=== PATIENT | female | born 1960 | race Caucasian/White ===

== ENCOUNTER 2018-09-15 14:00 | Emergency (ER) | payer OTHER ==
[2018-09-15] MEDS ORDERED: ASPIRIN 81 MG CHEWABLE TABLETS PO ONE (14:18)
[2018-09-15 14:23] VITALS: BMI 30.8
--- NOTE | 2018-09-15 14:23 | PDOC ---
Attending Attestation - Resident Resident Name: CarlosnadiaJesse - ED Attending Attestation I have performed the following: I have examined & evaluated the patient, The case was reviewed & discussed with the resident, I agree w/resident's findings & plan, Exceptions are as noted - HPI HPI: 09/15/18 14:22 58y F hx of HIV (well controlled), asthma, anxiety presents with chest pain since today. The patient describes her chest pain as a sticking sensation lasting for several minutes associated with mild diaphoresis before resolving. The symptoms are nonexertional there is no associated shortness of breath, hemoptysis, cough, leg swelling, fever, chills, nausea, vomiting. Patient does note that it hurts a little bit when she moving her left arm, recent trauma or heavy lifting. Prior history of smoking (stopped earlier this year) PMD: Lynne Noble Family hx: no known cad Social: former smoker - Physicial Exam PE: 09/15/18 14:58 GENERAL: The patient is awake, alert, and fully oriented, Nontoxic - in no acute distress. HEAD: Normocephalic, atraumatic. EYES: extraocular movements intact, sclera anicteric, conjunctiva clear. ENT: Normal voice, Moist mucous membranes. NECK: Normal range of motion, supple CHEST/LUNGS: Breath sounds equal, clear to auscultation bilaterally. No wheezes , no rhonchi, no rales. Moderate reproducible tenderness in the sternal border, HEART: Regular rate and rhythm, normal S1 and S2 without murmur, rub or gallop. ABDOMEN: Soft, nontender, normoactive bowel sounds. No guarding, no rebound. . No CVA tenderness MSK/EXTREMITIES: Normal range of motion, no edema. Mild tenderness palpation on the L trapezius NEUROLOGICAL: No facial assymetry, Normal speech, PSYCH: Normal mood, normal affect. SKIN: Warm, Dry, normal turgor, - Medical Decision Making 09/15/18 14:59 58-year-old female history of HIV, asthma, hl, presents with complaint of atypical CP. There are no exertional symptoms, clinical history is not suggestive of ACS. currently pain free. exam noted for reproducible cp/trapezius pain R arm bp 106/83 L arm bp 100/74 do not suspect dissection, pe, based on clinical findings/symptom consider ACS however symptoms atypical.. suspect sx are msk in nature - will give trial of tylenol will ck cxr, trop x 2 cxr will reassess Heart Score/ECG Review - ECG Impressions Comment:: 09/15/18 15:14 Twelve-lead EKG was performed and reviewed by me. There is normal sinus rhythm with a normal rate. Rate of 69 The axis is normal. The intervals are normal. There is normal R wave progression There are no ST or T wave abnormalities.
--- NOTE | 2018-09-15 14:33 | PDOC ---
History of Present Illness - General Chief Complaint: Chest Pain Stated Complaint: CHEST PAIN Time Seen by Provider: 09/15/18 14:09 History Source: Patient Exam Limitations: No Limitations - History of Present Illness Initial Comments: 09/15/18 14:30 Patient is 58F with history of HIV (well-controlled, last CD4>1000), asthma and htn here today complaining of chest pain that onset this morning. Patient stats that the pain is worse along her sternum and feels like an "inflammation". Denies any modifying factors such as inspiration, exertion, rest. Denies fevers , chills, nausea, vomiting, cough. Denies leg swelling, history of PE, recent travel. Denies headache, limb weakness, abdominal guillaume, dysuria. Patient states that she has had this kind of pain chronically and is due to get CT scan in two days. Has PCP. Past History - Past Medical History Allergies/Adverse Reactions: Allergies Allergy/AdvReac Type Severity Reaction Status Date / Time abacavir sulfate Allergy Severe Rash Verified 03/06/17 14:09 [[facility] Home Medications: Ambulatory Orders Methadone HCl [Methadose] 140 mg PO DAILY 05/14/16 Acetaminophen [Tylenol -] 650 mg PO Q6H PRN #60 tablet 01/01/18 Albuterol Sulfate Inhaler - [Ventolin HFA Inhaler -] 1 - 2 inh PO QID PRN #1 inh 01/14/18 Pantoprazole Sodium [Protonix -] 40 mg PO DAILY PRN #30 tab 01/20/18 Docusate Sodium [Colace -] 100 mg PO TID PRN #90 capsule 01/28/18 Valacyclovir HCl [Valtrex -] 500 mg PO BID #10 tablet 03/12/18 Cane 1 each ASDIR #1 each 03/16/18 Clotrimazole [Clotrimazole AF] 1 applic TP BID #30 g 05/21/18 Diclofenac Sodium [Voltaren] 4 gm TP Q6H PRN #100 gel..gram. 05/21/18 Aspirin [Aspirin EC] 81 mg PO DAILY #30 tablet. 06/18/18 Atorvastatin Ca [Lipitor] 20 mg PO HS #30 tablet 06/18/18 Cholecalciferol (Vitamin D3) [Vitamin D3] 2,000 unit PO DAILY #30 capsule Darunavir/Cobicistat [Prezcobix 800 mg-150 mg Tablet] 1 each PO DAILY #30 tablet 06/18/18 Dolutegravir Sodium [Tivicay] 50 mg PO DAILY #30 tablet 06/18/18 Emtricitabine [Emtriva -] 200 mg PO DAILY #30 capsule 06/18/18 Multivitamin,Ther and Minerals [Vitamin and Minerals] 1 each PO DAILY #30 tablet 06/18/18 Miconazole Nitrate [Monistat 3] 15 gm VG HS #3 crm.pf.nate 07/16/18 Miconazole Nitrate [Monistat Topical Cream -] 1 applic TP BID #1 tube 07/16/18 Amitriptyline HCl 25 mg PO HS #30 tablet 08/13/18 Sertraline HCl [Zoloft -] 50 mg PO DAILY #30 tablet 08/13/18 Zolpidem Tartrate [Ambien] 5 mg PO HS #30 tablet MDD 1 08/13/18 Hydrocortisone [Proctosol-Hc] 1 applic TP BID PRN #30 crm.pe.nate 08/14/18 Polyethylene Glycol 3350 [Miralax 119 gm Btl -] 17 gm PO DAILY PRN #1 bottle 06/22 Terbinafine HCl [Lamisil At] 1 applic TP BID #30 cream..g. 09/10/18 Cetirizine HCl [Zyrtec -] 10 mg PO DAILY PRN #30 tablet 09/14/18 Anemia: Yes (TREATED IN THE PAST) Asthma: Yes Cancer: No Cardiac Disorders: Yes (CHEST PAIN-STRESS TEST 07/2016-) CVA: No COPD: No CHF: No Dementia: No (PRE-DIABETIC NO MEDS) Diabetes: No GI Disorders: Yes (REFLUX) Disorders: No HTN: No Hypercholesterolemia: Yes (DX 2016) Liver Disease: No Psychiatric Problems: Yes Seizures: No Thyroid Disease: No - Surgical History Abdominal Surgery: No Appendectomy: No Cardiac Surgery: No Cholecystectomy: No Lung Surgery: No Neurologic Surgery: No Orthopedic Surgery: Yes (2012 - arthroscopy r knee, under general anesthesia, no complications) - Suicide/Smoking/Psychosocial Hx Smoking Status: Yes Smoking History: Former smoker Have you smoked in the past 12 months: Yes Number of Cigarettes Smoked Daily: 10 If you are a former smoker, when did you quit?: 9 months ago Cigars Per Day: 0 Information on smoking cessation initiated: No 'Breaking Loose' booklet given: 03/01/14 Hx Alcohol Use: No Drug/Substance Use Hx: Yes (STOPPED 2001) Substance Use Type: Heroin Hx Substance Use Treatment: Yes (ON [facility]-2001) Review of Systems - Review of Systems Comments:: 09/15/18 14:33 GENERAL/CONSTITUTIONAL: No fever or chills. No weakness. HEAD, EYES, EARS, NOSE AND THROAT: No change in vision. No sore throat. CARDIOVASCULAR: +chest pain no shortness of breath RESPIRATORY: No cough, wheezing, or hemoptysis. GASTROINTESTINAL: No nausea, vomiting, diarrhea or constipation. GENITOURINARY: No dysuria, frequency, or change in urination. MUSCULOSKELETAL: No joint or muscle swelling or pain. No neck or back pain. SKIN: No rash NEUROLOGIC: No headache, vertigo, loss of consciousness, or change in strength/ sensation. ENDOCRINE: No increased thirst. No abnormal weight change HEMATOLOGIC/LYMPHATIC: No anemia, easy bleeding, or history of blood clots. ALLERGIC/IMMUNOLOGIC: No hives or skin allergy. *Physical Exam - Vital Signs Last Vital Signs Temp Pulse Resp BP Pulse Ox 99 F 76 18 102/70 96 09/15/18 14:20 09/15/18 14:20 09/15/18 14:20 09/15/18 14:20 09/15/18 14:20 - Physical Exam Comments: 09/15/18 14:33 GENERAL: Awake, alert, and fully oriented, in no acute distress HEAD: No signs of trauma, normocephalic, atraumatic EYES: PERRLA, EOMI, sclera anicteric, conjunctiva clear ENT: Auricles normal inspection, hearing grossly normal, nares patent, oropharynx clear without exudates. Moist mucosa NECK: Normal ROM, supple, no lymphadenopathy, JVD, or masses LUNGS: No distress, speaks full sentences, clear to auscultation bilaterally HEART: Regular rate and rhythm, normal S1 and S2, no murmurs, rubs or gallops, peripheral pulses normal and equal bilaterally. +TTP along left sternal border ABDOMEN: Soft, nontender, normoactive bowel sounds. No guarding, no rebound. No masses EXTREMITIES: Normal inspection, Normal range of motion, no edema. No clubbing or cyanosis. NEUROLOGICAL: Cranial nerves II through XII grossly intact. Normal speech, normal gait, no focal sensorimotor deficits SKIN: Warm, Dry, normal turgor, no rashes or lesions noted. Moderate Sedation - Procedure Monitoring Vital Signs: Procedure Monitoring Vital Signs Temperature 99 F 09/15/18 14:20 Pulse Rate 76 09/15/18 14:20 Respiratory Rate 18 09/15/18 14:20 Blood Pressure 102/70 09/15/18 14:20 O2 Sat by Pulse Oximetry (%) 96 09/15/18 14:20 Heart Score/ECG Review - History History: Slightly suspicious - Electrocardiogram EKG: Normal - Age Age: 45-65 - Risk Factors Risk Factors Heart Score: Yes Smoking History Based on the list above the patient has:: 1-2 risk factors - Troponin Troponin: </= normal limit - Score Heart Score - Total: 2 ED Treatment Course - LABORATORY CBC & Chemistry Diagram: 09/15/18 14:24 09/15/18 14:24 - RADIOLOGY Radiology Studies Ordered: Category Date Time Status CHEST PA & LAT [RAD] Stat Radiology 09/15/18 14:18 Ordered Medical Decision Making - Medical Decision Making 09/15/18 14:33 Patient is 58F with history of HIV, asthma, anxiety here today with atypical chest pain. EKG shows NSR with rate of 69, no st elevations/depressions, normal axis, normal intervals, no significant t waves. DDx includes, but is not limited to: acs, arrhythmia, msk pain. Will HEART pathway patient. HEART score 2 pending trop. 09/15/18 18:01 Trop negx2. Patient's symptoms improved. CBC, CMP normal. Will discharge home with instructions to follow up with PCP. *DC/Admit/Observation/Transfer Diagnosis at time of Disposition: Chest pain - Discharge Dispostion Disposition: HOME Condition at time of disposition: Good Decision to Admit order: No - Referrals Referrals: Lynne Noble PERFORMANCE IMPROVEMENT ANALYST [Primary Care Provider] - - Patient Instructions Printed Discharge Instructions: DI for Atypical Chest Pain Additional Instructions: Please follow up with your primary care provider this week. Please return if you have any new, worsening or concerning symptoms, especially fever, shortness of breath and increasing pain. - Post Discharge Activity
[2018-09-15] MEDS ORDERED: ASPIRIN 81 MG CHEWABLE TABLETS ONE (14:35)
[2018-09-15 14:59] LABS: BASO % 0.3 % (0-2.0); EOS % 0.7 % (0-4.5); HEMATOCRIT 41.6 % (32.4-45.2); HEMOGLOBIN 13.7 GM/dL (10.7-15.3); LYMPH % 24.2 % (8-40); MCH 28.5 pg (25.7-33.7); MCHC 32.9 g/dl (32.0-36.0); MEAN CELL VOLUME 86.5 fl (80-96); MONO % 10.3 % (3.8-10.2); NEUT % 64.5 % (42.8-82.8); PLATELET COUNT 216 K/MM3 (134-434); RBC 4.81 M/mm3 (3.60-5.2); RDW 14.3 % (11.6-15.6); WHITE BLOOD COUNT 5.6 K/mm3 (4.0-10.0)
[2018-09-15 15:00] LABS: INR 1.03 (0.83-1.09); PROTHROMBIN TIME (PATIENT) 12.2 SEC (9.7-13.0)
[2018-09-15 15:09] LABS: ALBUMIN 3.6 g/dl (3.4-5.0); ALK PHOS 110 U/L (45-117); ANION GAP 4 MMOL/L (8-16); BILIRUBIN,TOTAL 0.2 mg/dL (0.2-1); BLOOD UREA NITROGEN 16 mg/dL (7-18); CALCIUM 8.8 mg/dL (8.5-10.1); CHLORIDE 104 mmol/L (98-107); CO2 31 mmol/L (21-32); CREATININE 1.2 mg/dL (0.55-1.3); GLUCOSE,RANDOM 99 mg/dL (74-106); MAGNESIUM 2.6 mg/dL (1.8-2.4); SGOT/AST 27 U/L (15-37); SGPT/ALT 42 U/L (13-61); SODIUM 138 mmol/L (136-145); TOT PROT 6.9 g/dl (6.4-8.2)
[2018-09-15] MEDS ORDERED: ACETAMINOPHEN 325 MG TABLET (FP) PO ONE (15:13)
[2018-09-15] MEDS ORDERED: ACETAMINOPHEN 325 MG TABLET (FP) ONE (15:21)
--- NOTE | 2018-09-15 16:23 | EKG ---
Test Reason : Blood Pressure : / mmHG Vent. Rate : 069 BPM Atrial Rate : 069 BPM P-R Int : 144 ms QRS Dur : 080 ms QT Int : 416 ms P-R-T Axes : 049 007 021 degrees QTc Int : 445 ms POOR DATA QUALITY, INTERPRETATION MAY BE ADVERSELY AFFECTED NORMAL SINUS RHYTHM JUNCTIONAL ST DEPRESSION, PROBABLY NORMAL BORDERLINE ECG WHEN COMPARED WITH ECG OF 14-SEP-2018 14:52, NO SIGNIFICANT CHANGE WAS FOUND Confirmed by Brandan Nieto ([id number]) on 09/15/2018 4:23:09 PM Referred By: Confirmed By:Brandan Nieto
[2018-09-15 17:14] VITALS: BP 112/65; PULSE 60; TEMP 98
== END 2018-09-15 18:21 | disposition home or self-care (01) ==
LOC: JER 14:00
DX: R07.9 Chest pain, unspecified (principal); I10 Essential (primary) hypertension; R73.03 Prediabetes; J45.909 Unspecified asthma, uncomplicated; F31.9 Bipolar disorder, unspecified; K21.9 Gastro-esophageal reflux disease without esophagitis; Z21 Asymptomatic human immunodeficiency virus [HIV] infection status; Z86.2 Personal history of diseases of the blood and blood-forming organs and certain disorders involving the immune mechanism
CPT/HCPCS: 36415; 71046-TC-FY; 80053; 82550; 82553; 83735; 84484; 85025; 85610; 93005; 93010; 99283-25

== ENCOUNTER 2018-09-25 14:43 | Emergency (ER) | payer OTHER ==
[2018-09-25 14:56] VITALS: BP 119/70; PULSE 73; TEMP 98.2; BMI 29.7
--- NOTE | 2018-09-25 15:10 | PDOC ---
Rapid Medical Evaluation Medical Evaluation: Allergies Allergy/AdvReac Type Severity Reaction Status Date / Time abacavir sulfate Allergy Severe Rash Verified 03/06/17 14:09 [From [facility]] 09/25/18 14:54 I have performed a brief in-person evaluation of this patient. The patient presents with a chief complaint of:Awoke with neck pain 3 days ago. No trauma. H/o HIV, depression, insomnia, OA Pertinent physical exam findings:Stable I have ordered the following:nothing The patient will proceed to the ED for further evaluation. Discharge Disposition - Diagnosis Neck pain - Referrals - Patient Instructions - Post Discharge Activity
[2018-09-25] MEDS ORDERED: diazePAM 5 MG TABLET PO ONE (16:22)
[2018-09-25] MEDS ORDERED: KETOROLAC TROMETHAMINE 30 MG/1 ML VIAL IM ONE (16:22)
[2018-09-25] MEDS ORDERED: diazePAM 5 MG TABLET ONE (16:25)
[2018-09-25] MEDS ORDERED: KETOROLAC TROMETHAMINE 30 MG/1 ML VIAL ONE (16:25)
--- NOTE | 2018-09-25 16:26 | PDOC ---
History of Present Illness - General Chief Complaint: Head/Neck problem Stated Complaint: NECK PAIN Time Seen by Provider: 09/25/18 15:28 History Source: Patient, Old Records Exam Limitations: No Limitations - History of Present Illness Initial Comments: 09/25/18 16:19 HISTORY OF PRESENT ILLNESS: This 58-year-old woman past medical history of HIV ( undetectable viral load, CD4 count >1000) presents emergency department for atraumatic neck pain which occurred while sleeping. Patient reports pain is been consistent over the past 3 days and denies any restriction in her movements. Patient reports ambulation increases her pain. She has not tried any [id number] medications for pain relief. No recent travel or sick contacts. PAST MEDICAL HISTORY: Denies past medical history SURGICAL HISTORY: Denies ALLERGIES: abacavir REVIEW OF SYSTEMS General/Constitutional: Denies fever or chills. Denies weakness, weight change. HEENT: Denies change in vision. Denies ear pain or discharge. Denies sore throat. Cardiovascular: Denies chest pain or shortness of breath. Respiratory: Denies cough, wheezing, or hemoptysis. Gastrointestinal: Denies nausea, vomiting, diarrhea or constipation. Denies rectal bleeding. Genitourinary: Denies dysuria, frequency, or change in urination. Musculoskeletal: see HPI Skin and breasts: Denies rash or easy bruising. Neurologic: Denies headache, vertigo, loss of consciousness, or loss of sensation. Psychiatric: Denies depression or anxiety. Endocrine: Denies increased thirst. Denies abnormal weight change. Hematologic/Lymphatic: Denies anemia, easy bleeding, or history of blood clots. Allergic/Immunologic: Denies hives or skin allergy. Denies latex allergy. PHYSICAL EXAM General Appearance: Well-appearing, appropriately dressed. No apparent distress , no intoxication. HEENT: EOMI, PERRLA, normal ENT inspection, normal voice, TMs normal, pharynx normal. No conjunctival pallor. No photophobia, scleral icterus. Neck: Supple. Trachea midline. No tenderness, rigidity, carotid bruit, stridor , lymphadenopathy, or thyromegaly. Respiratory/Chest: Lungs CTAB. No shortness of breath, chest tenderness, respiratory distress, accessory muscle use. No crackles, rales, rhonchi, stridor , wheezing, dullness Cardiovascular: RRR. S1, S2. No JVD, murmur, bradycardia, tachycardia. Vascular Pulses: Dorsalis-Pedis (R): 2+, Dorsalis-Pedis (L): 2+ Gastrointestinal/Abdominal: Normal bowel sounds. Abdomen soft, non-distended. No tenderness or rebound tenderness. No organomegaly, pulsatile mass, guarding, hernia, hepatomegaly, splenomegaly. Lymphatic: No adenopathy, tenderness. Musculoskeletal/Extremities: Palpable muscle spasms present in bilateral sternal cleidomastoid. Full range of motion of neck noted. Negative Spurling test. Negative cervical traction testing. Full sensation present in upper and lower extremities. Ambulatory Technologist strength 5/5. Integumentary: Appropriate color, dry, warm. No cyanosis, erythema, jaundice or rash Neurologic: sifter and miller II-XII intact. Fully oriented, alert. Appropriate mood/affect. Motor strength 5/5. No appreciable EOM palsy, facial droop or sensory deficit. Past History - Past Medical History Allergies/Adverse Reactions: Allergies Allergy/AdvReac Type Severity Reaction Status Date / Time abacavir sulfate Allergy Severe Rash Verified 09/25/18 14:54 [From [facility]] Home Medications: Ambulatory Orders Methadone HCl [Methadose] 140 mg PO DAILY 05/14/16 Albuterol Sulfate Inhaler - [Ventolin HFA Inhaler -] 1 - 2 inh PO QID PRN #1 inh 01/14/18 Pantoprazole Sodium [Protonix -] 40 mg PO DAILY PRN #30 tab 01/20/18 Docusate Sodium [Colace -] 100 mg PO TID PRN #90 capsule 01/28/18 Valacyclovir HCl [Valtrex -] 500 mg PO BID #10 tablet 03/12/18 Clotrimazole [Clotrimazole AF] 1 applic TP BID #30 g 05/21/18 Diclofenac Sodium [Voltaren] 4 gm TP Q6H PRN #100 gel..gram. 05/21/18 Aspirin [Aspirin EC] 81 mg PO DAILY #30 tablet. 06/18/18 Atorvastatin Ca [Lipitor] 20 mg PO HS #30 tablet 06/18/18 Cholecalciferol (Vitamin D3) [Vitamin D3] 2,000 unit PO DAILY #30 capsule Darunavir/Cobicistat [Prezcobix 800 mg-150 mg Tablet] 1 each PO DAILY #30 tablet 06/18/18 Dolutegravir Sodium [Tivicay] 50 mg PO DAILY #30 tablet 06/18/18 Emtricitabine [Emtriva -] 200 mg PO DAILY #30 capsule 06/18/18 Multivitamin,Ther and Minerals [Vitamin and Minerals] 1 each PO DAILY #30 tablet 06/18/18 Miconazole Nitrate [Monistat 3] 15 gm VG HS #3 crm.pf.nate 07/16/18 Amitriptyline HCl 25 mg PO HS #30 tablet 08/13/18 Sertraline HCl [Zoloft -] 50 mg PO DAILY #30 tablet 08/13/18 Zolpidem Tartrate [Ambien] 5 mg PO HS #30 tablet MDD 1 08/13/18 Hydrocortisone [Proctosol-Hc] 1 applic TP BID PRN #30 crm.pe.nate 08/14/18 Polyethylene Glycol 3350 [Miralax 119 gm Btl -] 17 gm PO DAILY PRN #1 bottle 06/22 Terbinafine HCl [Lamisil At] 1 applic TP BID #30 cream..g. 09/10/18 Cetirizine HCl [Zyrtec -] 10 mg PO DAILY PRN #30 tablet 09/14/18 Sertraline HCl [Zoloft] 100 mg PO AM #30 tablet 09/23/18 traZODone HCL [Trazodone HCl] 100 mg PO HS #30 tablet 09/23/18 Acetaminophen [Tylenol -] 650 mg PO Q6H PRN #60 tablet 09/25/18 Methocarbamol [Robaxin -] 1,500 mg PO Q8H PRN #30 tablet 09/25/18 Anemia: Yes (TREATED IN THE PAST) Asthma: Yes Cancer: No Cardiac Disorders: Yes (CHEST PAIN-STRESS TEST 07/2016-) CVA: No COPD: No CHF: No Dementia: No (PRE-DIABETIC NO MEDS) Diabetes: No GI Disorders: Yes (REFLUX) Disorders: No HTN: No Hypercholesterolemia: Yes (2016) Liver Disease: No Psychiatric Problems: Yes Seizures: No Thyroid Disease: No - Surgical History Abdominal Surgery: No Appendectomy: No Cardiac Surgery: No Cholecystectomy: No Lung Surgery: No Neurologic Surgery: No Orthopedic Surgery: Yes (2012 - arthroscopy r knee, under general anesthesia, no complications) - Suicide/Smoking/Psychosocial Hx Smoking Status: Yes Smoking History: Former smoker Have you smoked in the past 12 months: Yes Number of Cigarettes Smoked Daily: 10 If you are a former smoker, when did you quit?: 9 months ago Cigars Per Day: 0 Information on smoking cessation initiated: No 'Breaking Loose' booklet given: 03/01/14 Hx Alcohol Use: No Drug/Substance Use Hx: Yes (STOPPED 2001) Substance Use Type: Heroin Hx Substance Use Treatment: Yes (ON ) *Physical Exam - Vital Signs Last Vital Signs Temp Pulse Resp BP Pulse Ox 98.2 F 73 18 119/70 98 09/25/18 14:54 09/25/18 14:54 09/25/18 14:54 09/25/18 14:54 09/25/18 14:54 Moderate Sedation - Procedure Monitoring Vital Signs: Procedure Monitoring Vital Signs Temperature 98.2 F 09/25/18 14:54 Pulse Rate 73 09/25/18 14:54 Respiratory Rate 18 09/25/18 14:54 Blood Pressure 119/70 09/25/18 14:54 O2 Sat by Pulse Oximetry (%) 98 09/25/18 14:54 Medical Decision Making - Medical Decision Making 09/25/18 16:19 A/P: 58-year-old female bilateral lateral neck pain for 3 days Reproducible bilateral lateral neck pain Negative Spurling test Full sensation noted to bilateral upper and lower extremities Denies dizziness Physical exam is consistent with musculoskeletal pain. I'll give the patient's 30 of Toradol intramuscular and 5 of Valium orally Reassess 09/25/18 17:20 Patient with relief of pain after receiving Valium and Toradol. I'll discharge the patient home with prescription for Robaxin and for her to follow-up with her ID specialist on Friday as previously scheduled. *DC/Admit/Observation/Transfer Diagnosis at time of Disposition: Neck pain - Discharge Dispostion Disposition: HOME Condition at time of disposition: Fair Decision to Admit order: No - Prescriptions Prescriptions: Methocarbamol [Robaxin -] 1,500 mg PO Q8H PRN #30 tablet PRN Reason: Muscle Spasms - Referrals Referrals: Lynne Noble, SILICATOR [Primary Care Provider] - - Patient Instructions Additional Instructions: Rest, no heavy lifting or exercise until pain is resolved Hot soaks to neck and low back as often as possible/hot showers or Jacuzzis No massage or therapy until spasm is gone Continue ibuprofen 2-200 mg tablets every 6 hours for the next 3 days then as needed for pain and swelling Robaxin 1500mg every 8 hours as needed for spasm If not significant improvement within 24 hours with medication and rest regime, followup with private physician for change in medications and /or therapy. - Post Discharge Activity
== END 2018-09-25 17:29 | disposition home or self-care (01) ==
LOC: JERFT 14:43
PROC: 3E0233Z Introduction of Anti-inflammatory into Muscle, Percutaneous Approach (ICD-10-PCS; principal; 2018-09-25)
DX: M54.2 Cervicalgia (principal); E78.00 Pure hypercholesterolemia, unspecified; R73.03 Prediabetes; K21.9 Gastro-esophageal reflux disease without esophagitis; F99 Mental disorder, not otherwise specified; J45.909 Unspecified asthma, uncomplicated; Z21 Asymptomatic human immunodeficiency virus [HIV] infection status; Z86.2 Personal history of diseases of the blood and blood-forming organs and certain disorders involving the immune mechanism; Z87.891 Personal history of nicotine dependence
CPT/HCPCS: 96372; 99281-25

== ENCOUNTER 2019-02-24 16:19 | Emergency (ER) | payer OTHER ==
[2019-02-24 16:30] VITALS: BP 116/74; PULSE 69; TEMP 98.4; BMI 29.6
--- NOTE | 2019-02-24 17:21 | PDOC ---
History of Present Illness - General Chief Complaint: Blood Pressure Problem Stated Complaint: HIGH BLOOD PRESSURE Time Seen by Provider: 02/24/19 16:41 - History of Present Illness Initial Comments: 02/24/19 17:21 CHIEF COMPLAINT: high blood pressure HISTORY OF PRESENT ILLNESS: 58 yo F with hx of HIV, HLD sent from [facility] for evaluation of blood pressure. Patient states that her blood pressure at [facility] was "162." She denies any symptoms including SOB, chest pain, headache, dizziness, blurry vision. She states "I just wanted my blood pressure checked again here." No recent travel or sick contacts. PAST MEDICAL HISTORY: Denies past medical history FAMILY HISTORY: Denies SOCIAL HISTORY: Denies tobacco, alcohol, illicit drug use. SURGICAL HISTORY: Denies ALLERGIES: No known drug allergies REVIEW OF SYSTEMS General/Constitutional: Denies fever or chills. Denies weakness, weight change. HEENT: Denies change in vision. Denies ear pain or discharge. Denies sore throat. Cardiovascular: Denies chest pain or shortness of breath. Respiratory: Denies cough, wheezing, or hemoptysis. Gastrointestinal: Denies nausea, vomiting, diarrhea or constipation. Denies rectal bleeding. Genitourinary: Denies dysuria, frequency, or change in urination. Musculoskeletal: Denies joint or muscle swelling or pain. Denies neck or back pain. Skin and breasts: Denies rash or easy bruising. Neurologic: Denies headache, vertigo, loss of consciousness, or loss of sensation. PHYSICAL EXAM General Appearance: Well-appearing, appropriately dressed. No apparent distress , no intoxication. HEENT: EOMI, PERRLA, normal ENT inspection, normal voice, TMs normal, pharynx normal. No conjunctival pallor. No photophobia, scleral icterus. Neck: Supple. Trachea midline. No tenderness, rigidity, carotid bruit, stridor , lymphadenopathy, or thyromegaly. Respiratory/Chest: Lungs CTAB. No shortness of breath, chest tenderness, respiratory distress, accessory muscle use. No crackles, rales, rhonchi, stridor , wheezing, dullness Cardiovascular: RRR. S1, S2. No JVD, murmur, bradycardia, tachycardia. Vascular Pulses: Dorsalis-Pedis (R): 2+, Dorsalis-Pedis (L): 2+ Gastrointestinal/Abdominal: Normal bowel sounds. Abdomen soft, non-distended. No tenderness or rebound tenderness. No organomegaly, pulsatile mass, guarding , hernia, hepatomegaly, splenomegaly. Lymphatic: No adenopathy, tenderness. Musculoskeletal/Extremities: Normal inspection. FROM of all extremities, normal capillary refill. Pelvis Stable. No CVA tenderness. No tenderness to extremities, pedal edema, swelling, erythema or deformity. Integumentary: Appropriate color, dry, warm. No cyanosis, erythema, jaundice or rash Neurologic: life enrichment specialist II-XII intact. Fully oriented, alert. Appropriate mood/affect. Motor strength 5/5. No appreciable EOM palsy, facial droop or sensory deficit. 02/24/19 17:21 02/24/19 17:22 Past History - Past Medical History Allergies/Adverse Reactions: Allergies Allergy/AdvReac Type Severity Reaction Status Date / Time abacavir sulfate Allergy Severe Rash Verified 02/24/19 16:30 [[facility]] Home Medications: Ambulatory Orders Methadone HCl [Methadose] 140 mg PO DAILY 05/14/16 Aspirin [Aspirin EC] 81 mg PO DAILY #30 tablet.dr 06/18/18 Polyethylene Glycol 3350 [Miralax 119 gm Btl -] 17 gm PO DAILY PRN #1 bottle 06/22 Terbinafine HCl [Lamisil At] 1 applic TP BID #30 cream..g. 09/10/18 Atorvastatin Ca [Lipitor] 20 mg PO HS #30 tablet 11/24/18 Cholecalciferol (Vitamin D3) [Vitamin D3] 2,000 unit PO DAILY #30 capsule Darunavir/Cobicistat [Prezcobix 800 mg-150 mg Tablet] 1 each PO DAILY #30 tablet 11/24/18 Dolutegravir Sodium [Tivicay] 50 mg PO DAILY #30 tablet 11/24/18 Emtricitabine [Emtriva -] 200 mg PO DAILY #30 capsule 11/24/18 Multivitamin,Ther and Minerals [Vitamin and Minerals] 1 each PO DAILY #30 tablet 11/24/18 Albuterol Sulfate Inhaler - [Ventolin HFA Inhaler -] 1 - 2 inh PO QID PRN #1 inh 12/15/18 Docusate Sodium [Colace -] 100 mg PO TID PRN #90 capsule 12/15/18 Cetirizine HCl [Zyrtec -] 10 mg PO DAILY PRN #30 tablet 01/15/19 Zolpidem Tartrate [Ambien] 10 mg PO DAILY 01/18/19 Quetiapine Fumarate [Seroquel -] 25 mg PO HS #30 tablet 02/24/19 Sertraline HCl [Zoloft -] 50 mg PO AM #30 tablet 02/24/19 Anemia: Yes (TREATED IN THE PAST) Asthma: Yes Cancer: No Cardiac Disorders: Yes (CHEST PAIN-STRESS TEST 07/2016-) CVA: No COPD: No CHF: No Dementia: No (PRE-DIABETIC NO MEDS) Diabetes: No GI Disorders: Yes (REFLUX) Disorders: No HTN: No Hypercholesterolemia: Yes (DX 2016) Liver Disease: No Psychiatric Problems: Yes Seizures: No Thyroid Disease: No - Surgical History Abdominal Surgery: No Appendectomy: No Cardiac Surgery: No Cholecystectomy: No Lung Surgery: No Neurologic Surgery: No Orthopedic Surgery: Yes (2012 - arthroscopy r knee, under general anesthesia, no complications) - Suicide/Smoking/Psychosocial Hx Smoking Status: Yes Smoking History: Unknown if ever smoked Have you smoked in the past 12 months: No Number of Cigarettes Smoked Daily: 10 If you are a former smoker, when did you quit?: 9 months ago Cigars Per Day: 0 Information on smoking cessation initiated: No 'Breaking Loose' booklet given: 03/01/14 Hx Alcohol Use: No Drug/Substance Use Hx: Yes Substance Use Type: Heroin Hx Substance Use Treatment: Yes (ON ) Cardiac Specific PMH - Complaint Specific PMHX Pacemaker: No *Physical Exam - Vital Signs Last Vital Signs Temp Pulse Resp BP Pulse Ox 98.4 F 69 16 116/74 99 02/24/19 16:28 02/24/19 16:28 02/24/19 16:28 02/24/19 16:28 02/24/19 16:28 Medical Decision Making - Medical Decision Making 02/24/19 17:38 58 yo F with hx of HIV, HLD, presents to ED for evaluation of transient elevated BP. Patient's BP normal on arrival to ED. Will repeat prior to DC. Patient continues to be asymptomatic. *DC/Admit/Observation/Transfer Diagnosis at time of Disposition: Blood pressure check - Discharge Dispostion Disposition: HOME Condition at time of disposition: Stable Decision to Admit order: No - Referrals Referrals: Mikey Mchugh [Primary Care Provider] - - Patient Instructions Printed Discharge Instructions: How to Monitor Your Blood Pressure at Home - Post Discharge Activity
== END 2019-02-24 18:36 | disposition home or self-care (01) ==
LOC: JER 16:19
DX: Z21 Asymptomatic human immunodeficiency virus [HIV] infection status (principal); Z01.31 Encounter for examination of blood pressure with abnormal findings; F11.90 Opioid use, unspecified, uncomplicated; Z87.891 Personal history of nicotine dependence; R73.03 Prediabetes; E78.00 Pure hypercholesterolemia, unspecified; F99 Mental disorder, not otherwise specified; J45.909 Unspecified asthma, uncomplicated
CPT/HCPCS: 99281-25

== ENCOUNTER → 2019-04-07 | Outpatient (CLI) | payer OTHER | LOC: YHH 14:06 ==

== ENCOUNTER 2019-05-17 06:02 | Inpatient (IN) | payer OTHER ==
[2019-05-10 12:15] VITALS: BMI 31.8
[2019-05-17] MEDS ORDERED: CEFAZOLIN 2 GM in DEXTROSE 5%-WATER - 50 ML IVPB ONE (06:44)
[2019-05-17] MEDS ORDERED: TRANEXAMIC ACID 1000 MG/10 ML VIAL IVPUSH ONE ×2 (06:44→16:15)
[2019-05-17] MEDS ORDERED: ceFAZolin SODIUM 1 GM VIAL ONE ×3 (07:03→15:48)
[2019-05-17] MEDS ORDERED: PROPOFOL 20 ML ONE ×7 (07:03→11:34)
[2019-05-17] MEDS ORDERED: DEXAMETHASONE SOD PHOSPHATE 4 MG/1 ML VIAL ONE ×2 (07:03→11:04)
[2019-05-17] MEDS ORDERED: ONDANSETRON 4 MG/2 ML VIAL ONE (07:03)
[2019-05-17] MEDS ORDERED: ePHEDrine SULFATE 50 MG/1 ML AMPULE ONE ×3 (07:08→14:29)
[2019-05-17] MEDS ORDERED: PHENYLEPHRINE HCL 10 MG/1 ML SINGLE DOSE VIAL ONE ×2 (07:08→13:31)
[2019-05-17] MEDS ORDERED: SUCCINYLCHOLINE CHLORIDE 200 MG/10 ML SYRINGE ONE ×2 (07:08→11:08)
[2019-05-17] MEDS ORDERED: SODIUM CHLORIDE 0.9% P/F 10 ML VIAL IJ ONE ×3 (07:10→13:34)
[2019-05-17] MEDS ORDERED: VANCOMYCIN 1,000 MG VIAL (RESTRICTED TO ID ONLY) ONE ×2 (07:17→14:15)
[2019-05-17] MEDS: PANTOPRAZOLE 40 MG TABLET (FP) PO ONE ×2 (07:20→17:44)
[2019-05-17] MEDS: oxyCODONE HCL 10 MG SUSTAINED ACTING TABLET PO ONE ×2 (07:20→17:43)
[2019-05-17] MEDS: CELECOXIB 200 MG CAPSULE PO ONE ×2 (07:20→17:43)
--- NOTE | 2019-05-17 07:20 | HP ---
Admitting History and Physical - Admission Chief Complaint: right knee osteoarthritis x years History of Present Illness: 58 year old female presents in regard to their right knee. Long-standing history of right knee osteoarthritis. Patient complains of pain, limited range of motion, difficulty ambulating, and difficulty with activities of daily living. Patient has failed conservative treatment options including PO medications, activity modification, injections, and exercise programs. At this point, patient like to proceed with surgical intervention, right total knee arthroplasty MAKOplasty. History Source: Patient - Past Medical History CLOTHING CUTTER: Yes: Peripheral Neuropathy. No: Alzheimer's, CVA, Dementia, Migraine, Multiple Sclerosis, Parkinson's, Seizure, Syncope, TIA, Vertigo, Other Cardiovascular: Yes: Hyperlipdemia. No: AFIB, Aneurysm, Aortic Insufficiency, Aortic Stenosis, CAD, CHF, Deep Vein Thrombosis, HTN, VT, Mitral Insufficiency, Mitral Stenosis, Murmur, Pulmonary Hypertension, Other Infectious Disease: Yes: HIV. No: AIDS, C-Diff, Herpes Zoster, MRSA, STD's, Tuberculosis, VREF, Other Psych: Yes: Depression. No: Addictions, Anxiety, Bipolar, Panic, Psychosis, Schizophrenia, Other - Past Surgical History Past Surgical History: Yes: None Additional Past Surgical History: See written history & physical. - Smoking History Smoking history: Former smoker Have you smoked in the past 12 months: Yes Aproximately how many cigarettes per day: 10 If you are a former smoker, when did you quit?: 9 MONTHS AGO - Alcohol/Substance Use Hx Alcohol Use: No Home Medications - Allergies Allergies/Adverse Reactions: Allergies Allergy/AdvReac Type Severity Reaction Status Date / Time abacavir sulfate Allergy Severe Rash Verified 05/10/19 11:54 [From [facility]] - Home Medications Home Medications: Ambulatory Orders Methadone HCl [Methadose] 140 mg PO DAILY 05/14/16 Polyethylene Glycol 3350 [Miralax 119 gm Btl -] 17 gm PO DAILY PRN #1 bottle 06/22 Albuterol Sulfate Inhaler - [Ventolin HFA Inhaler -] 1 - 2 inh PO QID PRN #1 inh 12/15/18 Atorvastatin Ca [Lipitor] 20 mg PO HS #30 tablet 03/17/19 Cholecalciferol (Vitamin D3) [Vitamin D3] 2,000 unit PO DAILY #30 capsule Docusate Sodium [Colace -] 100 mg PO TID PRN #90 capsule 03/17/19 Multivitamin,Ther and Minerals [Vitamin and Minerals] 1 each PO DAILY #30 tablet 03/17/19 Diphenhydramine HCl [Benadryl -] 1 cap PO Q8H PRN #15 capsule MDD 3 03/26/19 Aspirin [Aspirin EC] 81 mg PO DAILY 05/10/19 Clotrimazole [Clotrimazole AF] 1 applic TP BID #30 cream..g. 05/11/19 Darunavir/Cobicistat [Prezcobix 800 mg-150 mg Tablet] 1 each PO HS 05/17/19 Dolutegravir Sodium [Tivicay] 50 mg PO HS 05/17/19 Emtricitabine [Emtriva -] 200 mg PO HS 05/17/19 Zolpidem Tartrate [Ambien] 10 mg PO HS 05/17/19 Review of Systems - Review of Systems Musculoskeletal: reports: Crepitus (right knee), Decreased ROM (right knee), Joint Pain (right knee) Physical Examination Vital Signs: Vital Signs Temperature 98.9 F 05/17/19 07:04 Pulse Rate 76 05/17/19 07:04 Respiratory Rate 18 05/17/19 07:04 Blood Pressure 113/69 05/17/19 07:04 O2 Sat by Pulse Oximetry (%) Constitutional: Yes: Well Nourished, No Distress Eyes: Yes: Conjunctiva Clear HENT: Yes: Atraumatic Neck: Yes: Supple Cardiovascular: Yes: Regular Rate and Rhythm Respiratory: Yes: Regular Gastrointestinal: Yes: Soft ...Rectal Exam: Yes: Deferred Musculoskeletal: Yes: Joint Stiffness (right knee), Joint Swelling (right knee) Assessment/Plan 58 year old female presents in regard to their right knee. Long-standing history of right knee osteoarthritis. Patient complains of pain, limited range of motion, difficulty ambulating, and difficulty with activities of daily living. Patient has failed conservative treatment options including PO medications, activity modification, injections, and exercise programs. At this point, patient like to proceed with surgical intervention, right total knee arthroplasty MAKOplasty. Pros, cons, risks, benefits, and alternatives of a right total knee arthroplasty, MAKOplasty were discussed with the patient at length. Patient confirms their understanding and consents to proceed with a right total knee arthroplasty MAKOplasty.
[2019-05-17] MEDS ORDERED: MIDAZOLAM HCL 2 MG/2 ML SINGLE DOSE VIAL ONE ×3 (07:27→12:03)
[2019-05-17] MEDS ORDERED: ONDANSETRON 4 MG/2 ML VIAL IVPUSH PRN ×2 (07:31→17:28)
[2019-05-17] MEDS ORDERED: LACTATED RINGERS SOLUTION 1,000 ML IV SCH ×2 (07:45→17:30)
[2019-05-17] MEDS ORDERED: KETOROLAC TROMETHAMINE 30 MG/1 ML VIAL ONE ×2 (11:04→16:33)
[2019-05-17] MEDS ORDERED: oxyCODONE HCL 5 MG TABLET PO PRN (11:57)
[2019-05-17] MEDS ORDERED: BUPIVACAINE LIPOSOME/PF (EXPAREL) 266 MG/20 ML VIAL ONE (12:03)
[2019-05-17] MEDS ORDERED: VANCOMYCIN 1,000 MG VIAL (RESTRICTED TO ID ONLY) IVPB ONE (16:15)
[2019-05-17] MEDS ORDERED: ACETAMINOPHEN INJECTION 100 ML IVPB ONE (16:33)
[2019-05-17] MEDS ORDERED: traMADol HCL 50 MG TABLET ONE (16:34)
[2019-05-17] MEDS ORDERED: ACETAMINOPHEN 1000 MG/100 ML VIAL (NON FORMULARY) IVPB ONE ×2 (17:00→17:27)
[2019-05-17] MEDS ORDERED: ALBUTEROL SO4 8 GM HFA INHALER IH PRN (17:18)
[2019-05-17] MEDS ORDERED: POLYETHYLENE GLYCOL 3350 119 GM BTL PO PRN (17:18)
[2019-05-17] MEDS ORDERED: DOCUSATE SODIUM 100 MG CAPSULE (FP) PO PRN (17:18)
--- NOTE | 2019-05-17 17:22 | OP ---
Operative Note - Note: Operative Date: 05/17/19 Pre-Operative Diagnosis: right knee OA Operation: right TKA Post-Operative Diagnosis: Same as Pre-op Surgeon: Dieter Garcia Drop Board Worker: Josie Moore Anesthesia: Spinal Estimated Blood Loss (mls): 250
[2019-05-17] MEDS ORDERED: MAG HYDROX/AL HYDROX/SIMETH 30 ML UNIT-DOSE CUP PO PRN (17:28)
[2019-05-17] MEDS ORDERED: MAGNESIUM HYDROX 2400MG/30ML ORAL SUSPENSION 30 ML CUP PO PRN (17:28)
[2019-05-17] MEDS: KETOROLAC TROMETHAMINE 30 MG/1 ML VIAL IVPUSH SCH ×2 (17:30→23:33)
[2019-05-17] MEDS: traMADol HCL 50 MG TABLET PO SCH ×2 (17:44→23:33)
[2019-05-17] MEDS: VANCOMYCIN 1,000 MG in DEXTROSE 5%-WATER - 250 ML IVPB ONE ×2 (17:44→18:22)
[2019-05-17] MEDS: CEFAZOLIN 2 GM/D5W 2 GM/50 ML ML IVPB SCH (18:24)
[2019-05-17] MEDS: oxyCODONE HCL 5 MG TABLET PO PRN ×2 (18:30→22:22)
[2019-05-17] MEDS ORDERED: HYDROmorphone HCL CARPU-JECT 1 MG/1 ML DISP.SYRIN ONE (20:03)
[2019-05-17] MEDS ORDERED: HYDROmorphone HCL CARPU-JECT 1 MG/1 ML DISP.SYRIN IVPB ONE (20:15)
--- NOTE | 2019-05-17 20:56 | SPEC ---
DATE OF OPERATION: 05/17/2019 PREOPERATIVE DIAGNOSIS: Right knee osteoarthritis. POSTOPERATIVE DIAGNOSIS: Right knee osteoarthritis. PROCEDURE: Right total knee replacement with MAKOplasty robotic navigation. ATTENDING SURGEON: Faby Merritt MD PRICK STITCHER: HAM [place] ANESTHESIA: Spinal plus sedation. ESTIMATED BLOOD LOSS: 250 mL. COMPLICATIONS: None. DISPOSITION: The patient was transferred to the PACU in stable condition. IMPLANTS USED: Tayler Triathlon TS size 2 femoral component with 12-mm x 15-mm femoral stem, [place] Triathlon TS size 1 tibial component with 50 x 12-mm tibial stem, 16-mm total stabilized polyethylene component, 29-mm patellar component. INDICATIONS: This is a 58-year-old female who presented to the office with severe right knee pain and notable varus deformity. She was seen and examined by Dr. Merritt and diagnosed with severe right knee osteoarthritis and bony erosion of the tibia. She was initially treated nonoperatively with injections, medications, and physical therapy but continued to have severe pain and ambulatory dysfunction. She was, therefore, indicated for a total knee replacement. The risks, benefits, and alternatives to the procedure were explained to the patient in great detail, and she elected to proceed with the surgery. DESCRIPTION OF PROCEDURE: On the day of surgery, the patient was taken to the operating room and placed on the OR table. Spinal anesthesia was administered by the anesthesiologist. The patient was then positioned supine on the table and all bony prominences were padded. The knee was then prepped and draped in the usual sterile fashion and intravenous antibiotics were given for infection prophylaxis. A surgical time-out was then performed with the team, and the patients identity, procedure, side, availability of implants, and the administration of antibiotics was confirmed. With the knee flexed, a midline incision was made and carried down through the subcutaneous fat to the underlying retinaculum. A medial parapatellar arthrotomy was performed. This was followed by a subperiosteal dissection of the tissue off the proximal, medial tibia. A portion of fat pad was removed from under the patellar tendon, and a small portion of fat was excised off the distal supracondylar femur. Electrocautery and an Aquamantys bipolar sealing device were used to achieve hemostasis. The knee was then flexed further and the anterior horn of the lateral meniscus was released from the midline. Next, the anterior and posterior cruciate ligaments were transected. Grade 4 changes were noted diffusely throughout the knee. Femoral and tibial checkpoints were then placed in the appropriate location using a mallet. Two parallel bicortical self-drilling pins were placed in the tibial diaphysis after making stab incisions and bluntly dissecting down to bone. Two pins were then placed in the distal supracondylar femur. The [employer] navigation arrays were then attached to both the femoral and tibial pins and the lower extremity was then registered to the robotic navigation device using various joint movements, as well as inputting several dozen reference points. The knee was then taken through a full range of motion with a corrective force applied. Alignment in varus/valgus as well as flexion/extension and soft tissue balance was measured in various positions. The navigation device showed a numerical and graphic representation of the soft tissue balance. The components were repositioned virtually using the software until optimal soft tissue balance was achieved on screen. Once this was accomplished, the final plan was saved and sent to the robot. Self-retaining retractors were then placed at the joint line for exposure and protection of the collateral ligaments. The robot was brought into the sterile field and registered with the navigation device. The robotic arm with attached oscillating saw blade was then used to perform femoral and tibial bone cuts as per the saved software plan. The femoral box cut was made using the appropriately sized manual cutting guide. The knee was then irrigated. Trial components were placed and the knee was taken through a full range of motion to assess soft tissue balance and alignment. The range of motion was found to be excellent and the soft tissue balance was optimal and according to plan. The knee was then put into extension and the patella everted. The synovium around the patella was circumscribed with electrocautery. A caliper was used to measure the patellar thickness and a saw was then used to resect the patella at the chondro-osseous junction. The cut surface was then sized and drilled for the appropriate patellar button, with care taken to medialize it. A trial patella was then placed and the knee was again taken through a full range of motion. The knee was found to have both good balance and good patellar tracking. All of the components were removed except the tibial base plate. The appropriate instrumentation was used to drill and punch the proximal tibia for the keel of the final component. All bony surfaces were then cleaned with pulsatile lavage and dried. Bone cement was then prepared on the back table, and final components were cemented in place in the usual fashion. Extruded cement was removed. The polyethylene trial was placed, the knee was put into extension, and axial pressure was applied for compression while the cement hardened. The patellar button was similarly cemented into place. Once the cement had hardened, the knee was taken through a full range of motion to assess stability, balance, and patellar tracking. This was found to be optimal and the trial polyethylene was exchanged for the appropriately sized real implant. The wound was then thoroughly irrigated with normal saline. A 3-minute dilute Betadine lavage was performed. The knee was again irrigated using a pulsatile lavage device. A periarticular injection was used to locally infiltrate the capsular tissues surrounding the implant and prosthesis. Then No. 1 Polysorb and 0 VLoc 180 barbed sutures were used to close the arthrotomy. Then No. 1 Polysorb and 2-0 VLoc 90 sutures were used in the subcutaneous tissues. Then 4-0 undyed Vicryl and Dermabond skin adhesive was used to close the stab incisions made for the navigation pins. The skin was closed using both 3-0 VLoc 90 suture in a running subcuticular fashion and Dermabond skin adhesive. Once this was completed a sterile Aquacel dressing and compressive Joao-wrap was applied. The patient was then awakened and taken to the PACU in stable condition. FABY MERRITT M.D. [id number]
[2019-05-17] MEDS: SENNOSIDES/DOCUSATE COMBO (SENNA PLUS) TABLET (UD) PO SCH (22:17)
[2019-05-17] MEDS: GABAPENTIN 300 MG CAPSULE (FP) PO SCH (22:17)
[2019-05-17] MEDS: CELECOXIB 200 MG CAPSULE PO SCH (22:18)
[2019-05-17] MEDS: oxyCODONE HCL 10 MG SUSTAINED ACTING TABLET PO SCH (22:18)
[2019-05-17] MEDS: ASCORBIC ACID 500 MG TABLET (FP) PO SCH (22:18)
[2019-05-17] MEDS: ATORVASTATIN CA 20 MG TABLET (FP) PO SCH (22:18)
[2019-05-17] MEDS: DARUNAVIR 800 MG/COBICISTAT 150MG TABLET PO SCH (22:19)
[2019-05-17] MEDS: EMTRICITABINE 200 MG CAPSULE PO SCH (22:19)
[2019-05-17] MEDS: DOLUTEGRAVIR SODIUM 50 MG TABLET (NON-FORMULARY) PO SCH (22:19)
[2019-05-17] MEDS: diphenhydrAMINE HCL 25 MG CAPSULE (FP) PO PRN (22:22)
[2019-05-18] MEDS ORDERED: DEXAMETHASONE SOD PHOSPHATE 10 MG/1 ML VIAL IVPB ONE
[2019-05-18] MEDS: CEFAZOLIN 2 GM/D5W 2 GM/50 ML ML IVPB SCH (02:18)
[2019-05-18] MEDS ORDERED: VANCOMYCIN HCL 1,500 MG in DEXTROSE 5%-WATER - 500 ML IVPB ONE (03:00)
[2019-05-18] MEDS ORDERED: PT OWN MED DRAWER 7, Y5N ONE ×2 (06:11→21:01)
[2019-05-18] MEDS: traMADol HCL 50 MG TABLET PO SCH ×4 (06:14→23:36)
[2019-05-18] MEDS: KETOROLAC TROMETHAMINE 30 MG/1 ML VIAL IVPUSH SCH ×2 (06:14→12:00)
[2019-05-18 07:27] LABS: HEMATOCRIT 32.9 % (32.4-45.2); HEMOGLOBIN 10.5 GM/dl (10.7-15.3); MCH 27.8 pg (25.7-33.7); MEAN CELL VOLUME 86.8 fl (80-96); MEAN PLT VOLUME 7.8 fl (7.5-11.1); PLATELET COUNT 206 K/MM3 (134-434); RBC 3.79 M/mm3 (3.60-5.2); RDW 14.3 % (11.6-15.6); WHITE BLOOD COUNT 12.4 K/mm3 (4.0-10.8)
[2019-05-18 07:40] LABS: CALCIUM 8.6 mg/dl (8.5-10); CREATININE 1.1 mg/dl (0.55-1.3); POTASSIUM 4.2 mmol/L (3.5-5.1)
[2019-05-18] MEDS: ASPIRIN 325 MG TABLET PO SCH (08:48)
[2019-05-18] MEDS: METHADONE HCL 40 MG DISPERSABLE TABLET PO SCH (09:15)
[2019-05-18] MEDS: oxyCODONE HCL 10 MG SUSTAINED ACTING TABLET PO SCH ×2 (09:16→21:18)
[2019-05-18] MEDS: CELECOXIB 200 MG CAPSULE PO SCH ×2 (09:17→21:17)
[2019-05-18] MEDS: ASCORBIC ACID 500 MG TABLET (FP) PO SCH ×2 (09:17→21:17)
[2019-05-18] MEDS: MULTIVITAMINS (DAILY MVI) TABLET (FP) PO SCH (09:17)
[2019-05-18] MEDS: GABAPENTIN 300 MG CAPSULE (FP) PO SCH ×2 (09:17→21:17)
[2019-05-18] MEDS: SENNOSIDES/DOCUSATE COMBO (SENNA PLUS) TABLET (UD) PO SCH ×2 (09:17→21:17)
[2019-05-18] MEDS: PANTOPRAZOLE 40 MG TABLET (FP) PO SCH (09:17)
[2019-05-18] MEDS: CLOTRIMAZOLE 1% CREAM 15 GM TUBE TP SCH ×2 (09:18→21:16)
--- NOTE | 2019-05-18 09:23 | PN ---
Progress Note, Physician Chief Complaint: s/p right total knee replacement NASREEN under spinal anesthesia History of Present Illness: post op day one with adductor canal block for post operative pain control - Current Medication List Current Medications: Active Medications Al Hydroxide/Mg Hydroxide (Mylanta Oral Suspension -) 30 ml PO Q4H PRN PRN Reason: DYSPEPSIA Albuterol Sulfate (Ventolin Hfa Inhaler -) 2 puff IH Q6H PRN PRN Reason: ASTHMA Ascorbic Acid (Vitamin C -) 500 mg PO BID [facility] Last Admin: 05/18/19 09:17 Dose: 500 mg Aspirin (Asa -) 325 mg PO DAILY@0800 [facility] Last Admin: 05/18/19 08:48 Dose: 325 mg Atorvastatin Calcium (Lipitor -) [address] [facility] Last Admin: 05/17/19 22:18 Dose: 20 mg Celecoxib (Celebrex -) 200 mg PO BID [facility] Last Admin: 05/18/19 09:17 Dose: 200 mg Clotrimazole (Lotrimin 1% Cream -) 1 applic TP BID [facility] Last Admin: 05/18/19 09:18 Dose: 1 applic Diphenhydramine HCl (Benadryl -) 25 mg PO Q8H PRN PRN Reason: FOR ITCHING Last Admin: 05/17/19 22:22 Dose: 25 mg Docusate Sodium (Colace -) 100 mg PO TID PRN PRN Reason: CONSTIPATION Emtricitabine (Emtriva -) [address] [facility] Last Admin: 05/17/19 22:19 Dose: 200 mg Fentanyl (Sublimaze Injection -) 25 mcg IVPUSH [id number] PRN PRN Reason: PAIN-PACU ORDER X 4 DOSES ONLY Fentanyl (Sublimaze Injection -) 50 mcg IVPUSH [id number] PRN PRN Reason: PAIN-PACU ORDER X 4 DOSES ONLY Gabapentin (Neurontin -) 300 mg PO BID [facility] Stop: 05/20/19 21:59 Last Admin: 05/18/19 09:17 Dose: 300 mg Ketorolac Tromethamine (Toradol Injection -) 30 mg IVPUSH Q6H [facility] Stop: 05/18/19 11:31 Last Admin: 05/18/19 06:14 Dose: 30 mg Magnesium Hydroxide (Milk Of Magnesia -) 30 ml PO PRN PRN PRN Reason: CONSTIPATION Methadone HCl (Dolophine -) 140 mg PO DAILY [facility] Last Admin: 05/18/19 09:15 Dose: 140 mg Multivitamins/Minerals/Vitamin C (Tab-A-Vit -) 1 tab PO DAILY [facility] Last Admin: 05/18/19 09:17 Dose: 1 tab Ondansetron HCl (Zofran Injection) 4 mg IVPUSH Q6H PRN PRN Reason: NAUSEA Oxycodone HCl (Roxicodone -) 10 mg PO Q3H PRN PRN Reason: PAIN LEVEL 6-10 Last Admin: 05/17/19 22:22 Dose: 10 mg Oxycodone HCl (Roxicodone -) 5 mg PO Q3H PRN PRN Reason: PAIN LEVEL 1-5 Oxycodone HCl (Oxycontin -) 10 mg PO BID [facility] Stop: 05/20/19 11:58 Last Admin: 05/18/19 09:16 Dose: 10 mg Pantoprazole Sodium (Protonix -) 40 mg PO DAILY [facility] Last Admin: 05/18/19 09:17 Dose: 40 mg Polyethylene Glycol (Miralax (For Daily Use) -) 17 gm PO DAILY PRN PRN Reason: CONSTIPATION Senna/Docusate Sodium (Pericolace -) 2 tablet PO BID [facility] Last Admin: 05/18/19 09:17 Dose: 2 tablet Tramadol HCl (Ultram -) 50 mg PO Q6H [facility] Last Admin: 05/18/19 06:14 Dose: 50 mg - Objective Vital Signs: Vital Signs Temperature 98.7 F 05/18/19 06:00 Pulse Rate 80 05/18/19 06:00 Respiratory Rate 16 05/18/19 08:22 Blood Pressure 100/59 L 05/18/19 06:00 O2 Sat by Pulse Oximetry (%) 97 05/18/19 08:22 Constitutional: Yes: Well Nourished Cardiovascular: Yes: WNL Respiratory: Yes: WNL Gastrointestinal: Yes: WNL Labs: CBC, BMP 05/18/19 07:10 05/18/19 07:10 Assessment/Plan Pain 6/10 currently, will receive pain medication, no nausea vomiting or other adverse anesthetic complications. Dept of anesthesiology will sign off care at this time
[2019-05-18] MEDS: INSULIN (NOVOLOG) ASPART 100 UNITS/ML 10ML VIAL SQ SCH ×2 (16:30→21:19)
[2019-05-18] MEDS: ATORVASTATIN CA 20 MG TABLET (FP) PO SCH (21:18)
[2019-05-18] MEDS: DARUNAVIR 800 MG/COBICISTAT 150MG TABLET PO SCH (21:20)
[2019-05-18] MEDS: EMTRICITABINE 200 MG CAPSULE PO SCH (21:21)
[2019-05-18] MEDS: DOLUTEGRAVIR SODIUM 50 MG TABLET (NON-FORMULARY) PO SCH (21:21)
[2019-05-18] MEDS: diphenhydrAMINE HCL 25 MG CAPSULE (FP) PO PRN (22:36)
--- NOTE | 2019-05-18 22:50 | PN ---
Progress Note (short form) - Note Progress Note: Pt seen and examined. Comfortable. AVSS Selected Entries 05/18/19 21:05 Temperature 99 F Pulse Rate 76 Respiratory 18 Rate Blood Pressure 100/56 L O2 Sat by Pulse 98 Oximetry (%) Oxygen Delivery Nasal Cannula Method Laboratory Tests 05/18/19 05/18/19 05/18/19 07:10 07:10 16:58 WBC 12.4 H Hgb 10.5 L Hct 32.9 Plt Count 206 Sodium 135 L Potassium 4.2 Chloride 101 Carbon Dioxide 25 Anion Gap 9 BUN 13.0 Creatinine 1.1 POC Glucometer 146 Gen: NAD RLE: c/d/i, NVID A/P POD #1 s/p R TKA PT/OOB - WBAT RLE Will need STR/SNF placement - she states that she does not have family that can stay with her multimedia specialist for the next few days if discharged home
[2019-05-19] MEDS: traMADol HCL 50 MG TABLET PO SCH (05:33)
[2019-05-19 06:12] VITALS: BP 109/63; PULSE 67; TEMP 98
[2019-05-19] MEDS: INSULIN (NOVOLOG) ASPART 100 UNITS/ML 10ML VIAL SQ SCH (06:26)
[2019-05-19 07:03] LABS: HEMATOCRIT 31.6 % (32.4-45.2); HEMOGLOBIN 10.2 GM/dl (10.7-15.3); MCH 27.9 pg (25.7-33.7); MCHC 32.3 g/dl (32.0-36.0); MEAN CELL VOLUME 86.4 fl (80-96); MEAN PLT VOLUME 8.1 fl (7.5-11.1); PLATELET COUNT 227 K/MM3 (134-434); RBC 3.66 M/mm3 (3.60-5.2); WHITE BLOOD COUNT 15.2 K/mm3 (4.0-10.8)
[2019-05-19] MEDS: ASCORBIC ACID 500 MG TABLET (FP) PO SCH (09:12)
[2019-05-19] MEDS: oxyCODONE HCL 10 MG SUSTAINED ACTING TABLET PO SCH (09:13)
[2019-05-19] MEDS: METHADONE HCL 40 MG DISPERSABLE TABLET PO SCH (09:14)
[2019-05-19] MEDS: MULTIVITAMINS (DAILY MVI) TABLET (FP) PO SCH (09:15)
[2019-05-19] MEDS: CELECOXIB 200 MG CAPSULE PO SCH (09:15)
[2019-05-19] MEDS: ASPIRIN 325 MG TABLET PO SCH (09:15)
[2019-05-19] MEDS: GABAPENTIN 300 MG CAPSULE (FP) PO SCH (09:15)
[2019-05-19] MEDS: SENNOSIDES/DOCUSATE COMBO (SENNA PLUS) TABLET (UD) PO SCH (09:16)
[2019-05-19] MEDS: CLOTRIMAZOLE 1% CREAM 15 GM TUBE TP SCH (09:20)
[2019-05-19] MEDS: PANTOPRAZOLE 40 MG TABLET (FP) PO SCH (09:23)
--- NOTE | 2019-05-19 13:19 | DS ---
Physical Examination Vital Signs: Vital Signs Temperature 98.0 F 05/19/19 05:00 Pulse Rate 67 05/19/19 05:00 Respiratory Rate 18 05/19/19 05:00 Blood Pressure 109/63 05/19/19 05:00 O2 Sat by Pulse Oximetry (%) 99 05/19/19 05:00 Labs: CBC, BMP 05/19/19 06:55 05/18/19 07:10 Discharge Summary Problems reviewed: Yes Reason For Visit: RIGHT KNEE OSTEOARTHRITIS Current Active Problems Osteoarthritis of right knee (Acute) Procedures: Principal: right NASREEN TKA Hospital Course: Admitted for elective surgery. Procedure performed without complications. Pt received postoperative antibiotic prophylaxis and DVT ppx. Ambulated with physical therapy. Stable for discharge home with outpatient followup. Condition: Stable - Instructions Diet, Activity, Other Instructions: Dr. Garcia - Knee Replacement Instructions Keep the Aquacel dressing on until removed by Dr. Garcia in 10-14 days - it is antibacterial and waterproof and you can shower with it on. Call the office for a follow-up appointment with Dr. Garcia in 10-14 days. Take one Aspirin 325mg daily for 6 weeks to prevent blood clots in your legs. Take one Pantoprazole 40mg daily for 6 weeks to protect against heartburn and ulcers. Take Cephalexin (antibiotic) 3x/day for 14 days to help prevent skin infection. Take Celebrex 200mg twice daily for 30 days to reduce swelling and inflammation. Take a multivitamin, stool softener, and extra Vitamin C supplement daily. For pain: Take 1 -2 Percocet tablets every 4 hours as needed. Activity: You can put as much weight on the operative leg as you want. Right after you get home, there will be a physical therapist coming to your house to help you walk around and bend/straighten your knee. After your follow-up appointment, you will be sent for more intensive outpatient physical therapy which will include machines and equipment that the home therapist cannot bring to your house. Always use a walker or cane for balance and to prevent falls. Expect to see swelling/bruising from the operative site all the way down to your toes. Wear the compression stocking on the operative side during the day to minimize how much swelling there is in your foot/ankle. Don't wear the stocking at night. You don't have to wear a stocking on the other side. Disposition: VNS/HOME HEALTH CARE - Home Medications Comprehensive Discharge Medication List: Ambulatory Orders Methadone HCl [Methadose] 140 mg PO DAILY 05/14/16 Polyethylene Glycol 3350 [Miralax 119 gm Btl -] 17 gm PO DAILY PRN #1 bottle 06/22 Albuterol Sulfate Inhaler - [Ventolin HFA Inhaler -] 1 - 2 inh PO QID PRN #1 inh 12/15/18 Atorvastatin Ca [Lipitor] 20 mg PO HS #30 tablet 03/17/19 Cholecalciferol (Vitamin D3) [Vitamin D3] 2,000 unit PO DAILY #30 capsule Docusate Sodium [Colace -] 100 mg PO TID PRN #90 capsule 03/17/19 Multivitamin,Ther and Minerals [Vitamin and Minerals] 1 each PO DAILY #30 tablet 03/17/19 Diphenhydramine HCl [Benadryl Capsule -] 1 cap PO Q8H PRN #15 capsule MDD 3 Clotrimazole [Clotrimazole AF] 1 applic TP BID #30 cream..g. 05/11/19 Darunavir/Cobicistat [Prezcobix 800 mg-150 mg Tablet] 1 each PO HS 05/17/19 Dolutegravir Sodium [Tivicay] 50 mg PO HS 05/17/19 Emtricitabine [Emtriva -] 200 mg PO HS 05/17/19 Zolpidem Tartrate [Ambien] 10 mg PO HS 05/17/19 Ascorbic Acid [Vitamin C -] 500 mg PO BID tablet 05/19/19 Aspirin [ASA -] 325 mg PO DAILY@0800 #40 tablet 05/19/19 Celecoxib [CeleBREX -] 200 mg PO BID #60 capsule 05/19/19 Cephalexin Monohydrate [Keflex -] 500 mg PO TID #42 capsule 05/19/19 Oxycodone HCl/Acetaminophen [Percocet 5-325 mg Tablet] 1 - 2 tab PO Q4H PRN #60 tablet MDD 10 05/19/19 Pantoprazole Sodium [Protonix -] 40 mg PO DAILY #40 tablet.ec 05/19/19
--- NOTE | 2019-05-20 13:13 | SURG ---
Surgery Saw Straightener Note Saw Straightener: Josie Moore PA-C Date of Service: 05/17/19 Diagnosis: right knee OA Procedure: right TKA I was present for the entirety of the operative procedure. For further detail, please refer to operative report. Visit type - Case Type Case Type: Scheduled - Emergency Emergency Visit: No - New patient This patient is new to me today: Yes Date on this admission: 05/20/19
--- NOTE | 2019-05-20 17:33 | PATH ---
Surgical Pathology Report Patient Name: FELIX SNOW Med. Rec. #: [id number] /Age/Gender: 1960 (Age: 58) / F Account: [id number] Location: COUNT INCLUDES [facility] MED-SURG Taken: 05/17/2019 Received: 05/17/2019 Reported: 05/20/2019 Physicians: Dieter Garcia M.D. Specimen(s) Received RIGHT KNEE BONES Clinical History Right knee osteoarthritis Final Diagnosis RIGHT KNEE BONES, RESECTION: DEGENERATIVE JOINT DISEASE, RIGHT KNEE. Electronically Signed Clarisa Berry M.D. Gross Description Received in formalin labeled "right knee bones," is an 11.5 x 10.0 x 2.0 cm aggregate of multiple irregular portions of bone and soft tissue, consistent with knee bones. One of the portions displays a 3.0 cm in greatest dimension area of eburnation. The remaining articular surfaces are chauhan-brown and diffusely granular. The underlying trabecular bone is yellow and hard. Telephone Advice Nurse sections are submitted in one cassette, following decalcification. /05/19/2019 [facility]05/19/2019
== END 2019-05-19 15:18 | disposition home health service (06) | DRG 302 ==
LOC: FM/S 06:02
PROVIDERS: ADMIT Student in an Organized Health Care Education/Training Program; ATTEND Student in an Organized Health Care Education/Training Program
PROC: 8E0Y0CZ Robotic Assisted Procedure of Lower Extremity, Open Approach (ICD-10-PCS; 2019-05-17)
PROC: 0SRC0J9 Replacement of Right Knee Joint with Synthetic Substitute, Cemented, Open Approach (ICD-10-PCS; principal; 2019-05-17 13:29)
DX: M17.11 Unilateral primary osteoarthritis, right knee (principal); Z21 Asymptomatic human immunodeficiency virus [HIV] infection status; G62.9 Polyneuropathy, unspecified; E78.5 Hyperlipidemia, unspecified; F32.9 Major depressive disorder, single episode, unspecified
CPT/HCPCS: 36415; 73560-TC-RT-FY; 80048; 82962; 85027; 94760; 97116-GP; 97163-GP; J0131; J1100

== ENCOUNTER 2019-05-22 20:18 | Observation (INO) | payer OTHER ==
--- NOTE | 2019-05-22 21:09 | PDOC ---
History of Present Illness - General Chief Complaint: Pain, Acute Stated Complaint: R KNEE PAIN S/P SURGERY Time Seen by Provider: 05/22/19 20:36 - History of Present Illness Initial Comments: 05/22/19 21:49 58 year old woman with a history of HIV (on HAART), s/p total knee replacement on 05/17/19 and left rehab prematurely on 05/20/19 now presenting with R knee pain and possible fever. The patient reports that she lives alone and has been walking on her R knee. She was discharged Surgeon: Dr. Jose Garcias at [facility] GENERAL/CONSTITUTIONAL: No fever or chills. No weakness. CARDIOVASCULAR: No chest pain or shortness of breath RESPIRATORY: No cough, wheezing, or hemoptysis. GASTROINTESTINAL: + nausea, No vomiting, diarrhea or constipation. GENITOURINARY: No dysuria, frequency, or change in urination. MUSCULOSKELETAL: + joint or muscle swelling or pain. No neck or back pain. SKIN: No rash PE GENERAL: Awake, alert, and fully oriented, in no acute distress HEAD: No signs of trauma, normocephalic, atraumatic EYES: EOMI, sclera anicteric, conjunctiva clear ENT: oropharynx clear without exudates. Moist mucosa NECK: Normal ROM, supple LUNGS: No distress, speaks full sentences, clear to auscultation bilaterally HEART: Regular rate and rhythm, normal S1 and S2, no murmurs, rubs or gallops, peripheral pulses normal and equal bilaterally. ABDOMEN: Soft, nontender No guarding, no rebound. No masses EXTREMITIES : + R knee with clean dry wound dressing, + ecchymosis mid thigh to mid calf, warmth to touch NEUROLOGICAL: Cranial nerves II through XII grossly intact. Normal speech, no focal sensorimotor deficits SKIN: Warm, Dry, normal turgor, no rashes or lesions noted MDM DDX including but not limited to: cellulitis r/o osteo W/U: - cbc, cmp, xr TX: - pain control, abx ED Course: labs wnl patient admitted for pain control and possible cellulitis Therese Felder, PGY2 Emergency Medicine 05/23/19 06:15 Past History - Past Medical History Allergies/Adverse Reactions: Allergies Allergy/AdvReac Type Severity Reaction Status Date / Time abacavir sulfate Allergy Severe Rash Verified 05/10/19 11:54 [From [facility]] Home Medications: Ambulatory Orders Methadone HCl [Methadose] 140 mg PO DAILY 05/14/16 Polyethylene Glycol 3350 [Miralax 119 gm Btl -] 17 gm PO DAILY PRN #1 bottle 06/22 Albuterol Sulfate Inhaler - [Ventolin HFA Inhaler -] 1 - 2 inh PO QID PRN #1 inh 12/15/18 Atorvastatin Ca [Lipitor] 20 mg PO HS #30 tablet 03/17/19 Cholecalciferol (Vitamin D3) [Vitamin D3] 2,000 unit PO DAILY #30 capsule Docusate Sodium [Colace -] 100 mg PO TID PRN #90 capsule 03/17/19 Multivitamin,Ther and Minerals [Vitamin and Minerals] 1 each PO DAILY #30 tablet 03/17/19 Diphenhydramine HCl [Benadryl Capsule -] 1 cap PO Q8H PRN #15 capsule MDD 3 Clotrimazole [Clotrimazole AF] 1 applic TP BID #30 cream..g. 05/11/19 Darunavir/Cobicistat [Prezcobix 800 mg-150 mg Tablet] 1 each PO HS 05/17/19 Dolutegravir Sodium [Tivicay] 50 mg PO HS 05/17/19 Emtricitabine [Emtriva -] 200 mg PO HS 05/17/19 Zolpidem Tartrate [Ambien] 10 mg PO HS 05/17/19 Ascorbic Acid [Vitamin C -] 500 mg PO BID tablet 05/19/19 Aspirin [ASA -] 325 mg PO DAILY@0800 #40 tablet 05/19/19 Celecoxib [CeleBREX -] 200 mg PO BID #60 capsule 05/19/19 Cephalexin Monohydrate [Keflex -] 500 mg PO TID #42 capsule 05/19/19 Oxycodone HCl/Acetaminophen [Percocet 5-325 mg Tablet] 1 - 2 tab PO Q4H PRN #60 tablet MDD 10 05/19/19 Pantoprazole Sodium [Protonix -] 40 mg PO DAILY #40 tablet.ec 05/19/19 Anemia: Yes (TREATED IN THE PAST) Asthma: Yes (USES INHALER INTERMITTANTLY) Cancer: No Cardiac Disorders: Yes (CHEST PAIN-STRESS TEST 07/2016-ALSO RECENTLY) CVA: No COPD: No CHF: No Dementia: No (PRE-DIABETIC NO MEDS) Diabetes: No GI Disorders: Yes (REFLUX) Disorders: No HTN: No Hypercholesterolemia: Yes (DX 2017) Liver Disease: No Psychiatric Problems: Yes Seizures: No Thyroid Disease: No - Surgical History Abdominal Surgery: No Appendectomy: No Cardiac Surgery: No Cholecystectomy: No Lung Surgery: No Neurologic Surgery: No Orthopedic Surgery: No (2012 - rt knee ASPIRATION - had fluid removed) - Psycho Social/Smoking Cessation Hx Smoking Status: Yes Smoking History: Former smoker Have you smoked in the past 12 months: Yes Number of Cigarettes Smoked Daily: 0 If you are a former smoker, when did you quit?: 9 MONTHS AGO Cigars Per Day: 0 'Breaking Loose' booklet given: 03/01/14 Hx Alcohol Use: No Drug/Substance Use Hx: Yes (HX IVDA-NONE X 17 YEARS) Substance Use Type: 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
[2019-05-22] MEDS ORDERED: ACETAMINOPHEN 1000 MG/100 ML VIAL (NON FORMULARY) IVPB ONE (21:26)
[2019-05-22] MEDS ORDERED: CEFAZOLIN 1 GM in DEXTROSE 5%-WATER - 50 ML IVPB ONE (21:41)
[2019-05-22] MEDS ORDERED: CEFAZOLIN 1 GM/D5W 1 GM/50 ML BAG ONE (21:53)
[2019-05-22] MEDS ORDERED: ACETAMINOPHEN INJECTION 100 ML IVPB ONE (21:54)
[2019-05-22 21:55] LABS: BASO % 0.5 % (0-2.0); HEMATOCRIT 31.1 % (32.4-45.2); LYMPH % 19.9 % (8-40); MCH 27.8 pg (25.7-33.7); MCHC 32.2 g/dl (32.0-36.0); MEAN CELL VOLUME 86.1 fl (80-96); MEAN PLT VOLUME 8.4 fl (7.5-11.1); MONO % 8.4 % (3.8-10.2); NEUT % 70.2 % (42.8-82.8); PLATELET COUNT 264 K/MM3 (134-434); RBC 3.62 M/mm3 (3.60-5.2); RDW 15.1 % (11.6-15.6); WHITE BLOOD COUNT 8.9 K/mm3 (4.0-10.0)
[2019-05-22] MEDS: SODIUM CHLORIDE 1,000 ML IV SCH (22:03)
[2019-05-22 22:10] LABS: INR 1.01 (0.83-1.09); PROTHROMBIN TIME (PATIENT) 11.9 SEC (9.7-13.0)
[2019-05-22 22:25] LABS: ALBUMIN 3.4 g/dl (3.4-5.0); BILIRUBIN,TOTAL 0.8 mg/dL (0.2-1); BLOOD UREA NITROGEN 12.5 mg/dL (7-18); CALCIUM 9.2 mg/dL (8.5-10.1); POTASSIUM 4.5 mmol/L (3.5-5.1); TOT PROT 6.3 g/dl (6.4-8.2)
--- NOTE | 2019-05-23 00:44 | PDOC ---
Documentation entered by Brown De Jesus SCRIBE, acting as scribe for Kerline Ramon MD. Kerline Ramon MD: This documentation has been prepared by the Liza simpson Nirvannie, SCRIBE, under my direction and personally reviewed by me in its entirety. I confirm that the documentation accurately reflects all work, treatment, procedures, and medical decision making performed by me. Attending Attestation - Resident Resident Name: Therese Felder - ED Attending Attestation I have performed the following: I have examined & evaluated the patient, The case was reviewed & discussed with the resident, I agree w/resident's findings & plan - HPI HPI: 05/22/19 21:56 The patient is a 58 year old female, with a significant past medical history of HIV and recent total knee replacement (05/17, left rehab early 05/20), who presents to the emergency department with, right knee pain and subjective fever. She denies recent nausea, vomit, diarrhea or constipation. She denies recent dysuria, frequency, urgency or hematuria. She denies recent chest pain or shortness of breath. Allergies: Abacavir sulfate. Primary Care Physician: Dr. Mchugh - Physicial Exam PE: 05/23/19 00:42 Agree with resident exam. Pt has swollen, red, hot right knee Pt is afebrile Unable to ambulate due to pain. Pt has good pulses in all extremities Heart and lungs normal. - Medical Decision Making 05/22/19 21:42 Pt has pain in the right knee replacement; states that she left the rehab facility because she didn't like it there, and now realizes that she cannot care for herself, given her current post-op condition. States that she is able to ambulate, but with pain. She has been compliant with her abx and her HIV HAART meds. Pt needs pain management and help with ADLs. Pt's knee replacement was on Friday 5 days ago. Pt has warm joint; she may be failing outpatient treatment with keflex. 05/23/19 00:43 Pt will be admitted to Dr. Christianson I spoke to [facility], they will re-eval pateint for admission to rehab on Friday once they have another PHI report from us and once their delinquency prevention social worker is on premesis.
[2019-05-23 01:19] VITALS: BMI 34.5
--- NOTE | 2019-05-23 10:31 | EKG ---
Test Reason : Blood Pressure : / mmHG Vent. Rate : 067 BPM Atrial Rate : 067 BPM P-R Int : 138 ms QRS Dur : 080 ms QT Int : 408 ms P-R-T Axes : 051 009 018 degrees QTc Int : 431 ms POOR DATA QUALITY, INTERPRETATION MAY BE ADVERSELY AFFECTED NORMAL SINUS RHYTHM NORMAL ECG WHEN COMPARED WITH ECG OF 30-APR-2019 00:05, NO SIGNIFICANT CHANGE WAS FOUND Confirmed by MD LISA, RICKEY ([id number]) on 05/23/2019 10:30:52 AM Referred By: Confirmed By:RICKEY GONZALEZ MD
[2019-05-23] MEDS ORDERED: diphenhydrAMINE HCL 25 MG CAPSULE (FP) PO PRN (10:48)
[2019-05-23] MEDS ORDERED: POLYETHYLENE GLYCOL 3350 119 GM BTL PO PRN (10:48)
[2019-05-23] MEDS ORDERED: ZOLPIDEM TARTRATE 5 MG TABLET PO PRN (10:52)
[2019-05-23] MEDS ORDERED: METHADONE HCL PO SCH (11:00)
--- NOTE | 2019-05-23 11:03 | HP ---
Admitting History and Physical - Admission History of Present Illness: The patient is a 58 year old female, with a significant past medical history of HIV and recent total knee replacement (05/17, left rehab early 05/20), who presents to the emergency department with, right knee pain and subjective fever. She denies recent nausea, vomit, diarrhea or constipation. She denies recent dysuria, frequency, urgency or hematuria. She denies recent chest pain or shortness of breath. Allergies: Abacavir sulfate. Primary Care Physician: Dr. Mchugh Per ER note laminenet was at [facility] Pt has pain in the right knee replacement; states that she left the rehab facility because she didn't like it there, and now realizes that she cannot care for herself, given her current post-op condition. States that she is able to ambulate, but with pain. She has been compliant with her abx and her HIV HAART meds. Pt needs pain management and help with ADLs. Pt's knee replacement was on Friday 5 days ago. Pt has warm joint; she may be failing outpatient treatment with keflex. 05/23/19 00:43 Pt will be admitted to Dr. Christianson I spoke to [facility], they will re-eval pateint for admission to rehab on Friday once they have another PHI report from us and once their administrator social welfare is on premesis. - Past Medical History BUSINESS MANAGEMENT MANAGER: Yes: Peripheral Neuropathy. No: Alzheimer's, CVA, Dementia, Migraine, Multiple Sclerosis, Parkinson's, Seizure, Syncope, TIA, Vertigo, Other Cardiovascular: Yes: Hyperlipdemia. No: AFIB, Aneurysm, Aortic Insufficiency, Aortic Stenosis, CAD, CHF, Deep Vein Thrombosis, HTN, GA, Mitral Insufficiency, Mitral Stenosis, Murmur, Pulmonary Hypertension, Other ...: No Infectious Disease: Yes: HIV. No: AIDS, C-Diff, Herpes Zoster, MRSA, STD's, Tuberculosis, VREF, Other Psych: Yes: Depression. No: Addictions, Anxiety, Bipolar, Panic, Psychosis, Schizophrenia, Other - Past Surgical History Past Surgical History: Yes: None, Joint Replacement - Smoking History Smoking history: Former smoker Have you smoked in the past 12 months: Yes Aproximately how many cigarettes per day: 0 If you are a former smoker, when did you quit?: 9 MONTHS AGO - Alcohol/Substance Use Hx Alcohol Use: No - Social History Usual Living Arrangement: Yes: Alone ADL: Independent History of Recent Travel: No Home Medications - Allergies Allergies/Adverse Reactions: Allergies Allergy/AdvReac Type Severity Reaction Status Date / Time abacavir sulfate Allergy Severe Rash Verified 05/10/19 11:54 [From [facility]] - Home Medications Home Medications: Ambulatory Orders Methadone HCl [Methadose] 140 mg PO DAILY 05/14/16 Polyethylene Glycol 3350 [Miralax 119 gm Btl -] 17 gm PO DAILY PRN #1 bottle 06/22 Albuterol Sulfate Inhaler - [Ventolin HFA Inhaler -] 1 - 2 inh PO QID PRN #1 inh 12/15/18 Atorvastatin Ca [Lipitor] 20 mg PO HS #30 tablet 03/17/19 Cholecalciferol (Vitamin D3) [Vitamin D3] 2,000 unit PO DAILY #30 capsule Docusate Sodium [Colace -] 100 mg PO TID PRN #90 capsule 03/17/19 Multivitamin,Ther and Minerals [Vitamin and Minerals] 1 each PO DAILY #30 tablet 03/17/19 Diphenhydramine HCl [Benadryl Capsule -] 1 cap PO Q8H PRN #15 capsule MDD 3 Clotrimazole [Clotrimazole AF] 1 applic TP BID #30 cream..g. 05/11/19 Darunavir/Cobicistat [Prezcobix 800 mg-150 mg Tablet] 1 each PO HS 05/17/19 Dolutegravir Sodium [Tivicay] 50 mg PO HS 05/17/19 Emtricitabine [Emtriva -] 200 mg PO HS 05/17/19 Zolpidem Tartrate [Ambien] 10 mg PO HS 05/17/19 Ascorbic Acid [Vitamin C -] 500 mg PO BID tablet 05/19/19 Aspirin [ASA -] 325 mg PO DAILY@0800 #40 tablet 05/19/19 Celecoxib [CeleBREX -] 200 mg PO BID #60 capsule 05/19/19 Cephalexin Monohydrate [Keflex -] 500 mg PO TID #42 capsule 05/19/19 Oxycodone HCl/Acetaminophen [Percocet 5-325 mg Tablet] 1 - 2 tab PO Q4H PRN #60 tablet MDD 10 05/19/19 Pantoprazole Sodium [Protonix -] 40 mg PO DAILY #40 tablet.ec 05/19/19 Review of Systems - Review of Systems Constitutional: reports: No Symptoms, Other (pain to post op site) Eyes: reports: No Symptoms HENT: reports: No Symptoms Neck: reports: No Symptoms Cardiovascular: reports: No Symptoms Respiratory: reports: No Symptoms Gastrointestinal: reports: No Symptoms Genitourinary: reports: No Symptoms Breasts: reports: No Symptoms Reported Musculoskeletal: reports: No Symptoms Integumentary: reports: No Symptoms Neurological: reports: No Symptoms Endocrine: reports: No Symptoms Hematology/Lymphatic: reports: No Symptoms Psychiatric: reports: No Symptoms Physical Examination Vital Signs: Vital Signs Temperature 98.8 F 05/23/19 01:07 Pulse Rate 75 05/23/19 01:07 Respiratory Rate 18 05/23/19 01:07 Blood Pressure 124/92 05/23/19 01:07 O2 Sat by Pulse Oximetry (%) 97 05/23/19 01:07 Constitutional: Yes: Well Nourished, No Distress, Anxious Eyes: Yes: Conjunctiva Clear, EOM Intact HENT: Yes: Atraumatic, Normocephalic Neck: Yes: Supple, Trachea Midline Cardiovascular: Yes: Regular Rate and Rhythm Respiratory: Yes: Regular, CTA Bilaterally Gastrointestinal: Yes: Normal Bowel Sounds, Soft ...Rectal Exam: Yes: Deferred Renal/: Yes: WNL Musculoskeletal: Yes: Joint Stiffness, Joint Swelling, Other (s/p TKR right knee area swollen / appropriately echymotic / tender) Edema: No Edema: RLE: Trace (knee are swollen / echymotic / tender dressing in place midline ) Peripheral Pulses WNL: Yes Integumentary: Yes: WNL Wound/Incision: Yes: Clean/Dry, Dressing Dry and Intact Neurological: Yes: Alert, Oriented Labs: CBC, BMP 05/22/19 21:40 05/22/19 21:40 Problem List - Problems (1) Knee pain, right Code(s): M25.561 - PAIN IN RIGHT KNEE (2) BMI 33.0-33.9,adult Problems reviewed: Yes Code(s): Z68.33 - BODY MASS INDEX (BMI) 33.0-33.9, ADULT (3) Osteoarthritis of right knee Problems reviewed: Yes Code(s): M17.11 - UNILATERAL PRIMARY OSTEOARTHRITIS, RIGHT KNEE (4) HIV (human immunodeficiency virus infection) Problems reviewed: Yes Code(s): Z21 - ASYMPTOMATIC HUMAN IMMUNODEFICIENCY VIRUS INFECTION STATUS (5) Hyperlipidemia Problems reviewed: Yes Code(s): E78.5 - HYPERLIPIDEMIA, UNSPECIFIED Assessment/Plan 58 year old female, with PMH of HIV / HLD / Methadone maint/ and recent total knee replacement (05/17, left rehab early 05/20), presented to ED with right knee pain and unable to manage ADLs. She states that she left the rehab facility because she didn't like it there, and now realizes that she cannot care for herself, given her current post-op condition. # s/p TKR per post/op care instructions : ASA / Kelflex / elevate /do not remove dressing patient reluctant to return to [facility] -but she understands its unsafe for her to go home will try [facility] - # HIV continue home meds ID opinion - # Methadone maintenance continue
[2019-05-23] MEDS: ALBUTEROL SO4 0.083% IH SOL 2.5 MG/3 ML VIAL.NEB. NEB SCH ×3 (11:45→19:35)
--- NOTE | 2019-05-23 13:06 | PN ---
Progress Note (short form) - Note Progress Note: ID consult dictated imp/reccd 58 yo female s/p right TKA on 05/17, discharged on 05/19 to rehab on po keflex 500 tid for [address] Garcia (ortho) she left the SNF on and went home- lives alone and is unable to manage at home no fevers has been taking her meds hiv positive with cd4 1157, undectable viral load on tivicay, prexcobix and emtriva continue hiv meds no signs cellulitis- continue management of knee per ortho - she was on po keflex, no need for iv antibiotics for snf placement for PT and rehab can f/u at [facility] for HIV f/u with ortho for postop care d/w dr paniagua Problem List - Problems (1) HIV (human immunodeficiency virus infection) Code(s): Z21 - ASYMPTOMATIC HUMAN IMMUNODEFICIENCY VIRUS INFECTION STATUS (2) Status post right knee replacement Code(s): Z96.651 - PRESENCE OF RIGHT ARTIFICIAL KNEE JOINT
--- NOTE | 2019-05-23 13:20 | PN ---
Progress Note (short form) - Note Progress Note: patient seen and examined in medical michelle right leg elevated / in pain but states more comfortable than on admission Vital Signs Period Temp Pulse Resp BP Sys/Charles Pulse Ox Last 24 Hr 98.2 F-98.8 F 75-78 18-18 113-124/63-92 97-99 lungs clear bilat heart S1/S2 reg abd soft non tender ext no calf tenderness + 2 pulses right knee c/w post op TKR large ecchymotic area around knee / OR dressing in place / swelling / decreased ROM CBC, BMP 05/22/19 21:40 05/22/19 21:40 Active Medications Albuterol Sulfate (Ventolin 0.083% Nebulizer Soln -) 1 amp NEB RQID [facility] Last Admin: 05/23/19 11:45 Dose: 1 amp Ascorbic Acid (Vitamin C -) 500 mg PO BID [facility] Aspirin (Asa -) 325 mg PO DAILY@0800 [facility] Atorvastatin Calcium (Lipitor -) 20 mg PO HS [facility] Cephalexin HCl (Keflex -) 500 mg PO TID [facility] Diphenhydramine HCl (Benadryl -) 25 mg PO Q8H PRN PRN Reason: FOR ITCHING Docusate Sodium (Colace -) 100 mg PO TID PRN PRN Reason: CONSTIPATION Emtricitabine (Emtriva -) 200 mg PO HS [facility] Sodium Chloride (Normal Saline -) 1,000 mls @ 0 mls/hr IV ASDIR [facility] Last Admin: 05/22/19 22:03 Dose: 1,000 mls/hr Multivitamins/Minerals (Theragran-M) 1 each PO DAILY [facility] Non-Formulary Medication (Methadone Hcl [Methadose]) 140 mg PO DAILY [facility] Oxycodone HCl (Roxicodone -) 5 mg PO Q4H PRN PRN Reason: PAIN LEVEL 6-10 Pantoprazole Sodium (Protonix -) 40 mg PO DAILY [facility] Polyethylene Glycol (Miralax (For Daily Use) -) 17 gm PO DAILY PRN PRN Reason: CONSTIPATION Zolpidem Tartrate (Ambien -) 10 mg PO HS PRN PRN Reason: INSOMNIA 58 year old female, with PMH of HIV / HLD / Methadone maint/ and recent total knee replacement (05/17, left rehab early 05/20), presented to ED with right knee pain and unable to manage ADLs. She states that she left the rehab facility because she didn't like it there, and now realizes that she cannot care for herself, given her current post-op condition. # s/p TKR per post/op care instructions : ASA / Kelflex / elevate /do not remove dressing patient reluctant to return to [facility] -but she understands its unsafe for her to go home will try [facility] - # HIV continue home meds ID opinion - Case discussed with ID consult appreciated # Methadone maintenance continue Problem List - Problems (1) Knee pain, right Code(s): M25.561 - PAIN IN RIGHT KNEE (2) BMI 33.0-33.9,adult Code(s): Z68.33 - BODY MASS INDEX (BMI) 33.0-33.9, ADULT (3) Osteoarthritis of right knee Code(s): M17.11 - UNILATERAL PRIMARY OSTEOARTHRITIS, RIGHT KNEE (4) HIV (human immunodeficiency virus infection) Code(s): Z21 - ASYMPTOMATIC HUMAN IMMUNODEFICIENCY VIRUS INFECTION STATUS (5) Hyperlipidemia Code(s): E78.5 - HYPERLIPIDEMIA, UNSPECIFIED
[2019-05-23] MEDS: CEPHALEXIN MONOHYDRATE 500 MG CAPSULE (UD) PO SCH ×2 (14:58→22:22)
--- NOTE | 2019-05-23 21:10 | CONS ---
DATE OF CONSULTATION: 05/23/2019 This is a 58-year-old woman with a history of stable HIV. She is status post right total knee replacement on May [address] Garcia at [facility]. Discharge notes were reviewed. She was discharged on May 19 to rehab on p.o. Keflex 500 t.i.d. for 14 days per Orthopedics. She left the SNF on May 20 because she did not like it and went home. She lives alone and is unable to manage. She has had no fever but has had difficulty ambulating. She has been taking her medications. I am asked to see her regarding her HIV medications and to evaluate her leg. Her past medical history is notable for peripheral neuropathy, hyperlipidemia. She has a history of anemia in the past, asthma, hypercholesterolemia, GERD. She is HIV positive. She has hepatitis C treated in 1994. She has had blood transfusion years ago. Surgical history is notable for section in the past. ALLERGIES: She is allergic to ABACAVIR. Her medications as an outpatient include Ambien, Maalox, Protonix, Percocet, multivitamins, methadone, Emtriva, Tivicay and Prezcobix, Colace, Benadryl, vitamin D. She is on Keflex 500 t.i.d., Celebrex, atorvastatin, aspirin, vitamin C, and albuterol. REVIEW OF SYSTEMS: She denies any fevers, chills, nausea, vomiting, diarrhea. She is unable to ambulate and says she needs to go to rehab before she can live by herself again. PHYSICAL EXAMINATION: General: She is awake and alert. Vital Signs: Vital signs are stable. Her temperature, she is afebrile. HEENT: She is normocephalic. Her eyes are anicteric. Neck: Supple. Lungs: Clear to auscultation. Heart: Regular rate and rhythm. Abdomen: Soft, nontender. Extremities: She has extensive ecchymoses of the right leg up to her posterior thigh and in the medial aspect of her thigh and her calf. There is no erythema. The dressing is intact. Her labs are notable for a normal white count. Her T cells are 1157 from March with an undetectable viral load. Her temperature is 98.2, with a pulse of 75, blood pressure 122/63 with a respiratory rate of 18. Her labs are notable for a white count of 8.9, hemoglobin is 10, platelets are 264. Chemistries: BUN 12.5, creatinine 1, with normal LFTs. In summary, this is a 58-year-old woman admitted with stable HIV. I would continue her current medications, Prezcobix, Tivicay, and Emtriva. She has no signs of cellulitis. Would continue management. Per Orthopedics, she was on oral Keflex. I see no need for IV antibiotics. She is for SNF placement for PT and rehab, can follow up at the [facility] for HIV and with Orthopedics for postoperative care. This was all discussed with the primary doctor. LUZMARIA KESSLER M.D. [id number]
[2019-05-23] MEDS ORDERED: PT OWN MED DRAWER 7, Y5N ONE (21:34)
[2019-05-23] MEDS: SODIUM CHLORIDE 1,000 ML IV SCH (21:55)
[2019-05-23] MEDS: EMTRICITABINE 200 MG CAPSULE PO SCH (22:22)
[2019-05-23] MEDS: ATORVASTATIN CA 20 MG TABLET (FP) PO SCH (22:23)
[2019-05-23] MEDS: DOLUTEGRAVIR SODIUM 50 MG TABLET (NON-FORMULARY) PO SCH (22:23)
[2019-05-23] MEDS: DARUNAVIR 800 MG/COBICISTAT 150MG TABLET PO SCH (22:23)
[2019-05-23] MEDS: ASCORBIC ACID 500 MG TABLET (FP) PO SCH (22:23)
[2019-05-24] MEDS: ZOLPIDEM TARTRATE 5 MG TABLET PO PRN ×2 (00:36→22:12)
[2019-05-24] MEDS: CEPHALEXIN MONOHYDRATE 500 MG CAPSULE (UD) PO SCH ×3 (05:18→22:08)
[2019-05-24] MEDS: oxyCODONE HCL 5 MG TABLET PO PRN ×2 (05:21→22:09)
[2019-05-24] MEDS: ALBUTEROL SO4 0.083% IH SOL 2.5 MG/3 ML VIAL.NEB. NEB SCH ×4 (07:25→19:43)
[2019-05-24 08:50] LABS: HEMOGLOBIN 8.9 GM/dL (10.7-15.3); MCH 28.6 pg (25.7-33.7); MEAN CELL VOLUME 86.6 fl (80-96); MEAN PLT VOLUME 7.9 fl (7.5-11.1); PLATELET COUNT 254 K/MM3 (134-434); RBC 3.12 M/mm3 (3.60-5.2); RDW 15.3 % (11.6-15.6)
[2019-05-24 08:51] LABS: ALBUMIN 2.9 g/dl (3.4-5.0); BILIRUBIN,TOTAL 0.6 mg/dL (0.2-1); BLOOD UREA NITROGEN 11.5 mg/dL (7-18); CALCIUM 8.4 mg/dL (8.5-10.1); POTASSIUM 4.2 mmol/L (3.5-5.1); TOT PROT 5.4 g/dl (6.4-8.2)
[2019-05-24] MEDS ORDERED: METHADONE HCL 10 MG TABLET ONE (09:47)
[2019-05-24] MEDS ORDERED: METHADONE HCL 40 MG DISPERSABLE TABLET ONE (09:48)
[2019-05-24] MEDS: ASCORBIC ACID 500 MG TABLET (FP) PO SCH ×2 (09:54→22:08)
[2019-05-24] MEDS: PANTOPRAZOLE 40 MG TABLET (FP) PO SCH (09:54)
[2019-05-24] MEDS: ASPIRIN 325 MG TABLET PO SCH (09:54)
[2019-05-24] MEDS: MULTIVITAMINS THER W-MINERALS COMBO TABLET (FP) PO SCH (09:54)
[2019-05-24] MEDS: METHADONE 120 MG, METHADONE 20 MG PO SCH (09:54)
[2019-05-24] MEDS: DOCUSATE SODIUM 100 MG CAPSULE (FP) PO PRN (10:10)
--- NOTE | 2019-05-24 20:19 | PN ---
Progress Note (short form) - Note Progress Note: patient seen and examined in medical michelle right leg elevated / in pain but states more comfortable difficulty ambulating and transferring remains afebrile Vital Signs Period Temp Pulse Resp BP Sys/Charles Pulse Ox Last 24 Hr 98.2 F-98.8 F 76-79 18-20 106-122/52-73 98-100 neck supple heart S1/S2 reg Lungs clear bilat abd soft non tender ext no calf tenderness + 2 pulses right knee c/w post op TKR large ecchymotic area around knee / OR dressing in place / swelling / decreased ROM CBC, BMP 05/24/19 07:05 05/24/19 07:05 CBC, BMP 05/22/19 21:40 05/22/19 21:40 Microbiology 05/23/19 00:00 Blood - Peripheral Venous Blood Culture - Preliminary NO GROWTH OBTAINED AFTER 24 HOURS, INCUBATION TO CONTINUE FOR 4 DAYS. 05/23/19 00:00 Blood - Peripheral Venous Blood Culture - Preliminary NO GROWTH OBTAINED AFTER 24 HOURS, INCUBATION TO CONTINUE FOR 4 DAYS. Active Medications Albuterol Sulfate (Ventolin 0.083% Nebulizer Soln -) 1 amp NEB RQID [facility] Last Admin: 05/24/19 19:43 Dose: Not Given Ascorbic Acid (Vitamin C -) 500 mg PO BID [facility] Last Admin: 05/24/19 09:54 Dose: 500 mg Aspirin (Asa -) 325 mg PO DAILY@0800 [facility] Last Admin: 05/24/19 09:54 Dose: 325 mg Atorvastatin Calcium (Lipitor -) 20 mg PO [facility] Last Admin: 05/23/19 22:23 Dose: Not Given Cephalexin HCl (Keflex -) 500 mg PO TID [facility] Last Admin: 05/24/19 14:14 Dose: 500 mg Diphenhydramine HCl (Benadryl -) 25 mg PO Q8H PRN PRN Reason: FOR ITCHING Docusate Sodium (Colace -) 100 mg PO TID PRN PRN Reason: CONSTIPATION Last Admin: 05/24/19 10:10 Dose: 100 mg Emtricitabine (Emtriva -) 200 mg PO [facility] Last Admin: 05/23/19 22:22 Dose: Not Given Sodium Chloride (Normal Saline -) 1,000 mls @ 0 mls/hr IV ASDIR [facility] Last Admin: 05/23/19 21:55 Dose: 1,000 mls/hr Methadone HCl 120 mg/ (Methadone HCl 20 mg) 140 mg PO DAILY@0600 [facility] Last Admin: 05/24/19 09:54 Dose: 140 mg Multivitamins/Minerals (Theragran-M) 1 each PO DAILY [facility] Last Admin: 05/24/19 09:54 Dose: 1 each Oxycodone HCl (Roxicodone -) 5 mg PO Q4H PRN PRN Reason: PAIN LEVEL 6-10 Last Admin: 05/24/19 05:21 Dose: 5 mg Pantoprazole Sodium (Protonix -) 40 mg PO DAILY [facility] Last Admin: 05/24/19 09:54 Dose: 40 mg Polyethylene Glycol (Miralax (For Daily Use) -) 17 gm PO DAILY PRN PRN Reason: CONSTIPATION Last Admin: 05/24/19 10:10 Dose: 17 grams Zolpidem Tartrate (Ambien -) 10 mg PO HS PRN PRN Reason: INSOMNIA Last Admin: 05/24/19 00:36 Dose: 10 mg 58 year old female, with PMH of HIV / HLD / Methadone maint/ and recent total knee replacement (05/17, left rehab early 05/20), presented to ED with right knee pain and unable to manage ADLs. She states that she left the rehab facility because she didn't like it there, and now realizes that she cannot care for herself, given her current post-op condition. # s/p TKR per post/op care instructions : ASA / Kelflex / elevate /do not remove dressing patient reluctant to return to [facility] -but she understands its unsafe for her to go home awaiting STR acceptance # HIV continue home meds ID opinion - Case discussed with ID consult appreciated # Methadone maintenance continue Problem List - Problems (1) Knee pain, right Code(s): M25.561 - PAIN IN RIGHT KNEE (2) BMI 33.0-33.9,adult Code(s): Z68.33 - BODY MASS INDEX (BMI) 33.0-33.9, ADULT (3) Osteoarthritis of right knee Code(s): M17.11 - UNILATERAL PRIMARY OSTEOARTHRITIS, RIGHT KNEE (4) HIV (human immunodeficiency virus infection) Code(s): Z21 - ASYMPTOMATIC HUMAN IMMUNODEFICIENCY VIRUS INFECTION STATUS (5) Hyperlipidemia Code(s): E78.5 - HYPERLIPIDEMIA, UNSPECIFIED
[2019-05-24] MEDS: EMTRICITABINE 200 MG CAPSULE PO SCH (22:08)
[2019-05-24] MEDS: DARUNAVIR 800 MG/COBICISTAT 150MG TABLET PO SCH (22:08)
[2019-05-24] MEDS: DOLUTEGRAVIR SODIUM 50 MG TABLET (NON-FORMULARY) PO SCH (22:08)
[2019-05-24] MEDS: SODIUM CHLORIDE 1,000 ML IV SCH (22:08)
[2019-05-24] MEDS: ATORVASTATIN CA 20 MG TABLET (FP) PO SCH (22:08)
[2019-05-24] MEDS: FERROUS SO4/VIT C/FA 1 EACH TABLET.ER PO SCH (22:13)
[2019-05-25] MEDS ORDERED: METHADONE HCL 40 MG DISPERSABLE TABLET ONE (05:06)
[2019-05-25] MEDS ORDERED: METHADONE HCL 10 MG TABLET ONE (05:06)
[2019-05-25] MEDS: METHADONE 120 MG, METHADONE 20 MG PO SCH (06:45)
[2019-05-25] MEDS: CEPHALEXIN MONOHYDRATE 500 MG CAPSULE (UD) PO SCH ×2 (06:45→14:19)
[2019-05-25] MEDS: ALBUTEROL SO4 0.083% IH SOL 2.5 MG/3 ML VIAL.NEB. NEB SCH ×4 (08:00→20:30)
[2019-05-25] MEDS: ASPIRIN 325 MG TABLET PO SCH (08:55)
[2019-05-25 08:56] LABS: BASO % 0.3 % (0-2.0); EOS % 2.3 % (0-4.5); HEMATOCRIT 31.3 % (32.4-45.2); LYMPH % 25.2 % (8-40); MCH 28.1 pg (25.7-33.7); MCHC 31.8 g/dl (32.0-36.0); MEAN CELL VOLUME 88.4 fl (80-96); MONO % 11.7 % (3.8-10.2); NEUT % 60.5 % (42.8-82.8); PLATELET COUNT 304 K/MM3 (134-434); RBC 3.54 M/mm3 (3.60-5.2); RDW 15.7 % (11.6-15.6); WHITE BLOOD COUNT 9.9 K/mm3 (4.0-10.0)
[2019-05-25] MEDS: ASCORBIC ACID 500 MG TABLET (FP) PO SCH (09:00)
[2019-05-25] MEDS: DOCUSATE SODIUM 100 MG CAPSULE (FP) PO PRN (09:00)
[2019-05-25] MEDS: PANTOPRAZOLE 40 MG TABLET (FP) PO SCH (09:00)
[2019-05-25] MEDS: MULTIVITAMINS THER W-MINERALS COMBO TABLET (FP) PO SCH (09:00)
[2019-05-25] MEDS: FERROUS SO4/VIT C/FA 1 EACH TABLET.ER PO SCH ×2 (09:01→09:07)
[2019-05-25 09:27] LABS: BLOOD UREA NITROGEN 12.1 mg/dL (7-18); POTASSIUM 4.1 mmol/L (3.5-5.1)
[2019-05-25 09:56] VITALS: BP 104/64; PULSE 79; TEMP 98.9
--- NOTE | 2019-05-25 10:17 | DS ---
Physical Examination Vital Signs: Vital Signs Temperature 98.9 F 05/25/19 09:55 Pulse Rate 79 05/25/19 09:55 Respiratory Rate 20 05/25/19 09:55 Blood Pressure 104/64 05/25/19 09:55 O2 Sat by Pulse Oximetry (%) 95 05/25/19 09:53 Findings/Remarks: The patient is a 58 year old female, with a significant past medical history of HIV and recent total knee replacement (05/17, left rehab early 05/20), who presents to the emergency department with, right knee pain and subjective fever. She denies recent nausea, vomit, diarrhea or constipation. She denies recent dysuria, frequency, urgency or hematuria. She denies recent chest pain or shortness of breath. Allergies: Abacavir sulfate. Primary Care Physician: Dr. Mchugh / Dr. Christianson Per ER note patient was at [facility] Pt has pain in the right knee replacement; states that she left the rehab facility because she didn't like it there, and now realizes that she cannot care for herself, given her current post-op condition. States that she is able to ambulate, but with pain. She has been compliant with her abx and her HIV HAART meds. Pt needs pain management and help with ADLs. Pt's knee replacement was on Friday 5 days ago. Pt has warm joint; she may be failing outpatient treatment with keflex. 05/23/19 00:43 Pt will be admitted to Dr. Christianson Constitutional: Yes: Well Nourished, No Distress, Calm Eyes: Yes: Conjunctiva Clear, EOM Intact HENT: Yes: Atraumatic, Normocephalic Neck: Yes: Supple, Trachea Midline Cardiovascular: Yes: Regular Rate and Rhythm Respiratory: Yes: Regular, CTA Bilaterally Gastrointestinal: Yes: Normal Bowel Sounds, Soft ...Rectal Exam: Yes: Deferred Renal/: Yes: WNL Breast(s): Yes: WNL Musculoskeletal: Yes: WNL, Joint Swelling (right knee-- s/p TKR) Extremities: Yes: Erythema, Other (midline dressing in place / swelling ecchymosis post knee / inner thigh) Edema: No Peripheral Pulses WNL: Yes Integumentary: Yes: Erythema Wound/Incision: Yes: Dressing Dry and Intact Neurological: Yes: Alert, Oriented Psychiatric: Yes: Alert, Oriented Labs: CBC, BMP 05/25/19 08:00 05/25/19 08:00 Discharge Summary Problems reviewed: Yes Reason For Visit: KNEE PAIN Current Active Problems Knee pain (Acute) Status post right knee replacement (Acute) Status post right knee replacement (Acute) Condition: Stable - Instructions Diet, Activity, Other Instructions: Patient to transfer to [facility] to continue current management Keflex to be completed for 2 weeks per surgical indication PT / activity per STR surgical follow up within 2 weeks of surgery Referrals: Mikey Mchugh [Primary Care Provider] - Disposition: RESIDENTIAL FACILITY - Home Medications Comprehensive Discharge Medication List: Ambulatory Orders Methadone HCl [Methadose] 140 mg PO DAILY 05/14/16 Polyethylene Glycol 3350 [Miralax 119 gm Btl -] 17 gm PO DAILY PRN #1 bottle 06/22 Albuterol Sulfate Inhaler - [Ventolin HFA Inhaler -] 1 - 2 inh PO QID PRN #1 inh 12/15/18 Atorvastatin Ca [Lipitor] 20 mg PO HS #30 tablet 03/17/19 Cholecalciferol (Vitamin D3) [Vitamin D3] 2,000 unit PO DAILY #30 capsule Docusate Sodium [Colace -] 100 mg PO TID PRN #90 capsule 03/17/19 Multivitamin,Ther and Minerals [Vitamin and Minerals] 1 each PO DAILY #30 tablet 03/17/19 Diphenhydramine HCl [Benadryl Capsule -] 1 cap PO Q8H PRN #15 capsule MDD 3 Clotrimazole [Clotrimazole AF] 1 applic TP BID #30 cream..g. 05/11/19 Darunavir/Cobicistat [Prezcobix 800 mg-150 mg Tablet] 1 each PO HS 05/17/19 Dolutegravir Sodium [Tivicay] 50 mg PO HS 05/17/19 Emtricitabine [Emtriva -] 200 mg PO HS 05/17/19 Zolpidem Tartrate [Ambien] 10 mg PO HS 05/17/19 Ascorbic Acid [Vitamin C -] 500 mg PO BID tablet 05/19/19 Aspirin [ASA -] 325 mg PO DAILY@0800 #40 tablet 05/19/19 Celecoxib [CeleBREX -] 200 mg PO BID #60 capsule 05/19/19 Cephalexin Monohydrate [Keflex -] 500 mg PO TID #42 capsule 05/19/19 Oxycodone HCl/Acetaminophen [Percocet 5-325 mg Tablet] 1 - 2 tab PO Q4H PRN #60 tablet MDD 10 05/19/19 Pantoprazole Sodium [Protonix -] 40 mg PO DAILY #40 tablet.ec 05/19/19
[2019-05-25 10:20] LABS: MACROCYTOSIS 0; PLATELET ESTIMATE NORMAL
[2019-05-25] MEDS: oxyCODONE HCL 5 MG TABLET PO PRN (12:55)
== END 2019-05-25 21:05 ==
LOC: JER 20:18 → JERBED 23:51 → UNDOADMOB 23:51 → J6S 05-23 00:43 → JERBED 05-23 00:43 → OBSVTOIN 05-23 10:52 → INTOOBSV 05-23 10:52 → J6S 05-24 08:17 → JERBED 05-24 13:34
PROVIDERS: ADMIT Family Medicine; ATTEND Family Medicine
PROC: 3E03329 Introduction of Other Anti-infective into Peripheral Vein, Percutaneous Approach (ICD-10-PCS; principal; 2019-05-24)
PROC: 3E033NZ Introduction of Analgesics, Hypnotics, Sedatives into Peripheral Vein, Percutaneous Approach (ICD-10-PCS; 2019-05-24)
PROC: 3E0F7GC Introduction of Other Therapeutic Substance into Respiratory Tract, Via Natural or Artificial Opening (ICD-10-PCS; 2019-05-24)
DX: M25.561 Pain in right knee (principal); Z21 Asymptomatic human immunodeficiency virus [HIV] infection status; J45.909 Unspecified asthma, uncomplicated; R73.03 Prediabetes; K21.9 Gastro-esophageal reflux disease without esophagitis; E78.5 Hyperlipidemia, unspecified; G62.9 Polyneuropathy, unspecified; M17.11 Unilateral primary osteoarthritis, right knee; R23.3 Spontaneous ecchymoses; Z88.2 Allergy status to sulfonamides; Z87.891 Personal history of nicotine dependence; Z96.651 Presence of right artificial knee joint; Z86.19 Personal history of other infectious and parasitic diseases; Z68.34 Body mass index [BMI] 34.0-34.9, adult
CPT/HCPCS: 36415; 73560-TC-RT-FY; 80048; 80053; 85025; 85027; 85610; 85730; 87040; 93005; 93010; 94640; 96365; 96375; 97116-GP; 97161-GP; 99283-25; G0378; J0131; J7030

== ENCOUNTER 2019-06-13 14:36 | Inpatient (IN) | payer OTHER ==
--- NOTE | 2019-06-13 15:04 | PDOC ---
History of Present Illness - General Chief Complaint: Edema Stated Complaint: ankle pain and swelling Time Seen by Provider: 06/13/19 14:56 History Source: Patient Exam Limitations: No Limitations - History of Present Illness Initial Comments: 59 year old female with PMH HIV (on HAART, last CD4 >1000, undetectable viral load), HLD, GERD, treated HCV, prior IVDA (x17 years ago) on methadone maintenence, asthma, recent total knee replacement presented to ED for right ankle pain/swelling x2 days associated with increased warmth and redness to the entire RLE below the knee. Pt reported she had her procedure performed by Dr. Merritt ~2 weeks ago, the procedure went well, and a week later she developed subjective fever and right knee pain, she was seen by PCP and admitted, given PO Keflex per ID and discharged. Pt denied chest pain, shortness of breath, fever, vomiting, lightheadedness. ORTHO: FABY MERRITT PCP: OTTO/NALINI Past History - Past Medical History Allergies/Adverse Reactions: Allergies Allergy/AdvReac Type Severity Reaction Status Date / Time abacavir sulfate Allergy Severe Rash Verified 06/13/19 14:54 [From Alokagen] Home Medications: Ambulatory Orders Methadone HCl [Methadose] 140 mg PO DAILY 05/14/16 Polyethylene Glycol 3350 [Miralax 119 gm Btl -] 17 gm PO DAILY PRN #1 bottle 06/22 Albuterol Sulfate Inhaler - [Ventolin HFA Inhaler -] 1 - 2 inh PO QID PRN #1 inh 12/15/18 Atorvastatin Ca [Lipitor] 20 mg PO HS #30 tablet 03/17/19 Cholecalciferol (Vitamin D3) [Vitamin D3] 2,000 unit PO DAILY #30 capsule Docusate Sodium [Colace -] 100 mg PO TID PRN #90 capsule 03/17/19 Multivitamin,Ther and Minerals [Vitamin and Minerals] 1 each PO DAILY #30 tablet 03/17/19 Diphenhydramine HCl [Benadryl Capsule -] 1 cap PO Q8H PRN #15 capsule MDD 3 Darunavir/Cobicistat [Prezcobix 800 mg-150 mg Tablet] 1 each PO HS 05/17/19 Dolutegravir Sodium [Tivicay] 50 mg PO HS 05/17/19 Emtricitabine [Emtriva -] 200 mg PO HS 05/17/19 Zolpidem Tartrate [Ambien] 10 mg PO HS 05/17/19 Ascorbic Acid [Vitamin C -] 500 mg PO BID tablet 05/19/19 Aspirin [ASA -] 325 mg PO DAILY@0800 #40 tablet 05/19/19 Celecoxib [CeleBREX -] 200 mg PO BID #60 capsule 05/19/19 Oxycodone HCl/Acetaminophen [Percocet 5-325 mg Tablet] 1 - 2 tab PO Q4H PRN #60 tablet MDD 10 05/19/19 Pantoprazole Sodium [Protonix -] 40 mg PO DAILY #40 tablet.ec 05/19/19 Albuterol 0.083% Nebulizer Nanette [Ventolin 0.083% Nebulizer Soln -] 1 amp NEB RQID amp 05/25/19 Ferrous Sulfate/Vit C/FA [Folitab 500 Caplet -] 1 each PO DAILY tablet.er 05/25 oxyCODONE HCL [Roxicodone -] 5 mg PO Q4H PRN 5 Days #20 tablet MDD 20 mg Multivitamin [Multiple Vitamins] 1 each PO DAILY #30 tablet 06/01/19 Polyethylene Glycol 3350 [Miralax 119 gm Btl -] 17 gm PO DAILY bottle 06/16/19 Cardiac Disorders: Yes (CHEST PAIN-STRESS TEST 07/2016-ALSO RECENTLY) - Surgical History Orthopedic Surgery: No (2012 - rt knee ASPIRATION - had fluid removed) - Psycho Social/Smoking Cessation Hx Smoking Status: Yes Smoking History: Unknown if ever smoked Have you smoked in the past 12 months: No Number of Cigarettes Smoked Daily: 0 If you are a former smoker, when did you quit?: 9 MONTHS AGO Cigars Per Day: 0 Information on smoking cessation initiated: No 'Breaking Loose' booklet given: 03/01/14 Hx Alcohol Use: No Drug/Substance Use Hx: No Substance Use Type: Heroin Hx Substance Use Treatment: Yes (ON METHADONE-2001) Review of Systems - Review of Systems Able to Perform ROS?: Yes Comments:: ROS General: denied fever, chills, generalized weakness. HEENT: denied sore throat, rhinorrhea, ear pain. Cardiovascular: denied chest pain, palpitations, syncope, diaphoresis. Respiratory: denied shortness of breath, cough, sputum production, hemoptysis. Gastrointestinal: denied abdominal pain, nausea, vomiting, diarrhea, constipation, blood in stool. Genitourinary: denied dysuria, increased urinary frequency, hematuria, urinary incontinence, flank pain. Back: denied back pain. Musculoskeletal: admitted to joint pain, joint swelling. Neurological: denied headache, dizziness, numbness, tingling, weakness. Integumentary: denied rash, laceration, abrasion. Hematologic/Lymphatic: denied bruising or bleeding. PE Constitutional: Well-nourished, Well-developed, appearing stated age. HEENT: head is normocephalic, atraumatic. EOMI. PERRLA. Neck: supple. Full ROM. Cardiovascular: regular heart rhythm. no murmurs. no pericardial friction rub. Respiratory: clear to auscultation bilaterally. no crackles, rhonchi or wheezing. no stridor. Gastrointestinal: soft, nontender. normal bowel sounds. no rebound, guarding, masses. Extremities: peripheral pulses intact. right knee swollen, erythematous, warm, without tenderness to palpation, healing linear vertical surgical scar. warmth to entire RLE below the knee, mild swelling, increased shinyness. mild tenderness to palpation of right medial malleolus. no tenderness to palpation of right lateeral malleolus, navicular area, base of 5th MT. no ankle swelling. 2+ DSP bilaterally. Neurological: CN 2-12 grossly intact. moves all four extremities. Psych: awake, alert, oriented x3. follows commands. answers questions appropriately. *Physical Exam - Vital Signs Last Vital Signs Temp Pulse Resp BP Pulse Ox 98.0 F 82 16 128/87 100 06/13/19 14:49 06/13/19 14:49 06/13/19 14:49 06/13/19 14:49 06/13/19 14:49 ED Treatment Course - LABORATORY CBC & Chemistry Diagram: 06/16/19 07:00 06/16/19 07:00 Medical Decision Making - Medical Decision Making 59 year old female with above PMH presented to ED for right ankle pain/swelling x2 days. Clinically pt appears to have cellulitis. Initial Vital Signs Temp Pulse Resp BP Pulse Ox 98.0 F 82 16 128/87 100 06/13/19 14:49 06/13/19 14:49 06/13/19 14:49 06/13/19 14:49 06/13/19 14:49 Afebrile. No tachycardia. no tachypnea. No hypotension. No hypoxia on room air. Labs ordered: CBC, CMP, ESR/CRP, coags, T&S, blood culture Imaging ordered: Duplex venous RLE, XR of right knee/tib/fib/ankle, CXR Medications ordered: tylenol IV, normal saline bolus 1000 cc once EKG performed at 1537: rate 71, regular rhythm, normal axis, normal intervals, no acute ST changes. CBC WBC 5.4 K/mm3 (4.0-10.0) 06/13/19 15:11 RBC 4.13 M/mm3 (3.60-5.2) 06/13/19 15:11 Hgb 11.4 GM/dL (10.7-15.3) 06/13/19 15:11 Hct 36.0 % (32.4-45.2) D 06/13/19 15:11 MCV 87.2 fl (80-96) 06/13/19 15:11 MCH 27.7 pg (25.7-33.7) 06/13/19 15:11 MCHC 31.8 g/dl (32.0-36.0) L 06/13/19 15:11 RDW 17.1 % (11.6-15.6) H 06/13/19 15:11 Plt Count 350 K/MM3 (134-434) 06/13/19 15:11 MPV 7.7 fl (7.5-11.1) 06/13/19 15:11 Absolute Neuts (auto) 2.9 K/mm3 (1.5-8.0) 06/13/19 15:11 Neutrophils % 53.0 % (42.8-82.8) 06/13/19 15:11 Lymphocytes % 30.2 % (8-40) 06/13/19 15:11 Monocytes % 12.6 % (3.8-10.2) H 06/13/19 15:11 Eosinophils % 3.3 % (0-4.5) 06/13/19 15:11 Basophils % 0.9 % (0-2.0) 06/13/19 15:11 Nucleated RBC % 0 % (0-0) 06/13/19 15:11 ESR 13 mm/hr (0-30) 06/13/19 15:11 No leukocytosis. No anemia. CMP Sodium 137 mmol/L (136-145) 06/13/19 15:11 Potassium 4.1 mmol/L (3.5-5.1) 06/13/19 15:11 Chloride 103 mmol/L (98-107) 06/13/19 15:11 Carbon Dioxide 28 mmol/L (21-32) 06/13/19 15:11 Anion Gap 6 MMOL/L (8-16) L 06/13/19 15:11 BUN 21.1 mg/dL (7-18) H 06/13/19 15:11 Creatinine 1.2 mg/dL (0.55-1.3) 06/13/19 15:11 Est GFR (CKD-EPI)AfAm 56.49 06/13/19 15:11 Est GFR (CKD-EPI)NonAf 48.74 06/13/19 15:11 Random Glucose 79 mg/dL (74-106) 06/13/19 15:11 Lactic Acid 0.6 mmol/L (0.4-2.0) 06/13/19 15:11 Calcium 9.3 mg/dL (8.5-10.1) 06/13/19 15:11 Total Bilirubin 0.4 mg/dL (0.2-1) 06/13/19 15:11 AST 28 U/L (15-37) 06/13/19 15:11 ALT 28 U/L (13-61) 06/13/19 15:11 Alkaline Phosphatase 121 U/L (45-117) H 06/13/19 15:11 C-Reactive Protein 1.4 MG/DL (0.00-0.3) H 06/13/19 15:11 Total Protein 7.0 g/dl (6.4-8.2) 06/13/19 15:11 Albumin 3.9 g/dl (3.4-5.0) 06/13/19 15:11 No electrolyte abnormalities. No AYAZ. Elevated CRP, normal ESR. XR my and Dr. Owusu's view shows no acute ankle/tib/fib/knee fracture, right TKR appears in satisfactory position. -Pending official reports Pt reported no pain relief with IV Tylenol. Medication ordered: Morphine 4 mg IV once 06/13/19 18:48 RLE Duplex negative for DVT. Pt is immunocompromised, has failed outpatient antibiotics (Keflex) and should be admitted for IV antibiotics for cellulitis. Medications ordered: Vancomycin and Zosyn Dr. Merritt, Ortho, paged. 06/13/19 19:15 Dr. Merritt given sign out, he agrees with plan for admission. 06/13/19 19:27 Sign out given to Dr. Christianson. Pt to be admitted. Pt escorted via wheel chair by me to phone for her to call her daughter 2/2 not bringing cane to ED today. 06/13/19 20:22 Pt eloped with IV. PD called by Nursing F[facility]. 06/13/19 21:00 Pt returned. Pt reported she left her cane "in the bathroom" to RN and that is where she has been. Discharge - Discharge Information Problems reviewed: Yes Clinical Impression/Diagnosis: Cellulitis, History of immunocompromised state, Total knee replacement status Condition: Stable - Admission Yes - Follow up/Referral - Patient Discharge Instructions - Post Discharge Activity
[2019-06-13] MEDS ORDERED: SODIUM CHLORIDE 1,000 ML IV STA (15:05)
[2019-06-13] MEDS ORDERED: ACETAMINOPHEN 1000 MG/100 ML VIAL (NON FORMULARY) IVPB ONE (15:05)
--- NOTE | 2019-06-13 15:05 | PDOC ---
Attending Attestation - Resident Resident Name: Petra Fontanez - ED Attending Attestation I have performed the following: I have examined & evaluated the patient, The case was reviewed & discussed with the resident, I agree w/resident's findings & plan - HPI HPI: 06/13/19 15:59 59 year old female with PMH HIV (on HAART, last CD4 >1000, undetectable viral load), HLD, GERD, treated HCV, prior IVDA (x17 years ago) on methadone maintenence, asthma, recent total knee replacement presented to ED for right ankle pain/swelling x2 days associated with increased warmth and redness to the entire RLE below the knee. Pt reported she had her procedure performed by Dr. Garcia ~2 weeks ago in May, no complications, 1 week subsequently developed subjective fever/rt knee pain, still completing course of Keflex per ID. 06/13/19 22:14 - Physicial Exam PE: 06/13/19 15:05 Agree with the resident's HPI and PE as documented in the electronic medical record. NAD, well appearing, EOMI, PERRL, nl conjunctiva, anicteric; neck supple. lungs clear, RRR, abdomen soft nontender. no rebound, guarding. Back nontender. SANTANA x4, no focal neuro deficits. No peripheral edema. normal color for ethnicity , WWP. RLE with anterior knee scar, +diffuse RLE erythema, warmth and tenderness. 06/13/19 19:03 - Medical Decision Making 06/13/19 15:40 Vital Signs Temp Pulse Resp BP Pulse Ox 98.0 F 82 16 128/87 100 06/13/19 14:49 06/13/19 14:49 06/13/19 14:49 06/13/19 14:49 06/13/19 14:49 DDX, DVT, arthritis, cellulitis, nec fasciitis, osteomyelitis Xray duplex labs and lytes wnl X-ray with the hardware in place, no evidence of fracture or dislocation. Duplex is negative for DVT ortho cs with Dr Garcia. r/o septic arthritis, failed outpatient abx, now with developing RLE cellulitis. IV abx, zosyn and vancomycin, given immunocompromised state. admit to Dr Peace service for cellulitis, failed OP abx. recent surgery, high risk of infection. 06/13/19 19:04 06/13/19 22:14 Heart Score/ECG Review #1 ECG reviewed & interpreted by me at: 15:35 General ECG Interpretation: Sinus Rhythm, Normal Rate, Normal Intervals 06/13/19 15:39 EKG with NSR at 71 bpm, nonspecific T wave abnormalities, no elevations, narrow QRS.
[2019-06-13] MEDS ORDERED: ACETAMINOPHEN INJECTION 100 ML IVPB ONE (15:12)
[2019-06-13 15:38] LABS: BASO % 0.9 % (0-2.0); EOS % 3.3 % (0-4.5); HEMOGLOBIN 11.4 GM/dL (10.7-15.3); LYMPH % 30.2 % (8-40); MCH 27.7 pg (25.7-33.7); MCHC 31.8 g/dl (32.0-36.0); MEAN CELL VOLUME 87.2 fl (80-96); MEAN PLT VOLUME 7.7 fl (7.5-11.1); MONO % 12.6 % (3.8-10.2); PLATELET COUNT 350 K/MM3 (134-434); RBC 4.13 M/mm3 (3.60-5.2); RDW 17.1 % (11.6-15.6); WHITE BLOOD COUNT 5.4 K/mm3 (4.0-10.0)
[2019-06-13 15:48] LABS: INR 1.04 (0.83-1.09); PROTHROMBIN TIME (PATIENT) 12.3 SEC (9.7-13.0)
[2019-06-13 16:00] LABS: ALBUMIN 3.9 g/dl (3.4-5.0); BILIRUBIN,TOTAL 0.4 mg/dL (0.2-1); BLOOD UREA NITROGEN 21.1 mg/dL (7-18); CALCIUM 9.3 mg/dL (8.5-10.1); CREATININE 1.2 mg/dL (0.55-1.3); POTASSIUM 4.1 mmol/L (3.5-5.1)
[2019-06-13] MEDS ORDERED: morphine CARPU-JECT 4 MG/1 ML DISP.SYRIN IVPUSH ONE (17:39)
[2019-06-13] MEDS ORDERED: morphine SULFATE 4 MG/ML VIAL ONE (17:47)
[2019-06-13] MEDS ORDERED: VANCOMYCIN 1,000 MG in DEXTROSE 5%-WATER - 250 ML IVPB ONE ×2 (18:30→21:18)
[2019-06-13] MEDS ORDERED: PIPERACILLIN/TAZOB 3.375 GM 3.375 GM in DEXTROSE 5%-WATER - 50 ML IVPB ONE (18:33)
[2019-06-13] MEDS ORDERED: PIPERACILLIN/TAZOB 3.375 GM 3.375 GM/50 ML BAG IVPB ONE (18:54)
--- NOTE | 2019-06-13 20:03 | HP ---
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 Pt reported she had her procedure performed by Dr. Garcia ~2 weeks ago in May, no complications, patient completed 2 weeks of keflex as out patient.-- per post op instructions. History Source: Patient, Medical Record Limitations to Obtaining History: No Limitations - Past Medical History [employer]INEER: Yes: Peripheral Neuropathy. No: Alzheimer's, CVA, Dementia, Migraine, Multiple Sclerosis, Parkinson's, Seizure, Syncope, TIA, Vertigo, Other Cardiovascular: Yes: Hyperlipdemia. No: AFIB, Aneurysm, Aortic Insufficiency, Aortic Stenosis, CAD, CHF, Deep Vein Thrombosis, HTN, [place], Mitral Insufficiency, Mitral Stenosis, Murmur, Pulmonary Hypertension, Other Gastrointestinal: Yes: Constipation Reproductive: Yes: Postmenopausal Infectious Disease: Yes: HIV. No: AIDS, C-Diff, Herpes Zoster, MRSA, STD's, Tuberculosis, VREF, Other Psych: Yes: Depression. No: Addictions, Anxiety, Bipolar, Panic, Psychosis, Schizophrenia, Other - Past Surgical History Past Surgical History: Yes: None, Joint Replacement ( BY Dr Garcia) - Smoking History Smoking history: Unknown if ever smoked Have you smoked in the past 12 months: No Aproximately how many cigarettes per day: 0 If you are a former smoker, when did you quit?: 9 MONTHS AGO - Alcohol/Substance Use Hx Alcohol Use: No - Social History Usual Living Arrangement: Yes: Alone ADL: Independent History of Recent Travel: No Home Medications - Allergies Allergies/Adverse Reactions: Allergies Allergy/AdvReac Type Severity Reaction Status Date / Time abacavir sulfate Allergy Severe Rash Verified 06/13/19 14:54 [From Ziagen] - Home Medications Home Medications: Ambulatory Orders Methadone HCl [Methadose] 140 mg PO DAILY 05/14/16 Polyethylene Glycol 3350 [Miralax 119 gm Btl -] 17 gm PO DAILY PRN #1 bottle 06/22 Albuterol Sulfate Inhaler - [Ventolin HFA Inhaler -] 1 - 2 inh PO QID PRN #1 inh 12/15/18 Atorvastatin Ca [Lipitor] 20 mg PO HS #30 tablet 03/17/19 Cholecalciferol (Vitamin D3) [Vitamin D3] 2,000 unit PO DAILY #30 capsule Docusate Sodium [Colace -] 100 mg PO TID PRN #90 capsule 03/17/19 Multivitamin,Ther and Minerals [Vitamin and Minerals] 1 each PO DAILY #30 tablet 03/17/19 Diphenhydramine HCl [Benadryl Capsule -] 1 cap PO Q8H PRN #15 capsule MDD 3 Clotrimazole [Clotrimazole AF] 1 applic TP BID #30 cream..g. 05/11/19 Darunavir/Cobicistat [Prezcobix 800 mg-150 mg Tablet] 1 each PO HS 05/17/19 Dolutegravir Sodium [Tivicay] 50 mg PO HS 05/17/19 Emtricitabine [Emtriva -] 200 mg PO HS 05/17/19 Zolpidem Tartrate [Ambien] 10 mg PO HS 05/17/19 Ascorbic Acid [Vitamin C -] 500 mg PO BID tablet 05/19/19 Aspirin [ASA -] 325 mg PO DAILY@0800 #40 tablet 05/19/19 Celecoxib [CeleBREX -] 200 mg PO BID #60 capsule 05/19/19 Cephalexin Monohydrate [Keflex -] 500 mg PO TID #42 capsule 05/19/19 Oxycodone HCl/Acetaminophen [Percocet 5-325 mg Tablet] 1 - 2 tab PO Q4H PRN #60 tablet MDD 10 05/19/19 Pantoprazole Sodium [Protonix -] 40 mg PO DAILY #40 tablet.ec 05/19/19 Albuterol 0.083% Nebulizer Nanette [Ventolin 0.083% Nebulizer Soln -] 1 amp NEB RQID amp 05/25/19 Cephalexin Monohydrate [Keflex -] 500 mg PO TID capsule 05/25/19 Ferrous Sulfate/Vit C/FA [Folitab 500 Caplet -] 1 each PO DAILY tablet.er 05/25 oxyCODONE HCL [Roxicodone -] 5 mg PO Q4H PRN 5 Days #20 tablet MDD 20 mg Multivitamin [Multiple Vitamins] 1 each PO DAILY #30 tablet 06/01/19 Physical Examination Vital Signs: Vital Signs Temperature 98.5 F 06/13/19 17:59 Pulse Rate 67 06/13/19 17:59 Respiratory Rate 18 06/13/19 17:59 Blood Pressure 116/75 06/13/19 17:59 O2 Sat by Pulse Oximetry (%) 99 06/13/19 17:59 Constitutional: Yes: Well Nourished, No Distress, Anxious Eyes: Yes: Conjunctiva Clear, EOM Intact HENT: Yes: Atraumatic, Normocephalic Neck: Yes: Supple, Trachea Midline Cardiovascular: Yes: Regular Rate and Rhythm Respiratory: Yes: Regular, CTA Bilaterally Gastrointestinal: Yes: Normal Bowel Sounds, Soft, Abdomen, Obese ...Rectal Exam: Yes: Deferred Renal/: Yes: WNL Breast(s): Yes: WNL Musculoskeletal: Yes: WNL Extremities: Yes: Other (swollen right knee / no significant erythema / suture line healed. RT ankle: ++ tenderness to right ankle / no deformity appreciated ( denies trauma )). No: Cool, Cyanosis, Deformity, External Rotation, Internal Rotation Edema: No Peripheral Pulses WNL: Yes Integumentary: Yes: WNL Wound/Incision: Yes: Well Approximated, Open to air, Sutures Removed Neurological: Yes: Alert, Oriented ...Motor Strength: WNL Psychiatric: Yes: Alert, Oriented Labs: CBC, BMP 06/13/19 15:11 06/13/19 15:11 Problem List - Problems (1) Right ankle pain Code(s): M25.571 - PAIN IN RIGHT ANKLE AND JOINTS OF RIGHT FOOT (2) Total knee replacement status Code(s): Z96.659 - PRESENCE OF UNSPECIFIED ARTIFICIAL KNEE JOINT (3) History of immunocompromised state Code(s): Z86.2 - PRSNL HISTORY OF DIS OF THE BLD/BLD-FORM ORG/IMMUN MECHNSM (4) Allergic rhinitis Code(s): J30.9 - ALLERGIC RHINITIS, UNSPECIFIED (5) Status post right knee replacement Code(s): Z96.651 - PRESENCE OF RIGHT ARTIFICIAL KNEE JOINT
[2019-06-13] MEDS ORDERED: VANCOMYCIN 1 GRAM (PRE-DOCKED) 1,000 MG/250 ML BAG IVPB ONE (20:17)
[2019-06-13] MEDS ORDERED: diphenhydrAMINE HCL 25 MG CAPSULE (FP) PO PRN (20:20)
[2019-06-13] MEDS ORDERED: DOCUSATE SODIUM 100 MG CAPSULE (FP) PO PRN (20:20)
[2019-06-13] MEDS: CELECOXIB 200 MG CAPSULE PO SCH (23:02)
[2019-06-13] MEDS: EMTRICITABINE 200 MG CAPSULE PO SCH (23:02)
[2019-06-13] MEDS: ASCORBIC ACID 500 MG TABLET (FP) PO SCH (23:02)
[2019-06-13] MEDS: ATORVASTATIN CA 20 MG TABLET (FP) PO SCH (23:02)
[2019-06-13] MEDS: DARUNAVIR 800 MG/COBICISTAT 150MG TABLET PO SCH (23:02)
[2019-06-13] MEDS: DOLUTEGRAVIR SODIUM 50 MG TABLET (NON-FORMULARY) PO SCH (23:02)
[2019-06-14] MEDS ORDERED: oxyCODONE HCL 5 MG TABLET ONE (00:25)
[2019-06-14] MEDS: oxyCODONE HCL 5 MG TABLET PO PRN ×3 (00:33→18:08)
[2019-06-14 04:09] VITALS: BMI 31.4
[2019-06-14 07:39] LABS: HEMATOCRIT 33.4 % (32.4-45.2); HEMOGLOBIN 10.9 GM/dL (10.7-15.3); MCH 28.2 pg (25.7-33.7); MCHC 32.6 g/dl (32.0-36.0); MEAN CELL VOLUME 86.7 fl (80-96); MEAN PLT VOLUME 7.3 fl (7.5-11.1); PLATELET COUNT 300 K/MM3 (134-434); RBC 3.85 M/mm3 (3.60-5.2); RDW 16.8 % (11.6-15.6); WHITE BLOOD COUNT 3.6 K/mm3 (4.0-10.0)
[2019-06-14 08:03] LABS: BLOOD UREA NITROGEN 15.6 mg/dL (7-18); CALCIUM 9.3 mg/dL (8.5-10.1); CREATININE 1.2 mg/dL (0.55-1.3); MAGNESIUM 2.5 mg/dL (1.8-2.4); POTASSIUM 4.3 mmol/L (3.5-5.1)
[2019-06-14] MEDS: ASPIRIN 325 MG TABLET PO SCH (08:12)
--- NOTE | 2019-06-14 08:35 | PN ---
Progress Note (short form) - Note Progress Note: see and examined in room has remained afebrile Vital Signs Period Temp Pulse Resp BP Sys/Charles Pulse Ox Last 24 Hr 98.0 F-98.5 F 64-93 16-20 103-132/54-87 96-100 neck supple heart s1/S2 lungs clear bilat abd soft non tender ext swelling to right knee / surgical site clean and well approxiamted no significant erythema ++ tenderness right ankle lateral / no edema / no erythema to ankle + pulses CBC, BMP 06/14/19 07:17 06/14/19 07:17 x-rays knee / ankle / dippler LE - all reviewed --- negative Active Medications Ascorbic Acid (Vitamin C -) 500 mg PO BID [facility] Last Admin: 06/13/19 23:02 Dose: 500 mg Aspirin (Asa -) 325 mg PO DAILY@0800 [facility] Last Admin: 06/14/19 08:12 Dose: 325 mg Atorvastatin Calcium (Lipitor -) 20 mg PO HS [facility] Last Admin: 06/13/19 23:02 Dose: 20 mg Celecoxib (Celebrex -) 200 mg PO BID [facility] Last Admin: 06/13/19 23:02 Dose: 200 mg Cholecalciferol (Vitamin D3 -) 2,000 unit PO DAILY [facility] Diphenhydramine HCl (Benadryl -) 25 mg PO Q8H PRN PRN Reason: FOR ITCHING Docusate Sodium (Colace -) 100 mg PO TID PRN PRN Reason: CONSTIPATION Emtricitabine (Emtriva -) 200 mg PO HS [facility] Last Admin: 06/13/19 23:02 Dose: 200 mg Folic Acid/Iron (Folitab 500 Caplet -) 1 each PO DAILY [facility] Multivitamins/Minerals/Vitamin C (Tab-A-Vit -) 1 tab PO DAILY [facility] Oxycodone HCl (Roxicodone -) 5 mg PO Q4H PRN PRN Reason: PAIN LEVEL 6-10 Last Admin: 06/14/19 05:50 Dose: 5 mg Pantoprazole Sodium (Protonix -) 40 mg PO DAILY [facility] Polyethylene Glycol (Miralax (For Daily Use) -) 17 gm PO DAILY [facility] Zolpidem Tartrate (Ambien -) 10 mg PO HS PRN PRN Reason: INSOMNIA 58 year old female, with PMH of HIV / HLD / Methadone maint/ asthma and recent total knee replacement (05/17, left rehab early 05/20), Patient presented to ED, as per ED, with right knee swelling /pain and rubor in spite of 2 weeks of keflex - which she states she complied. # s/p TKR per post/op care instructions included 2 weeks of keflex erythema ??/ swelling to site seems appropriate -- await ortho eval blood c/s done at ER ortho eval / follow up and ID consult requested # HIV continue home meds # Methadone maintenance continue # Asthma duoneb while at hosp
[2019-06-14] MEDS ORDERED: METHADONE HCL 10 MG TABLET PO SCH (09:30)
[2019-06-14] MEDS ORDERED: PATIENT'S OWN MEDICATION (NON-FORMULARY) (Multivitamin,Ther And Minerals [Vitamin And Mine PO SCH (10:00)
[2019-06-14] MEDS ORDERED: METHADONE HCL PO SCH (10:00)
[2019-06-14] MEDS ORDERED: METHADONE HCL 10 MG TABLET ONE (10:00)
[2019-06-14] MEDS ORDERED: METHADONE HCL 40 MG DISPERSABLE TABLET ONE (10:01)
[2019-06-14] MEDS ORDERED: PT OWN MED DRAWER 7, Y5N ONE ×3 (10:02→21:01)
[2019-06-14] MEDS: METHADONE 120 MG, METHADONE 20 MG PO SCH (10:04)
[2019-06-14] MEDS: CHOLECALCIFEROL (VIT D3) 1,000 UNIT (25 MCG) TABLET PO SCH (10:06)
--- NOTE | 2019-06-14 10:06 | EKG ---
Test Reason : Blood Pressure : / mmHG Vent. Rate : 071 BPM Atrial Rate : 071 BPM P-R Int : 148 ms QRS Dur : 080 ms QT Int : 428 ms P-R-T Axes : 048 011 037 degrees QTc Int : 465 ms NORMAL SINUS RHYTHM NORMAL ECG WHEN COMPARED WITH ECG OF 22-MAY-2019 21:53, NO SIGNIFICANT CHANGE WAS FOUND Confirmed by TEJAS CESAR MD ([id number]) on 06/14/2019 10:06:46 AM Referred By: Confirmed By:TEJAS CESAR MD
[2019-06-14] MEDS: PANTOPRAZOLE 40 MG TABLET (FP) PO SCH (10:07)
[2019-06-14] MEDS: ASCORBIC ACID 500 MG TABLET (FP) PO SCH ×2 (10:07→21:09)
[2019-06-14] MEDS: MULTIVITAMINS (DAILY MVI) TABLET (FP) PO SCH (10:07)
[2019-06-14] MEDS: POLYETHYLENE GLYCOL 3350 119 GM BTL PO SCH (11:50)
[2019-06-14] MEDS: CELECOXIB 200 MG CAPSULE PO SCH ×2 (11:51→21:09)
[2019-06-14] MEDS: FERROUS SO4/VIT C/FA 1 EACH TABLET.ER PO SCH (11:51)
--- NOTE | 2019-06-14 15:51 | CONSULT ---
Consult - text type - Consultation Consultation Note: Orthopedics Full consult to follow Chart reviewed. I will see the patient this evening. S/P R TKA 05/17/19 Labs and vitals and other provider notes don't suggest infection. Pt was seen in office on 06/02/19 and was doing well and sent for outpt PT. Selected Entries 06/14/19 06/14/19 09:00 13:45 Temperature 98.3 F Pulse Rate 83 Respiratory 18 Rate Blood Pressure 132/99 O2 Sat by Pulse 96 Oximetry (%) Oxygen Delivery Room Air Method Laboratory Tests 06/13/19 06/13/19 06/13/19 15:11 15:11 15:11 WBC Hgb Hct Plt Count Neutrophils % 53.0 ESR 13 Sodium Potassium Chloride Carbon Dioxide Anion Gap BUN Creatinine Est GFR (CKD-EPI)AfAm Est GFR (CKD-EPI)NonAf Random Glucose Calcium Magnesium C-Reactive Protein 1.4 H 06/14/19 06/14/19 07:17 07:17 WBC 3.6 L Hgb 10.9 Hct 33.4 Plt Count 300 Neutrophils % ESR Sodium 139 Potassium 4.3 Chloride 106 Carbon Dioxide 30 Anion Gap 3 L BUN 15.6 Creatinine 1.2 Est GFR (CKD-EPI)AfAm 56.49 Est GFR (CKD-EPI)NonAf 48.74 Random Glucose 93 Calcium 9.3 Magnesium 2.5 H C-Reactive Protein Pt is less than one month postop, and can expect to have warmth, swelling, mild erythema, and pain at the surgical site for another 6-11 months, as it can take up to one full year to recover the from the surgery. This has been discussed with the patient multiple times but she has poor understanding and poor/absent/ nonexsistent social support at home. She has been discharged to SNF twice already and left AMA both times for various reasons. Then she finds herself at home unable to take care of herself and returns to the ER.
--- NOTE | 2019-06-14 15:53 | PN ---
Progress Note (short form) - Note Progress Note: ID CONSULT DICTATED R/O CELLULITIS R TKR SITE HIV + ASYPTOMATIC PENDING C/S EMPIRIC VANCOMYCIN/CEFTRIAXONE CONTINUE ART
[2019-06-14] MEDS ORDERED: DEXTROSE 5%-WATER 100 ML IVPB ONE (16:07)
[2019-06-14] MEDS: CEFTRIAXONE 2 GM in DEXTROSE 5%-WATER 100 ML IVPB SCH (16:14)
[2019-06-14] MEDS: VANCOMYCIN 1 GRAM (PRE-DOCKED) 1,000 MG/250 ML BAG IVPB SCH (16:52)
--- NOTE | 2019-06-14 18:59 | CONS ---
DATE OF CONSULTATION: DATE OF DICTATION: 06/14/2019 INFECTIOUS DISEASE CONSULTATION HISTORY OF PRESENT ILLNESS: The patient is a 59-year-old female history of HIV positive and asymptomatic osteoarthritis now evaluated for cellulitis of the right lower extremity. The patient underwent a right total knee replacement in May of 2019. Her immediate postoperative course was complicated by pain. She received some physical therapy, however there were adherence issues. She was noted as an outpatient to have worsening erythema, warmth, and swelling of the right lateral knee. She was prescribed oral Keflex, which she is still taking. She developed worsening pain in the right ankle and noted increased erythema around the right knee. She presented to the emergency room, where she was admitted. She was empirically treated with vancomycin and Zosyn. At the present time, she complains of right ankle pain, and she has mild right ankle swelling. She denies any traumatic injury. She reports significant improvement in the erythema of the right knee area status post antibiotic therapy. She denies any purulent wound drainage from the surgical wound. She is able to ambulate, with no complaints of fevers or chills. PAST MEDICAL HISTORY: Positive for HIV infection. The patient states she was diagnosed 25 years ago. She has been asymptomatic. She denies history of opportunistic infections. Most recent viral marker showed an undetectable viral load and a T-cell count of 1157. Past medical history also includes hyperlipidemia and gastroesophageal reflux. ALLERGIES: ABACAVIR, patient develops rash. MEDICATION: Include Keflex, . SOCIAL HISTORY: She resides in the community. She is a former and IV drug user, stopped many years ago. Denies active tobacco and alcohol use. SYSTEMS REVIEW: Neurologic: No loss of consciousness, seizure activity, focal weakness. Cardiac: Negative for chest pain or palpitations. Respiratory: Negative for cough or sputum production. Gastrointestinal: Negative vomiting or diarrhea. Genitourinary: Negative for urinary tract infection. LABORATORY DATA: White count 3.9, hematocrit 33.4, platelets 300. ESR 13, C-reactive protein 1.4, creatinine 1.2. Doppler exam negative for DVT. PHYSICAL EXAMINATION: General: On physical examination, she is out of bed to chair. She is in no acute distress. Vital signs: Temperature 98.3, blood pressure 132/99, pulse 83 regular, respirations 18 per minute. HEENT: Sclerae anicteric. Cardiovascular: Heart sounds S1, S2. Lungs: Clear. Abdomen: Obese. Soft, nontender. Extremities: Examination of the right lower extremity, there is some mild swelling present on the right lower extremity from the upper thigh to the calf area. Surgical wound is well healed without evidence of infection. There is no purulent drainage. There is slight erythema and warmth present, primarily on the lateral aspect of the right knee lateral to the surgical incision. It extends to the proximal thigh and slightly below the knee. There is some slight swelling of the right lateral malleolus. It is tender to touch. There is no warmth present. IMPRESSION: 1. Rule out cellulitis of the right total knee replacement site. 2. Human immunodeficiency virus positive, asymptomatic. 3. Leukopenia. Await culture results. Orthopedic evaluation. Empiric antibiotic coverage for possible resistant skin pathogens with vancomycin and ceftriaxone. Elevation, analgesics, continue antiretroviral therapy. Thank you for the kind referral. MISAEL KUMAR M.D. [id number]
[2019-06-14] MEDS: EMTRICITABINE 200 MG CAPSULE PO SCH (21:09)
[2019-06-14] MEDS: ATORVASTATIN CA 20 MG TABLET (FP) PO SCH (21:09)
[2019-06-14] MEDS: DOLUTEGRAVIR SODIUM 50 MG TABLET (NON-FORMULARY) PO SCH (21:10)
[2019-06-14] MEDS: DARUNAVIR 800 MG/COBICISTAT 150MG TABLET PO SCH (21:11)
[2019-06-14] MEDS: ZOLPIDEM TARTRATE 5 MG TABLET PO PRN (22:15)
[2019-06-15] MEDS: VANCOMYCIN 1 GRAM (PRE-DOCKED) 1,000 MG/250 ML BAG IVPB SCH ×2 (04:58→15:36)
[2019-06-15] MEDS ORDERED: METHADONE HCL 40 MG DISPERSABLE TABLET ONE (05:55)
[2019-06-15] MEDS ORDERED: METHADONE HCL 10 MG TABLET ONE (05:55)
[2019-06-15] MEDS: METHADONE 120 MG, METHADONE 20 MG PO SCH (06:07)
[2019-06-15] MEDS: ASPIRIN 325 MG TABLET PO SCH (08:09)
--- NOTE | 2019-06-15 08:35 | PN ---
Progress Note (short form) - Note Progress Note: see and examined in room has remained afebrile Vital Signs Period Temp Pulse Resp BP Sys/Charles Pulse Ox Last 24 Hr 98.0 F-98.3 F 66-83 18-20 97-139/61-99 96-96 neck supple heart s1/S2 lungs clear bilat abd soft non tender ext swelling to right knee / surgical site clean and well approxiamted no significant erythema ++ tenderness right ankle lateral / no edema / no erythema to ankle + pulses CBC, BMP 06/14/19 07:17 06/14/19 07:17 x-rays knee / ankle / dippler LE - all reviewed --- negative Microbiology 06/13/19 15:11 Blood - Peripheral Venous Blood Culture - Preliminary NO GROWTH OBTAINED AFTER 24 HOURS, INCUBATION TO CONTINUE FOR 4 DAYS. 06/13/19 15:11 Blood - Peripheral Venous Blood Culture - Preliminary NO GROWTH OBTAINED AFTER 24 HOURS, INCUBATION TO CONTINUE FOR 4 DAYS. Active Medications Ascorbic Acid (Vitamin C -) 500 mg PO BID [facility] Last Admin: 06/15/19 09:34 Dose: 500 mg Aspirin (Asa -) 325 mg PO DAILY@0800 [facility] Last Admin: 06/15/19 08:09 Dose: 325 mg Atorvastatin Calcium (Lipitor -) 20 mg PO HS [facility] Last Admin: 06/14/19 21:09 Dose: 20 mg Celecoxib (Celebrex -) 200 mg PO BID [facility] Last Admin: 06/15/19 09:37 Dose: 200 mg Cholecalciferol (Vitamin D3 -) 2,000 unit PO DAILY [facility] Last Admin: 06/15/19 09:34 Dose: 2,000 unit Diphenhydramine HCl (Benadryl -) 25 mg PO Q8H PRN PRN Reason: FOR ITCHING Docusate Sodium (Colace -) 100 mg PO TID PRN PRN Reason: CONSTIPATION Last Admin: 06/15/19 09:37 Dose: 100 mg Emtricitabine (Emtriva -) 200 mg PO [facility] Last Admin: 06/14/19 21:09 Dose: 200 mg Folic Acid/Iron (Folitab 500 Caplet -) 1 each PO DAILY [facility] Last Admin: 06/15/19 09:37 Dose: Not Given Vancomycin HCl (Vancomycin (Pre-Docked)) 1,000 mg in 250 mls @ 166.667 mls/hr IVPB Q12H [facility]; Protocol Last Admin: 06/15/19 04:58 Dose: 166.667 mls/hr Ceftriaxone Sodium 2 gm/ (Dextrose) 100 mls @ 200 mls/hr IVPB DAILY [facility]; Protocol Last Admin: 06/15/19 09:37 Dose: 200 mls/hr Methadone HCl 120 mg/ (Methadone HCl 20 mg) 140 mg PO DAILY@0600 [facility] Last Admin: 06/15/19 06:07 Dose: 140 mg Multivitamins/Minerals/Vitamin C (Tab-A-Vit -) 1 tab PO DAILY [facility] Last Admin: 06/15/19 09:34 Dose: 1 tab Oxycodone HCl (Roxicodone -) 5 mg PO Q4H PRN PRN Reason: PAIN LEVEL 6-10 Last Admin: 06/14/19 18:08 Dose: 5 mg Pantoprazole Sodium (Protonix -) 40 mg PO DAILY [facility] Last Admin: 06/15/19 09:34 Dose: 40 mg Polyethylene Glycol (Miralax (For Daily Use) -) 17 gm PO DAILY [facility] Last Admin: 06/15/19 09:37 Dose: Not Given Zolpidem Tartrate (Ambien -) 10 mg PO HS PRN PRN Reason: INSOMNIA Last Admin: 06/14/19 22:15 Dose: 10 mg 58 year old female, with PMH of HIV / HLD / Methadone maint/ asthma and recent total knee replacement (05/17, left rehab early 05/20), Patient presented to ED, as per ED, with right knee swelling /pain and rubor in spite of 2 weeks of keflex - which she states she complied. # s/p TKR per post/op care instructions included 2 weeks of keflex erythema ??/ swelling to site seems appropriate -- await ortho eval blood c/s done at ER ortho eval / follow up and ID consult appreicated # HIV continue home meds # Methadone maintenance continue # Asthma duoneb while at hosp
[2019-06-15] MEDS ORDERED: DEXTROSE 5%-WATER 100 ML IVPB ONE (09:15)
[2019-06-15] MEDS: PANTOPRAZOLE 40 MG TABLET (FP) PO SCH (09:34)
[2019-06-15] MEDS: ASCORBIC ACID 500 MG TABLET (FP) PO SCH ×2 (09:34→21:38)
[2019-06-15] MEDS: MULTIVITAMINS (DAILY MVI) TABLET (FP) PO SCH (09:34)
[2019-06-15] MEDS: CHOLECALCIFEROL (VIT D3) 1,000 UNIT (25 MCG) TABLET PO SCH (09:34)
[2019-06-15] MEDS ORDERED: PT OWN MED DRAWER 7, Y5N ONE ×3 (09:36→22:20)
[2019-06-15] MEDS: CELECOXIB 200 MG CAPSULE PO SCH ×2 (09:37→22:15)
[2019-06-15] MEDS: FERROUS SO4/VIT C/FA 1 EACH TABLET.ER PO SCH (09:37)
[2019-06-15] MEDS: POLYETHYLENE GLYCOL 3350 119 GM BTL PO SCH (09:37)
[2019-06-15] MEDS: CEFTRIAXONE 2 GM in DEXTROSE 5%-WATER 100 ML IVPB SCH (09:37)
--- NOTE | 2019-06-15 15:27 | PN ---
Progress Note, Physician History of Present Illness: C/O R MEDIAL ANKLE PAIN NO C/O KNEE PAIN NO WOUND DRAINAGE NO C/O FEVER/CHILLS - Current Medication List Current Medications: Active Medications Ascorbic Acid (Vitamin C -) 500 mg PO BID [facility] Last Admin: 06/15/19 09:34 Dose: 500 mg Aspirin (Asa -) 325 mg PO DAILY@0800 [facility] Last Admin: 06/15/19 08:09 Dose: 325 mg Atorvastatin Calcium (Lipitor -) 20 mg PO [facility] Last Admin: 06/14/19 21:09 Dose: 20 mg Celecoxib (Celebrex -) 200 mg PO BID [facility] Last Admin: 06/15/19 09:37 Dose: 200 mg Cholecalciferol (Vitamin D3 -) 2,000 unit PO DAILY [facility] Last Admin: 06/15/19 09:34 Dose: 2,000 unit Diphenhydramine HCl (Benadryl -) 25 mg PO Q8H PRN PRN Reason: FOR ITCHING Docusate Sodium (Colace -) 100 mg PO TID PRN PRN Reason: CONSTIPATION Last Admin: 06/15/19 09:37 Dose: 100 mg Emtricitabine (Emtriva -) 200 mg PO [facility] Last Admin: 06/14/19 21:09 Dose: 200 mg Folic Acid/Iron (Folitab 500 Caplet -) 1 each PO DAILY [facility] Last Admin: 06/15/19 09:37 Dose: Not Given Vancomycin HCl (Vancomycin (Pre-Docked)) 1,000 mg in 250 mls @ 166.667 mls/hr IVPB Q12H [facility]; Protocol Last Admin: 06/15/19 04:58 Dose: 166.667 mls/hr Ceftriaxone Sodium 2 gm/ (Dextrose) 100 mls @ 200 mls/hr IVPB DAILY [facility]; Protocol Last Admin: 06/15/19 09:37 Dose: 200 mls/hr Methadone HCl 120 mg/ (Methadone HCl 20 mg) 140 mg PO DAILY@0600 [facility] Last Admin: 06/15/19 06:07 Dose: 140 mg Multivitamins/Minerals/Vitamin C (Tab-A-Vit -) 1 tab PO DAILY [facility] Last Admin: 06/15/19 09:34 Dose: 1 tab Oxycodone HCl (Roxicodone -) 5 mg PO Q4H PRN PRN Reason: PAIN LEVEL 6-10 Last Admin: 06/14/19 18:08 Dose: 5 mg Pantoprazole Sodium (Protonix -) 40 mg PO DAILY [facility] Last Admin: 06/15/19 09:34 Dose: 40 mg Polyethylene Glycol (Miralax (For Daily Use) -) 17 gm PO DAILY [facility] Last Admin: 06/15/19 09:37 Dose: Not Given Zolpidem Tartrate (Ambien -) 10 mg PO HS PRN PRN Reason: INSOMNIA Last Admin: 06/14/19 22:15 Dose: 10 mg - Objective Vital Signs: Vital Signs Temperature 98.6 F 06/15/19 13:23 Pulse Rate 73 06/15/19 13:23 Respiratory Rate 20 06/15/19 13:23 Blood Pressure 127/76 06/15/19 13:23 O2 Sat by Pulse Oximetry (%) 97 06/15/19 09:00 Constitutional: Yes: No Distress Eyes: Yes: Conjunctiva Clear Cardiovascular: Yes: Regular Rate and Rhythm, S1, S2 Respiratory: Yes: CTA Bilaterally Gastrointestinal: Yes: Normal Bowel Sounds. No: Tenderness Extremities: Yes: Other (R KNEE SURGICAL WOUND WELL-HEALED NO DRAINAGE MINIMAL ERYTHEMA LATERAL R THIGH) Labs: CBC, BMP 06/14/19 07:17 06/14/19 07:17 INR, PTT INR 1.04 (0.83-1.09) 06/13/19 15:11 Assessment/Plan CELLULITIS IMPROVED S/P R TKR NO EVIDENCE OF WOUND INFECTION OR INFECTED TKR ORTHO F/U ORAL ANTIBIOTICS 24H
[2019-06-15] MEDS: oxyCODONE HCL 5 MG TABLET PO PRN (15:44)
--- NOTE | 2019-06-15 21:34 | PN ---
Progress Note (short form) - Note Progress Note: Pt seen and examined. C/o right ankle pain. Knee exam improved from 06/02/19 postop office visit. AVSS Selected Entries 06/15/19 06/15/19 21:30 21:32 Temperature 99.1 F Pulse Rate 69 Respiratory 18 Rate Blood Pressure 114/71 O2 Sat by Pulse 99 Oximetry (%) Laboratory Tests 06/13/19 06/13/19 06/14/19 15:11 15:11 07:17 WBC 3.6 L Hgb 10.9 Hct 33.4 Plt Count 300 ESR 13 Sodium Potassium Chloride Carbon Dioxide Anion Gap BUN Creatinine Est GFR (CKD-EPI)AfAm Est GFR (CKD-EPI)NonAf Random Glucose Calcium Magnesium C-Reactive Protein 1.4 H 06/14/19 07:17 WBC Hgb Hct Plt Count ESR Sodium 139 Potassium 4.3 Chloride 106 Carbon Dioxide 30 Anion Gap 3 L BUN 15.6 Creatinine 1.2 Est GFR (CKD-EPI)AfAm 56.49 Est GFR (CKD-EPI)NonAf 48.74 Random Glucose 93 Calcium 9.3 Magnesium 2.5 H C-Reactive Protein Gen: NAD, AAO RLE: incision c/d/i, no significant erythema or drainage, (+) warmth. No induration. ROM 0-90 degrees. No laxity. No severe pain on exam except terminal flexion. Right ankle mildly TTP with slight dependent edema. XR right ankle/knee reviewed - no fracture or acute changes A/P 59yo female s/p R TKA 05/17/19 NO EVIDENCE OF KNEE INFECTION This is what a less than [id number] knee replacement looks like. I explained to Natalya, again, to expect warmth/swelling/discomfort for another 6-12 months until the knee has fully healed. OK to d/c home from my perspective. Needs to start outpatient PT right away after discharge. She has a prescription already and had made an appointment at [facility] to start yesterday - she missed this appt and needs to reschedule it. F/U in office in 4 weeks for ROM check.
[2019-06-15] MEDS: ATORVASTATIN CA 20 MG TABLET (FP) PO SCH (21:38)
[2019-06-15] MEDS: ZOLPIDEM TARTRATE 5 MG TABLET PO PRN (21:39)
[2019-06-15] MEDS: DARUNAVIR 800 MG/COBICISTAT 150MG TABLET PO SCH (22:15)
[2019-06-15] MEDS: DOLUTEGRAVIR SODIUM 50 MG TABLET (NON-FORMULARY) PO SCH (22:16)
[2019-06-15] MEDS: EMTRICITABINE 200 MG CAPSULE PO SCH (22:16)
[2019-06-16] MEDS: VANCOMYCIN 1 GRAM (PRE-DOCKED) 1,000 MG/250 ML BAG IVPB SCH (03:04)
[2019-06-16] MEDS ORDERED: METHADONE HCL 10 MG TABLET ONE (05:34)
[2019-06-16] MEDS ORDERED: METHADONE HCL 40 MG DISPERSABLE TABLET ONE (05:35)
[2019-06-16] MEDS: METHADONE 120 MG, METHADONE 20 MG PO SCH (05:41)
[2019-06-16 08:24] LABS: BASO % 0.6 % (0-2.0); EOS % 2.1 % (0-4.5); HEMATOCRIT 37.2 % (32.4-45.2); HEMOGLOBIN 12.2 GM/dL (10.7-15.3); LYMPH % 31.9 % (8-40); MCH 28.5 pg (25.7-33.7); MCHC 32.7 g/dl (32.0-36.0); MEAN CELL VOLUME 87.1 fl (80-96); MEAN PLT VOLUME 7.8 fl (7.5-11.1); MONO % 11.4 % (3.8-10.2); PLATELET COUNT 334 K/MM3 (134-434); RBC 4.28 M/mm3 (3.60-5.2); RDW 16.8 % (11.6-15.6); WHITE BLOOD COUNT 4.7 K/mm3 (4.0-10.0)
[2019-06-16 08:50] LABS: BLOOD UREA NITROGEN 14.7 mg/dL (7-18); CALCIUM 9.4 mg/dL (8.5-10.1); CREATININE 1.1 mg/dL (0.55-1.3); POTASSIUM 4.4 mmol/L (3.5-5.1)
[2019-06-16] MEDS ORDERED: DEXTROSE 5%-WATER 100 ML IVPB ONE (09:39)
[2019-06-16] MEDS: CHOLECALCIFEROL (VIT D3) 1,000 UNIT (25 MCG) TABLET PO SCH (09:44)
[2019-06-16] MEDS: CEFTRIAXONE 2 GM in DEXTROSE 5%-WATER 100 ML IVPB SCH (09:45)
[2019-06-16] MEDS: MULTIVITAMINS (DAILY MVI) TABLET (FP) PO SCH (09:45)
[2019-06-16] MEDS: ASPIRIN 325 MG TABLET PO SCH (09:45)
[2019-06-16] MEDS: ASCORBIC ACID 500 MG TABLET (FP) PO SCH (09:45)
[2019-06-16] MEDS ORDERED: PT OWN MED DRAWER 7, Y5N ONE (09:55)
[2019-06-16] MEDS: CELECOXIB 200 MG CAPSULE PO SCH (10:13)
[2019-06-16] MEDS: PANTOPRAZOLE 40 MG TABLET (FP) PO SCH (10:13)
[2019-06-16] MEDS: FERROUS SO4/VIT C/FA 1 EACH TABLET.ER PO SCH (10:15)
[2019-06-16] MEDS: POLYETHYLENE GLYCOL 3350 119 GM BTL PO SCH (10:16)
--- NOTE | 2019-06-16 12:03 | DS ---
Physical Examination Vital Signs: Vital Signs Temperature 97.3 F L 06/16/19 06:22 Pulse Rate 63 06/16/19 06:22 Respiratory Rate 20 06/16/19 06:22 Blood Pressure 110/65 06/16/19 06:22 O2 Sat by Pulse Oximetry (%) 99 06/15/19 21:32 Findings/Remarks: 58 year old female, with PMH of HIV / HLD / Methadone maint/ asthma and recent total knee replacement (05/17, left rehab early 05/20), Patient presented to ED, as per ED, with right knee swelling /pain and rubor in spite of 2 weeks of keflex - which she states she complied. No documented fever or chills, patient c/o was limited to right ankle pain at time of my evaluation for admission. # s/p TKR on 05/17/19 per post/op care instructions included 2 weeks of keflex per ortho evaluation swelling appropriate for surgical recovery blood c/s done at ER -- negative to date ortho eval / follow up appreciated please review consult # HIV continue home meds # Methadone maintenance continue # Asthma duoneb while at hosp Constitutional: Yes: Well Nourished, No Distress, Calm Eyes: Yes: Conjunctiva Clear, EOM Intact HENT: Yes: Atraumatic, Normocephalic Neck: Yes: Supple, Trachea Midline Cardiovascular: Yes: Regular Rate and Rhythm Respiratory: Yes: Regular, CTA Bilaterally Gastrointestinal: Yes: Normal Bowel Sounds, Soft ...Rectal Exam: Yes: Deferred Renal/: Yes: WNL Breast(s): Yes: WNL Musculoskeletal: Yes: WNL, Joint Stiffness, Joint Swelling (appropriate s/p TKR right) Extremities: Yes: WNL, Other (s/p right TKR local swelling / surgical site clean) Edema: No Peripheral Pulses WNL: Yes Integumentary: Yes: WNL Wound/Incision: Yes: Well Approximated, Open to air, Sutures Removed. No: Draining, Reddened, Excoriated Neurological: Yes: WNL Psychiatric: Yes: Alert, Oriented Labs: CBC, BMP 06/16/19 07:00 06/16/19 07:00 Discharge Summary Problems reviewed: Yes Reason For Visit: ankle pain ,HISTORY OF IMMUNOCOMPROMISED STATE Current Active Problems History of immunocompromised state (Acute) Right ankle pain (Acute) Total knee replacement status (Acute) asthma ( chronic) Condition: Stable - Instructions Referrals: Mikey Mchugh [Primary Care Provider] - Disposition: HOME - Home Medications Comprehensive Discharge Medication List: Ambulatory Orders Methadone HCl [Methadose] 140 mg PO DAILY 05/14/16 Polyethylene Glycol 3350 [Miralax 119 gm Btl -] 17 gm PO DAILY PRN #1 bottle 06/22 Albuterol Sulfate Inhaler - [Ventolin HFA Inhaler -] 1 - 2 inh PO QID PRN #1 inh 12/15/18 Atorvastatin Ca [Lipitor] 20 mg PO HS #30 tablet 03/17/19 Cholecalciferol (Vitamin D3) [Vitamin D3] 2,000 unit PO DAILY #30 capsule Docusate Sodium [Colace -] 100 mg PO TID PRN #90 capsule 03/17/19 Multivitamin,Ther and Minerals [Vitamin and Minerals] 1 each PO DAILY #30 tablet 03/17/19 Diphenhydramine HCl [Benadryl Capsule -] 1 cap PO Q8H PRN #15 capsule MDD 3 Clotrimazole [Clotrimazole AF] 1 applic TP BID #30 cream..g. 05/11/19 Darunavir/Cobicistat [Prezcobix 800 mg-150 mg Tablet] 1 each PO HS 05/17/19 Dolutegravir Sodium [Tivicay] 50 mg PO HS 05/17/19 Emtricitabine [Emtriva -] 200 mg PO HS 05/17/19 Zolpidem Tartrate [Ambien] 10 mg PO HS 05/17/19 Ascorbic Acid [Vitamin C -] 500 mg PO BID tablet 05/19/19 Aspirin [ASA -] 325 mg PO DAILY@0800 #40 tablet 05/19/19 Celecoxib [CeleBREX -] 200 mg PO BID #60 capsule 05/19/19 Cephalexin Monohydrate [Keflex -] 500 mg PO TID #42 capsule 05/19/19 Oxycodone HCl/Acetaminophen [Percocet 5-325 mg Tablet] 1 - 2 tab PO Q4H PRN #60 tablet MDD 10 05/19/19 Pantoprazole Sodium [Protonix -] 40 mg PO DAILY #40 tablet.ec 05/19/19 Albuterol 0.083% Nebulizer Nanette [Ventolin 0.083% Nebulizer Soln -] 1 amp NEB RQID amp 05/25/19 Cephalexin Monohydrate [Keflex -] 500 mg PO TID capsule 05/25/19 Ferrous Sulfate/Vit C/FA [Folitab 500 Caplet -] 1 each PO DAILY tablet.er 05/25 oxyCODONE HCL [Roxicodone -] 5 mg PO Q4H PRN 5 Days #20 tablet MDD 20 mg Multivitamin [Multiple Vitamins] 1 each PO DAILY #30 tablet 06/01/19 Prescription Drug Monitoring Program (I-STOP) results: I-STOP not reviewed
[2019-06-16 13:35] VITALS: BP 132/71; PULSE 77; TEMP 98.6
== END 2019-06-16 15:53 | disposition home or self-care (01) | DRG 351 ==
LOC: JER 14:36 → JERBED 19:28 → J6S 06-14 02:45
PROVIDERS: ADMIT Family Medicine; ATTEND Family Medicine
DX: M25.571 Pain in right ankle and joints of right foot (principal); M25.461 Effusion, right knee; Z21 Asymptomatic human immunodeficiency virus [HIV] infection status; E78.5 Hyperlipidemia, unspecified; K21.9 Gastro-esophageal reflux disease without esophagitis; L53.9 Erythematous condition, unspecified; J45.909 Unspecified asthma, uncomplicated; M25.471 Effusion, right ankle; F11.20 Opioid dependence, uncomplicated; G62.89 Other specified polyneuropathies; D72.819 Decreased white blood cell count, unspecified; K59.09 Other constipation; J30.9 Allergic rhinitis, unspecified; F32.9 Major depressive disorder, single episode, unspecified; E66.8 Other obesity; Z68.31 Body mass index [BMI] 31.0-31.9, adult; Z96.651 Presence of right artificial knee joint
CPT/HCPCS: 36415; 71046-TC-FY; 73562-TC-RT-FY; 73590-TC-RT-FY; 73610-TC-RT-FY; 80048; 80053; 83605; 83735; 85025; 85027; 85610; 85651; 85730; 86140; 86850; 86900; 86901; 87040; 93005; 93010; 93971-TC; 99285-25; J0131; J7030

== ENCOUNTER 2020-07-14 17:35 | Emergency (ER) | payer OTHER ==
[2020-07-14 17:43] VITALS: TEMP 98.1; BMI 34.5
[2020-07-14] MEDS ORDERED: SODIUM CHLORIDE 1,000 ML IV STA (18:40)
[2020-07-14] MEDS ORDERED: morphine CARPU-JECT 4 MG/1 ML DISP.SYRIN IVPUSH ONE (18:42)
[2020-07-14] MEDS ORDERED: morphine SULFATE 4 MG/ML VIAL ONE (19:22)
[2020-07-14 19:33] LABS: BASO % 0.4 % (0-2.0); EOS % 0.7 % (0-4.5); HEMATOCRIT 43.9 % (32.4-45.2); HEMOGLOBIN 13.9 GM/dL (10.7-15.3); LYMPH % 27.8 % (8-40); MCH 27.7 pg (25.7-33.7); MCHC 31.5 g/dl (32.0-36.0); MEAN CELL VOLUME 87.8 fl (80-96); MEAN PLT VOLUME 7.7 fl (7.5-11.1); MONO % 6.5 % (3.8-10.2); NEUT % 64.6 % (42.8-82.8); PLATELET COUNT 255 K/MM3 (134-434); RBC 5.01 M/mm3 (3.60-5.2); RDW 15.1 % (11.6-15.6); WHITE BLOOD COUNT 6.9 K/mm3 (4.0-10.0)
[2020-07-14 19:54] LABS: CHLORIDE 105 mmol/L (98-107); POTASSIUM 3.8 mmol/L (3.5-5.1); SODIUM 138 mmol/L (136-145)
[2020-07-14 19:57] LABS: CALCIUM 9.1 mg/dL (8.5-10.1)
[2020-07-14 19:58] LABS: ALBUMIN 3.6 g/dl (3.4-5.0); ANION GAP 7 MMOL/L (8-16); BLOOD UREA NITROGEN 12.7 mg/dL (7-18); CO2 27 mmol/L (21-32); GLUCOSE,RANDOM 121 mg/dL (74-106); LIPASE 47 U/L (73-393)
[2020-07-14 20:01] LABS: CREATININE 1.1 mg/dL (0.55-1.3); SGOT/AST 24 U/L (15-37); SGPT/ALT 35 U/L (13-61)
[2020-07-14 20:02] LABS: BILIRUBIN,TOTAL 0.3 mg/dL (0.2-1)
[2020-07-14 20:04] LABS: ALK PHOS 95 U/L (45-117)
[2020-07-14 21:48] VITALS: BP 118/68; PULSE 84
== END 2020-07-14 21:40 | disposition home or self-care (01) ==
LOC: JER 17:35
PROC: 3E033NZ Introduction of Analgesics, Hypnotics, Sedatives into Peripheral Vein, Percutaneous Approach (ICD-10-PCS; principal; 2020-07-14)
PROC: 3E0337Z Introduction of Electrolytic and Water Balance Substance into Peripheral Vein, Percutaneous Approach (ICD-10-PCS; 2020-07-14)
DX: M54.5 Low back pain (principal)
CPT/HCPCS: 36415; 72100-TC-FY; 80053; 82550; 82553; 83690; 84484; 85025; 93005; 93010; 99285-25

== ENCOUNTER 2021-04-18 00:48 | Observation (INO) | payer OTHER ==
[2021-04-18 00:54] VITALS: BMI 32.2
[2021-04-18] MEDS ORDERED: MECLIZINE HCL 25 MG TABLET (FP) PO ONE (02:03)
[2021-04-18] MEDS ORDERED: MECLIZINE HCL 25 MG TABLET (FP) ONE ×2 (02:17→21:29)
[2021-04-18 03:11] LABS: BASO % 0.4 % (0-2.0); EOS % 0.7 % (0-4.5); HEMATOCRIT 44.2 % (32.4-45.2); HEMOGLOBIN 14.6 GM/dL (10.7-15.3); LYMPH % 26.4 % (8-40); MCH 28.5 pg (25.7-33.7); MCHC 33.1 g/dl (32.0-36.0); MEAN CELL VOLUME 86.1 fl (80-96); MEAN PLT VOLUME 7.4 fl (7.5-11.1); MONO % 9.8 % (3.8-10.2); NEUT % 62.7 % (42.8-82.8); PLATELET COUNT 232 10^3/uL (134-434); RBC 5.13 M/mm3 (3.60-5.2)
[2021-04-18 03:28] LABS: CHLORIDE 102 mmol/L (98-107); SODIUM 138 mmol/L (136-145)
[2021-04-18 03:30] LABS: ANION GAP 6 MMOL/L (8-16); BLOOD UREA NITROGEN 12.5 mg/dL (7-18); CALCIUM 8.9 mg/dL (8.5-10.1); CO2 29 mmol/L (21-32); GLUCOSE,RANDOM 101 mg/dL (74-106)
[2021-04-18 03:34] LABS: CREATININE 1.1 mg/dL (0.55-1.3); SGOT/AST 20 U/L (15-37); SGPT/ALT 36 U/L (13-61)
[2021-04-18 03:36] LABS: ALK PHOS 118 U/L (45-117); BILIRUBIN,TOTAL 0.5 mg/dL (0.2-1); TOT PROT 7.7 g/dl (6.4-8.2)
[2021-04-18] MEDS ORDERED: SODIUM CHLORIDE 0.9% 1000 ML INFUS.BAG IV ONE (04:24)
[2021-04-18] MEDS ORDERED: diazePAM 5 MG TABLET PO ONE (04:24)
[2021-04-18] MEDS ORDERED: diazePAM 5 MG TABLET ONE (04:32)
[2021-04-18] MEDS ORDERED: MECLIZINE HCL 25 MG TABLET (FP) PO PRN (08:38)
[2021-04-18] MEDS ORDERED: ONDANSETRON 4 MG/2 ML VIAL IVPUSH PRN (08:43)
[2021-04-18] MEDS ORDERED: methaDONE HCL 10 MG TABLET PO SCH (08:45)
[2021-04-18] MEDS ORDERED: ALBUTEROL SO4 HFA INHALER IH PRN (08:50)
[2021-04-18] MEDS ORDERED: TERBINAFINE HCL TP SCH ×2 (10:00→14:00)
[2021-04-18] MEDS ORDERED: ASPIRIN 81 MG CHEWABLE TABLETS ONE (10:21)
[2021-04-18] MEDS ORDERED: ENOXAPARIN NA (PORCINE) 40 MG/0.4 ML DISP.SYRIN SQ ONE (10:21)
[2021-04-18] MEDS ORDERED: methaDONE HCL 40 MG DISPERSABLE TABLET ONE (10:51)
[2021-04-18] MEDS ORDERED: methaDONE HCL 10 MG TABLET ONE (10:51)
[2021-04-18] MEDS: EMTRICITABINE 200 MG CAPSULE PO SCH (11:03)
[2021-04-18] MEDS: ASPIRIN 81 MG CHEWABLE TABLETS PO SCH (11:03)
[2021-04-18] MEDS: ENOXAPARIN NA (PORCINE) 40 MG/0.4 ML DISP.SYRIN SQ SCH (11:04)
[2021-04-18] MEDS: MULTIVITAMINS THER W-MINERALS COMBO TABLET (FP) PO SCH (11:04)
[2021-04-18] MEDS: DARUNAVIR 800 MG/COBICISTAT 150MG TABLET PO SCH (11:04)
[2021-04-18] MEDS: DOLUTEGRAVIR SODIUM 50 MG TABLET (NON-FORMULARY) PO SCH (11:04)
[2021-04-18] MEDS ORDERED: DOCUSATE SODIUM 100 MG CAPSULE (FP) PO ONE (19:43)
[2021-04-18] MEDS: DOCUSATE SODIUM 100 MG CAPSULE (FP) PO SCH ×2 (20:57→21:38)
[2021-04-18] MEDS ORDERED: ATORVASTATIN CA 20 MG TABLET (FP) ONE (21:29)
[2021-04-18] MEDS: MECLIZINE HCL 25 MG TABLET (FP) PO SCH (21:37)
[2021-04-18] MEDS ORDERED: ZOLPIDEM TARTRATE 5 MG TABLET ONE (21:43)
[2021-04-18] MEDS ORDERED: ATORVASTATIN CA 20 MG TABLET (FP) PO SCH (22:00)
[2021-04-18] MEDS ORDERED: ZOLPIDEM TARTRATE 5 MG TABLET PO PRN (22:00)
[2021-04-18] MEDS ORDERED: SENNOSIDES 8.6MG TABLET (FP) PO PRN (22:00)
[2021-04-19] MEDS ORDERED: methaDONE HCL 10 MG TABLET ONE ×2 (06:01→09:28)
[2021-04-19] MEDS ORDERED: methaDONE HCL 40 MG DISPERSABLE TABLET ONE ×2 (06:02→09:28)
[2021-04-19] MEDS ORDERED: DOCUSATE SODIUM 100 MG CAPSULE (FP) PO ONE ×2 (06:02→09:28)
[2021-04-19] MEDS ORDERED: MECLIZINE HCL 25 MG TABLET (FP) ONE ×2 (06:02→09:28)
[2021-04-19] MEDS: MECLIZINE HCL 25 MG TABLET (FP) PO SCH (06:49)
[2021-04-19] MEDS: DOCUSATE SODIUM 100 MG CAPSULE (FP) PO SCH (06:49)
[2021-04-19] MEDS ORDERED: ENOXAPARIN NA (PORCINE) 40 MG/0.4 ML DISP.SYRIN SQ ONE (09:29)
[2021-04-19] MEDS ORDERED: PT OWN MED DRAWER 7, Y5N ONE ×2 (09:29→11:41)
[2021-04-19 09:33] LABS: BASO % 0.3 % (0-2.0); EOS % 1.2 % (0-4.5); HEMATOCRIT 43.3 % (32.4-45.2); HEMOGLOBIN 14.3 GM/dL (10.7-15.3); LYMPH % 41.7 % (8-40); MCH 28.8 pg (25.7-33.7); MCHC 32.9 g/dl (32.0-36.0); MEAN CELL VOLUME 87.4 fl (80-96); MONO % 9.9 % (3.8-10.2); NEUT % 46.9 % (42.8-82.8); PLATELET COUNT 238 10^3/uL (134-434); RBC 4.95 M/mm3 (3.60-5.2); RDW 14.9 % (11.6-15.6); WHITE BLOOD COUNT 6.5 K/mm3 (4.0-10.0)
[2021-04-19 09:58] LABS: ALBUMIN 3.8 g/dl (3.4-5.0)
[2021-04-19 10:00] LABS: BLOOD UREA NITROGEN 13.4 mg/dL (7-18)
[2021-04-19 10:05] LABS: BILIRUBIN,TOTAL 0.4 mg/dL (0.2-1); MAGNESIUM 2.3 mg/dL (1.8-2.4); PHOSPHOROUS 3.1 mg/dL (2.5-4.9)
[2021-04-19 10:06] LABS: TOT PROT 7.3 g/dl (6.4-8.2)
[2021-04-19] MEDS: ASPIRIN 81 MG CHEWABLE TABLETS PO SCH (10:27)
[2021-04-19] MEDS: MULTIVITAMINS THER W-MINERALS COMBO TABLET (FP) PO SCH (11:48)
[2021-04-19] MEDS: DARUNAVIR 800 MG/COBICISTAT 150MG TABLET PO SCH (11:48)
[2021-04-19] MEDS: ENOXAPARIN NA (PORCINE) 40 MG/0.4 ML DISP.SYRIN SQ SCH (11:48)
[2021-04-19] MEDS: DOLUTEGRAVIR SODIUM 50 MG TABLET (NON-FORMULARY) PO SCH (11:48)
[2021-04-19] MEDS: EMTRICITABINE 200 MG CAPSULE PO SCH (11:48)
[2021-04-19 16:12] VITALS: BP 120/68; PULSE 82; TEMP 98.1
== END 2021-04-19 16:00 | disposition home or self-care (01) ==
LOC: JER 00:48 → UNDOADMOB 05:20 → JERBED 05:20 → INTOOBSV 05:20 → JERBED 04-19 11:27
PROVIDERS: ADMIT Internal Medicine; ATTEND Internal Medicine
PROC: 3E023GC Introduction of Other Therapeutic Substance into Muscle, Percutaneous Approach (ICD-10-PCS; principal; 2021-04-19)
PROC: 3E0337Z Introduction of Electrolytic and Water Balance Substance into Peripheral Vein, Percutaneous Approach (ICD-10-PCS; 2021-04-19)
DX: Z21 Asymptomatic human immunodeficiency virus [HIV] infection status (principal); F11.90 Opioid use, unspecified, uncomplicated; R73.03 Prediabetes; J45.909 Unspecified asthma, uncomplicated; F17.210 Nicotine dependence, cigarettes, uncomplicated; F32.9 Major depressive disorder, single episode, unspecified; Z29.9 Encounter for prophylactic measures, unspecified; E66.8 Other obesity; Z68.32 Body mass index [BMI] 32.0-32.9, adult; Z23 Encounter for immunization
CPT/HCPCS: 36415; 70450-TC; 71046-TC-FY; 80053; 82550; 82553; 83735; 84100; 84484; 85025; 93005; 93010; 96360; 99285-25; C9803; G0378; U0003; U0005

== ENCOUNTER 2021-08-18 16:23 | Emergency (ER) | payer OTHER ==
[2021-08-18 16:47] VITALS: TEMP 98.5; BMI 31.6
[2021-08-18] MEDS ORDERED: DEXAMETHASONE LIQUID 0.5 MG/5 ML PO ONE (23:13)
[2021-08-18] MEDS ORDERED: DEXAMETHASONE SOD PHOSPHATE 10 MG/1 ML VIAL ONE (23:25)
[2021-08-18 23:38] VITALS: BP 115/76; PULSE 81
== END 2021-08-18 23:45 | disposition home or self-care (01) ==
LOC: JER 16:23
DX: M54.12 Radiculopathy, cervical region (principal)
CPT/HCPCS: 70450-TC; 72125-TC; 99284-25

== ENCOUNTER 2022-07-01 11:43 | Emergency (ER) | payer OTHER ==
[2022-07-01 12:30] VITALS: PULSE 66; RESP 20; TEMP 98.5; BMI 31.2
[2022-07-01 14:39] LABS: BASO % 0.4 % (0-2.0); EOS % 2.2 % (0-4.5); HEMATOCRIT 43.1 % (32.4-45.2); HEMOGLOBIN 13.7 GM/dL (10.7-15.3); MCH 27.9 pg (25.7-33.7); MCHC 31.7 g/dl (32.0-36.0); MEAN CELL VOLUME 87.8 fl (80-96); MEAN PLT VOLUME 7.8 fl (7.5-11.1); MONO % 8.7 % (3.8-10.2); NEUT % 56.7 % (42.8-82.8); PLATELET COUNT 235 10^3/uL (134-434); RBC 4.91 M/mm3 (3.60-5.2); RDW 14.7 % (11.6-15.6); WHITE BLOOD COUNT 6.3 K/mm3 (4.0-10.0)
[2022-07-01 14:47] LABS: PROTHROMBIN TIME (PATIENT) 11.5 SEC (9.7-13.0)
[2022-07-01 14:50] LABS: ACTIVATED PTT 31.3 SECONDS (25.2-36.5)
[2022-07-01 15:02] LABS: CALCIUM 9.3 mg/dL (8.5-10.1)
[2022-07-01 15:03] LABS: ALBUMIN 3.6 g/dl (3.4-5.0); BLOOD UREA NITROGEN 17.2 mg/dL (7-18)
[2022-07-01 15:06] LABS: CREATININE 1.1 mg/dL (0.55-1.3)
[2022-07-01 15:08] LABS: BILIRUBIN,TOTAL 0.4 mg/dL (0.2-1); TOT PROT 6.4 g/dl (6.4-8.2)
[2022-07-01 15:57] VITALS: BP 92/60
== END 2022-07-01 17:05 | disposition home or self-care (01) ==
LOC: JER 11:43
DX: R07.9 Chest pain, unspecified (principal)
CPT/HCPCS: 36415; 71046-TC-FY; 80053; 84484; 85025; 85610; 85730; 93005; 93010; 99285-25

== ENCOUNTER 2022-11-06 18:13 | Observation (INO) | payer OTHER ==
[2022-11-06 18:35] VITALS: BP 110/62; PULSE 76; RESP 18; TEMP 98.9; BMI 71.8
[2022-11-06] MEDS ORDERED: ACETAMINOPHEN 1000 MG/100 ML BAG IVPB ONE (19:52)
[2022-11-06] MEDS ORDERED: ACETAMINOPHEN INJECTION 100 ML IVPB ONE (19:57)
[2022-11-06 20:27] LABS: BASO % 0.4 % (0-2.0); EOS % 1.3 % (0-4.5); HEMATOCRIT 40.6 % (32.4-45.2); HEMOGLOBIN 13.4 GM/dL (10.7-15.3); LYMPH % 35.6 % (8-40); MCH 28.4 pg (25.7-33.7); MCHC 33.1 g/dl (32.0-36.0); MEAN CELL VOLUME 85.9 fl (80-96); MEAN PLT VOLUME 7.6 fl (7.5-11.1); MONO % 9.1 % (3.8-10.2); NEUT % 53.6 % (42.8-82.8); PLATELET COUNT 226 10^3/uL (134-434); RBC 4.73 M/mm3 (3.60-5.2); RDW 14.4 % (11.6-15.6); WHITE BLOOD COUNT 5.6 K/mm3 (4.0-10.0)
[2022-11-06 20:34] LABS: INR 0.99 (0.83-1.09); PROTHROMBIN TIME (PATIENT) 11.5 SEC (9.7-13.0)
[2022-11-06 20:37] LABS: ACTIVATED PTT 33.3 SECONDS (25.2-36.5)
[2022-11-06 20:49] LABS: ALBUMIN 3.8 g/dl (3.4-5.0); CALCIUM 9.2 mg/dL (8.5-10.1)
[2022-11-06 20:50] LABS: BLOOD UREA NITROGEN 16.5 mg/dL (7-18)
[2022-11-06 20:54] LABS: BILIRUBIN,TOTAL 0.4 mg/dL (0.2-1); TOT PROT 6.9 g/dl (6.4-8.2)
[2022-11-07] MEDS ORDERED: IBUPROFEN 600 MG TABLET (FP) PO ONE (00:30)
== END 2022-11-06 23:51 | disposition home or self-care (01) ==
LOC: JER 18:13 → JERBED 22:55
PROVIDERS: ADMIT Internal Medicine; ATTEND Internal Medicine
PROC: 3E033NZ Introduction of Analgesics, Hypnotics, Sedatives into Peripheral Vein, Percutaneous Approach (ICD-10-PCS; principal; 2022-11-06)
DX: R07.9 Chest pain, unspecified (principal); E78.5 Hyperlipidemia, unspecified; J45.909 Unspecified asthma, uncomplicated; E66.01 Morbid (severe) obesity due to excess calories; Z68.45 Body mass index [BMI] 70 or greater, adult; B20 Human immunodeficiency virus [HIV] disease; Z88.8 Allergy status to other drugs, medicaments and biological substances
CPT/HCPCS: 0241U-QW; 36415; 71045-TC-FY; 80053; 84484; 85025; 85610; 85730; 93005; 93010; 96374; 99285-25; G0378

== ENCOUNTER 2023-01-22 13:48 | Emergency (ER) | payer OTHER ==
[2023-01-22 13:54] VITALS: BP 118/74; PULSE 70; RESP 16; TEMP 98.7; BMI 28.3
[2023-01-22] MEDS ORDERED: ACETAMINOPHEN 1000 MG/100 ML BAG IVPB ONE (14:13)
[2023-01-22] MEDS ORDERED: ACETAMINOPHEN INJECTION 100 ML IVPB ONE (14:33)
[2023-01-22 15:11] LABS: BASO % 0.3 % (0-2.0); EOS % 1.4 % (0-4.5); HEMATOCRIT 41.4 % (32.4-45.2); HEMOGLOBIN 13.2 GM/dL (10.7-15.3); LYMPH % 27.4 % (8-40); MCH 28.1 pg (25.7-33.7); MEAN CELL VOLUME 87.8 fl (80-96); MEAN PLT VOLUME 8.3 fl (7.5-11.1); MONO % 9.9 % (3.8-10.2); PLATELET COUNT 240 10^3/uL (134-434); RBC 4.72 M/mm3 (3.60-5.2); RDW 14.8 % (11.6-15.6); WHITE BLOOD COUNT 6.6 K/mm3 (4.0-10.0)
[2023-01-22 15:18] LABS: INR 0.99 (0.83-1.09); PROTHROMBIN TIME (PATIENT) 11.5 SEC (9.7-13.0)
[2023-01-22 15:20] LABS: ACTIVATED PTT 36.4 SECONDS (25.2-36.5)
[2023-01-22 15:36] LABS: POTASSIUM 4.2 mmol/L (3.5-5.1)
[2023-01-22 15:38] LABS: ALBUMIN 3.7 g/dl (3.4-5.0); CALCIUM 9.7 mg/dL (8.5-10.1)
[2023-01-22 15:39] LABS: BLOOD UREA NITROGEN 16.6 mg/dL (7-18)
[2023-01-22 15:43] LABS: BILIRUBIN,TOTAL 0.3 mg/dL (0.2-1); TOT PROT 6.7 g/dl (6.4-8.2)
[2023-01-22] MEDS ORDERED: CEPHALEXIN MONOHYDRATE 500 MG CAPSULE (UD) PO ONE (18:35)
[2023-01-22] MEDS ORDERED: CEPHALEXIN MONOHYDRATE 500 MG CAPSULE (UD) ONE (18:50)
== END 2023-01-22 19:03 | disposition home or self-care (01) ==
LOC: JER 13:48
PROC: 3E033NZ Introduction of Analgesics, Hypnotics, Sedatives into Peripheral Vein, Percutaneous Approach (ICD-10-PCS; principal; 2023-01-22)
PROC: 3E033GC Introduction of Other Therapeutic Substance into Peripheral Vein, Percutaneous Approach (ICD-10-PCS; 2023-01-22)
DX: R22.42 Localized swelling, mass and lump, left lower limb (principal); L03.116 Cellulitis of left lower limb
CPT/HCPCS: 36415; 70450-TC; 70486-TC; 72125-TC; 73564-TC-LT-FY; 80053; 83880; 85025; 85610; 85730; 87040; 93971-TC; 99285-25

== ENCOUNTER 2023-05-06 15:12 | Emergency (ER) | payer OTHER ==
[2023-05-06 15:57] VITALS: BP 118/62; PULSE 81; RESP 18; TEMP 98.2; BMI 31.4
[2023-05-06] MEDS ORDERED: ACETAMINOPHEN 500 MG TABLET (FP) PO ONE (16:33)
[2023-05-06] MEDS ORDERED: ACETAMINOPHEN 500 MG TABLET (FP) ONE (16:37)
[2023-05-06] MEDS ORDERED: LIDOCAINE 5% TOPICAL PATCH TP ONE (17:12)
[2023-05-06] MEDS ORDERED: LIDOCAINE 4% PATCH TP ONE ×2 (17:13→17:15)
[2023-05-06 17:43] LABS: BASO % 0.2 % (0-2.0); EOS % 1.2 % (0-4.5); HEMATOCRIT 41.1 % (32.4-45.2); HEMOGLOBIN 13.6 GM/dL (10.7-15.3); LYMPH % 32.5 % (8-40); MCH 28.5 pg (25.7-33.7); MCHC 33.1 g/dl (32.0-36.0); MEAN CELL VOLUME 86.1 fl (80-96); MEAN PLT VOLUME 7.6 fl (7.5-11.1); MONO % 7.4 % (3.8-10.2); NEUT % 58.7 % (42.8-82.8); PLATELET COUNT 221 10^3/uL (134-434); RBC 4.77 M/mm3 (3.60-5.2); RDW 14.8 % (11.6-15.6); WHITE BLOOD COUNT 6.6 K/mm3 (4.0-10.0)
[2023-05-06 17:59] LABS: POTASSIUM 4.6 mmol/L (3.5-5.1)
[2023-05-06 18:02] LABS: ALBUMIN 3.8 g/dl (3.4-5.0); BLOOD UREA NITROGEN 13.1 mg/dL (7-18); CALCIUM 9.3 mg/dL (8.5-10.1); MAGNESIUM 2.5 mg/dL (1.8-2.4)
[2023-05-06 18:05] LABS: CREATININE 1.4 mg/dL (0.55-1.3)
[2023-05-06 18:07] LABS: BILIRUBIN,TOTAL 0.3 mg/dL (0.2-1)
[2023-05-06] MEDS ORDERED: LIDOCAINE PATCH REMOVAL MC SCH (22:00)
[2023-05-07] MEDS ORDERED: LIDOCAINE PATCH REMOVAL MC SCH (05:00)
== END 2023-05-06 19:44 | disposition home or self-care (01) ==
LOC: JER 15:12
DX: S20.212A Contusion of left front wall of thorax, initial encounter (principal); R07.81 Pleurodynia; M54.9 Dorsalgia, unspecified; W10.8XXA Fall (on) (from) other stairs and steps, initial encounter; W22.01XA Walked into wall, initial encounter; Y92.59 Other trade areas as the place of occurrence of the external cause
CPT/HCPCS: 36415; 70450-TC; 71046-TC-FY; 71250-TC; 72125-TC; 80053; 83735; 84484; 85025; 93005; 93010; 99285-25

== ENCOUNTER 2023-07-15 13:37 | Emergency (ER) | payer OTHER ==
[2023-07-15 13:57] VITALS: RESP 16; TEMP 97.9; BMI 31.6
[2023-07-15] MEDS ORDERED: ACETAMINOPHEN 500 MG TABLET (FP) PO ONE (15:03)
[2023-07-15] MEDS ORDERED: ACETAMINOPHEN 500 MG TABLET (FP) ONE (15:03)
[2023-07-15 15:51] VITALS: BP 109/67; PULSE 60
== END 2023-07-15 15:55 | disposition home or self-care (01) ==
LOC: JER 13:37
DX: R51.9 Headache, unspecified (principal); W01.198A Fall on same level from slipping, tripping and stumbling with subsequent striking against other object, initial encounter; Y92.009 Unspecified place in unspecified non-institutional (private) residence as the place of occurrence of the external cause
CPT/HCPCS: 70450-TC; 99284-25

== ENCOUNTER 2023-10-20 11:41 | Emergency (ER) | payer OTHER ==
[2023-10-20 12:04] VITALS: BP 123/64; PULSE 75; RESP 18; TEMP 98; BMI 29.2
[2023-10-20] MEDS ORDERED: predniSONE 20 MG TABLET (UD) ONE (14:31)
[2023-10-20] MEDS ORDERED: ACETAMINOPHEN 500 MG TABLET (FP) ONE (14:31)
[2023-10-20] MEDS: ACETAMINOPHEN 500 MG TABLET (FP) PO ONE (14:43)
[2023-10-20] MEDS: predniSONE 20 MG TABLET (UD) PO ONE (14:43)
== END 2023-10-20 14:43 | disposition home or self-care (01) ==
LOC: JERFT 11:41
DX: R20.0 Anesthesia of skin (principal); M19.90 Unspecified osteoarthritis, unspecified site
CPT/HCPCS: 73110-TC-LT-FY; 73130-TC-LT-FY; 99283-25

== ENCOUNTER 2023-11-11 13:10 | Emergency (ER) | payer OTHER ==
[2023-11-11 13:20] VITALS: RESP 18; TEMP 98; BMI 31.6
[2023-11-11 15:27] LABS: BASO % 0.5 % (0-2.0); EOS % 1.2 % (0-4.5); HEMATOCRIT 40.8 % (32.4-45.2); HEMOGLOBIN 13.5 GM/dL (10.7-15.3); LYMPH % 33.8 % (8-40); MCH 28.2 pg (25.7-33.7); MEAN CELL VOLUME 85.4 fl (80-96); MEAN PLT VOLUME 7.5 fl (7.5-11.1); MONO % 9.2 % (3.8-10.2); NEUT % 55.3 % (42.8-82.8); PLATELET COUNT 226 10^3/uL (134-434); RBC 4.78 M/mm3 (3.60-5.2); RDW 15.4 % (11.6-15.6); WHITE BLOOD COUNT 6.2 K/mm3 (4.0-10.0)
[2023-11-11 15:46] LABS: POTASSIUM 4.8 mmol/L (3.5-5.1)
[2023-11-11 15:48] LABS: CALCIUM 9.5 mg/dL (8.5-10.1)
[2023-11-11 15:49] LABS: ALBUMIN 3.6 g/dl (3.4-5.0); BLOOD UREA NITROGEN 16.8 mg/dL (7-18)
[2023-11-11 15:52] LABS: CREATININE 1.1 mg/dL (0.55-1.3)
[2023-11-11 15:53] LABS: TOT PROT 6.9 g/dl (6.4-8.2)
[2023-11-11 15:54] LABS: BILIRUBIN,TOTAL 0.3 mg/dL (0.2-1)
[2023-11-11 18:14] VITALS: BP 111/70; PULSE 67
== END 2023-11-11 18:14 | disposition home or self-care (01) ==
LOC: JER 13:10
DX: R00.2 Palpitations (principal); R09.89 Other specified symptoms and signs involving the circulatory and respiratory systems
CPT/HCPCS: 36415; 71046-TC-FY; 80053; 84484; 85025; 93005; 93010; 99285-25

== ENCOUNTER 2024-04-16 12:01 | Emergency (ER) | payer OTHER ==
[2024-04-16 12:09] VITALS: BP 103/67; RESP 19; TEMP 98.4; BMI 28.3
[2024-04-16 12:10] VITALS: PULSE 73
[2024-04-16] MEDS ORDERED: IBUPROFEN 400 MG TABLET (FP) PO ONE (13:03)
[2024-04-16] MEDS: IBUPROFEN 400 MG TABLET (FP) PO ONE (13:05)
== END 2024-04-16 14:08 | disposition home or self-care (01) ==
LOC: JERFT 12:01
DX: M25.571 Pain in right ankle and joints of right foot (principal); G89.29 Other chronic pain
CPT/HCPCS: 73610-TC-RT-FY; 73630-TC-RT-FY; 99283-25

== ENCOUNTER 2024-11-26 19:18 | Emergency (ER) | payer OTHER ==
[2024-11-26 19:27] VITALS: BP 126/66; PULSE 68; RESP 18; TEMP 98.5; BMI 29.2
[2024-11-26] MEDS ORDERED: ACETAMINOPHEN INJECTION 100 ML ONE (20:32)
[2024-11-26] MEDS: ACETAMINOPHEN 1000 MG/100 ML BAG IVPB ONE (20:50)
[2024-11-26] MEDS ORDERED: ACETAMINOPHEN 325 MG TABLET (FP) ONE (21:10)
[2024-11-26] MEDS: ACETAMINOPHEN 325 MG TABLET (FP) PO ONE (21:16)
[2024-11-26] MEDS: ACETAMINOPHEN 500 MG TABLET (FP) PO ONE (21:16)
== END 2024-11-26 21:19 | disposition home or self-care (01) ==
LOC: JER 19:18
DX: S20.02XA Contusion of left breast, initial encounter (principal); S20.212A Contusion of left front wall of thorax, initial encounter; W18.30XA Fall on same level, unspecified, initial encounter
CPT/HCPCS: 71045-TC-FY; 72170-TC-FY; 73560-TC-LT-FY; 99285-25